=== PATIENT | male | born 1960 | race Caucasian/White ===

== ENCOUNTER 2018-02-17 02:11 | Outpatient (CLI) | payer BC, SELFPAY | END 2018-02-17 02:31 | PROVIDERS: PCP Nurse Practitioner Family; Visit Provider Family Medicine | DX: R00.2 Palpitations (principal); Z53.8 Procedure and treatment not carried out for other reasons ==

== ENCOUNTER 2019-01-30 02:15 | Outpatient (CLI) | payer OTHER, SELFPAY ==
--- NOTE | 2019-01-30 15:35 | DI.MRI_ITS ---
EXAM: MR LUMBAR SPINE WO CLINICAL HISTORY: CHRONIC BACK PAIN, M54.9, DORSALGIA, OTHER CHRONIC PAIN, G89.29. TECHNIQUE: Multiplanar multisequence MRI was performed. MR examination of the lumbosacral spine was performed according to the usual protocol. COMPARISON: No exams were available for comparison FINDINGS: Note is made of superior endplate compression of the L1 vertebral body. No significant bony signal a bnormality seen. The conus medullaris appears intact. No bony central canal spinal stenosis seen. There is neural foraminal stenosis on the right at L5-S1. Otherwise, neural foramina appear fairly w ell maintained. There are facet hypertrophic changes particularly at L4-5 and L5-S1, which may be ch aracterized as moderate. At L5-S1, there is moderate disc bulge and there is a small right lateral disc herniation, which cont ributes to right neural foraminal narrowing at this level. At L4-5, there is minimal left lateral disc herniation. No gross neural impingement. Otherwise, the intervertebral discs at the levels surveilled appear intact . IMPRESSION: Right lateral disc herniation at L5-S1, minimal left lateral disc herniation at L4-5. Please correla te with the patient's neurologic examination.
== END 2019-01-30 02:35 ==
PROVIDERS: PCP Nurse Practitioner Family; Visit Provider Nurse Practitioner Family
DX: M54.5 Low back pain (principal); M51.27 Other intervertebral disc displacement, lumbosacral region; M47.817 Spondylosis without myelopathy or radiculopathy, lumbosacral region; G89.29 Other chronic pain
CPT/HCPCS: 72148

== ENCOUNTER 2019-04-08 13:43 | Outpatient (CLI) | payer BC, SELFPAY ==
--- NOTE | 2019-04-08 06:00 | DI.RAD_ITS ---
EXAM: XR PAIN CLINIC LUMBAR SP 2V CLINICAL HISTORY: Dx: Lumbar Radiculopathy. TECHNIQUE: Fluoroscopy was provided for the referring physician for guidance with performing injecti on procedure. COMPARISON: No exams were available for comparison FINDINGS: Please see procedure note for details. Fluoro Time: 23.2 seconds RADIATION DOSE DELIVERED:
[2019-04-08 13:52] VITALS: BP 128/86; PULSE 81; RESP 18; TEMP 36.7; O2SAT 99
--- NOTE | 2019-04-08 14:01 | PDOC.PAIN ---
Pain Clinic Procedure Note Procedure Note Procedure Note: Lumbar Epidural Steroid Injection Procedure Note COMMENTS: this is related to a work related injury that caused patient to have back and leg pain since last Thanksigiving. patient was evaluated by Ms Mai Kothari APRN in our pain clinic. His symptoms is consistent with lumbar radiculopathy. Pre-operative diagnosis: lumbar radiculopathy Post-oeprative diagnosis: same as above MERRY MAYNARD has been referred to the [facility] for lumbar epidural steroid injection. The patient was greeted by the nurse who verified patients name and . Patient was then taken to the fluoroscopy suite. The patient was interviewed and the medial record reviewed. There were no medical, pharmacologic, radiographic, or other structural contraindications to attempting fluoroscopically guided lumbar epidural steroid injection. Risks and expected side effects as well as potential benefits of the procedure were reviewed and voiced concerns expressed. The patient consent form was signed and witnessed. Standard patient time-out procedure was performed. The patient was placed in the prone position on the fluoroscopy table and automated blood pressure cuff and pulse oximeter applied. The skin entry point for entering/approaching the epidural space by a L5-S1 and marked. Following thorough chlorhexadine preparation of the skin and draping and 1% lidocaine infiltration of the skin entry point and subcutaneous tissues, a 18 gauge Touhy needle was placed under fluoroscopic guidance and with loss of resistance technique into the epidural space. Needle tip placement and depth were aided and confirmed by fluoroscopy. There was no paresthesia or return of blood or CSF through the needle. 1 cc's of Omnipaque 240 was injected with clear epidural spread confirmed with fluoroscopy. 80mg depomedrol was injected, followed by 1cc of preservative free normal saline. injection of medicine reproduced patient's usual right buttock pain. There was not any unusual discomfort expressed by MERRY MAYNARD. Patient's vital signs were stable throughout the procedure and were as recorded in nursing records. Follow up plans and appointments were discussed with patient. Post procedure instruction was given as documented in nursing records and having met discharge criteria and was discharged from the [facility]. COMMENTS: If this procedure is helpful, it can be completed up to 3 times per 12 months. Of note, immediately after the procedure was completed, patient reported feeling shaky, lightheaded, nausea. He was placed in supine position in [place] position, vital signs were checked and remained stable. patient continued to endorse shaky and feeling chills, temperature was checked twice and it was afebrile 36.8C and 37.1C. Patient's bilateral lower extremity strength were checked and remained 5 out of 5 for bilateral hip flexors, hip extensors, knee extensors/flexion, dorsiflexion and plantar flextion. sensation were intact to light touch. Patient was observed to be fully ambulatory without assistance. He reports worsening pain over the injection site, rated it as 8 out of 10 compared to 5 out of 10 when he first presented for today's injection. Then patient reported that about 13 years ago, he had a similar back injection, which immediately after the procedure, he felt his genital area become numb and remained that way for several hours. He denies a history of prior contrast allergy. I recommended to patient to be observed in our post-op recovery area, get an IV started and receive 500cc of LR for symptomatic relief given he continues to report persistent dizziness. He refused the treatment and stated I do not wish to get another needle stuck in me, I just had one in my back. I will be fine and my is coming to pick me up. Patient was given water for hydration and BP, HR and Temperature were checked. BP 130/80, HR 22 and T afebrile. Patient denies chest pressure, chest pain. He was discharged after having met discharge criteria. His picked him up. I personally performed the entire procedure. Joel Zamora MD Pain Management
[2019-04-08 14:43] VITALS: BP 131/98; PULSE 83; RESP 20; TEMP 37.1; O2SAT 99
[2019-04-08 14:50] VITALS: BP 136/85; PULSE 78; RESP 13; O2SAT 99
[2019-04-08 14:55] VITALS: BP 155/98; PULSE 77; RESP 12; O2SAT 100
[2019-04-08 15:05] VITALS: BP 144/97; PULSE 78; RESP 22; TEMP 36.8; O2SAT 99
[2019-04-08] MEDS: Omnipaque 240 MG/ML 50 ML BTL IJ (15:30)
[2019-04-08] MEDS: methylPREDNISolone ACETATE 80 MG/ML VIAL IJ (15:31)
== END 2019-04-08 14:03 ==
PROVIDERS: PCP Nurse Practitioner Family; Visit Provider Internal Medicine
DX: M54.16 Radiculopathy, lumbar region (principal)
CPT/HCPCS: 62323; 72100; J1040; Q9967

== ENCOUNTER 2019-07-10 11:41 | Inpatient (IN) | payer BC, SELFPAY ==
[2019-07-10] VITALS (53 sets, daily range): BP systolic 131–160; BP diastolic 78–103; PULSE 18–95; RESP 13–25; TEMP 36.4–37.4; O2SAT 94–100
[2019-07-10] MEDS: Normal Saline 1,000 ML 1000 ML IV ×2 (12:15→13:08)
[2019-07-10] MEDS: Ondansetron 4 MG/2 ML VIAL (12:20)
--- NOTE | 2019-07-10 12:30 | DI.CT_ITS ---
EXAM: CT ABDOMEN PELVIS W CLINICAL HISTORY: epigastric pain. TECHNIQUE: Imaging Protocol: Axial computed tomography images with coronal and sagittal reformatted images were created and reviewed CONTRAST MATERIAL: Intravenous: Omnipaque 350 Contrast volume:80 ml Oral: no COMPARISON: No exams were available for comparison FINDINGS: Exam is limited by lack of oral contrast and lack of intra-abdominal fat as well as patient motion. Bowel is not well evaluated. ABDOMEN: Lung Bases: Mild dependent changes.. Liver: Fatty infiltration.. No measurable mass. Gallbladder and biliary tract: No radiodense calculus or dilation. Pancreas: Normal density, no abnormal calcifications or inflammatory process. Spleen: Normal. Kidneys: Normal size, contour and axis. No radiodense stones or obstructive uropathy. No masses seen. Adrenal glands: No masses seen. Abdominal Aorta: Abdominal portion non-dilated. Mild calcification. PELVIS: Bladder: Mildly distended. Question of wall thickening. No mass or stone is visible.. Bowel: There is mild dilatation of loops of small bowel in the mid to lower abdomen which are fluid f illed. No bowel wall thickening or pneumatosis is seen. No transition point is visible. The append ix appears normal. The colon contains a moderate quantity of stool. There is sigmoid diverticulosis but no evidence of diverticulitis.. Peritoneal cavity: No ascites, collection or mesenteric inflammatory response. No free air. Bones: The spine appears osteoporotic. Degenerative disc changes are seen.. Reproductive organs: Mildly enlarged prostate.. Lymph nodes: Unremarkable. Impression: Mildly dilated fill fluid-filled loops of mid small bowel without definite transition point. Finding s could indicate a enteritis versus mild partial small bowel obstruction.. RADIATION DOSE DELIVERED: 455.12mGy.cm Total DLP DATA REPOSITORY: All CT scans at this facility are submitted to the National Radiology Data Registry (NRDR) Dose Index Registry (DIR) with the [employer] ([employer]). RADIATION OPTIMIZATION: All CT scans at this facility use at least one of these dose optimization te chniques: automated exposure control; mA and/or kV adjustment per patient size (includes targeted exa ms where dose is matched to clinical indication); or iterative reconstruction.
[2019-07-10] MEDS: PANTOPRAZOLE 80 MG in Normal Saline 100 ML 10 MG IV (12:47)
[2019-07-10 12:51] LABS: Absolute Basophil Count 0.01 k/cumm (0.0-0.2); Absolute Eosinophil Count 0.02 k/cumm (0.0-0.7); Absolute Lymphocyte Count 1.09 k/cumm (1.2-3.4); Absolute Monocyte Count 0.84 k/cumm (0.11-0.7); Absolute Neutrophil Count 3.56 k/cumm (1.2-6.7); Basophils % 0.2; Eosinophils % 0.4; HCT 43.3 % (40.0-50.0); HGB 15.2 g/dL (13.5-17.5); Immature Grans % 1.8 %; Lymphocytes % 19.4; Mean Corp. HGB Concentration 35.1 g/dL (32.0-36.0); Mean Corpuscular Hemoglobin 33.3 pg (27.0-33.0); Mean Platelet Volume 9.7 fL (8.0-11.0); Monocytes % 14.9; Neutrophils % 63.3; Platelet Count 204 x1000/uL (130-400); RBC 4.56 m/cumm (4.50-6.00); White Blood Cell Count 5.62 k/cumm (4.4-10.8)
[2019-07-10] MEDS: diphenhydrAMINE 50 MG/ML VIAL IVP (12:56)
--- NOTE | 2019-07-10 12:58 | ED.GENADUL_ITS ---
Discharge Plan Disposition Patient Disposition: [facility] INPATIENT Condition: Stable Discharge Details Chief Complaint: Abd Prob Clinical Impression: Nausea & vomiting Admit Date/Time: 07/10/19 16:41 Admit Provider: Mirian Wetzel Attending Provider: Mirian Wetzel Primary Care Provider: Jazzy Hyde ED Provider: Elly Gomez Discharge Data Discharge Date/Time-TO BE ENTERED AT DEPARTURE: 07/10/19 18:35 Medical Decision Making <ALFA Titus - Last Filed: 07/11/19 08:07> 58-year-old gentleman with history of chronic back pain, upper GI bleed, alcohol abuse, presents for abdominal pain, nausea, vomiting that began earlier today. He appears anxious, dry heaving, in mild distress. It does make examination rather difficult. He does appear uncomfortable. Will initiate IV access, give IV fluid, Zofran, GI cocktail as well as Protonix for his known history of GI bleeding. Differential includes but not excluded to gastric ulcer, gastritis, alcoholic hepatitis, pancreatitis, GI bleed, bowel obstruction, cholecystitis. Case was discussed with Dr. Andrew who evaluate the patient in the room. Please see his note. In the meantime I was able to review studies from [place] [facility], CT chest, abdomen, pelvis unremarkable. Patient received very little relief from initial medications. Now given 1 mg IV Ativan as I do question if there could be a component of withdrawal. Given Compazine and Benadryl. Initial laboratory values are unremarkable for any acute or emergent process. CT imaging reveals suspicion for enteritis versus mild partial small bowel obstruction. Given the mild partial small bowel obstruction I discussed the case with our surgical team, Dr. Wetzel. She reviewed the CT and is recommending an abdominal ultrasound to further evaluate the gallbladder. Gall bladder ultrasound ordered. Medical Records Medical records reviewed: Yes I reviewed the patient's medical records. Imaging Data Radiologic Study: Attestation: I personally reviewed and interpreted this imaging study as follows: Imaging: CT Scan Radiologist's impression: Mildly dilated fluid-filled loops of mid small bowel without definitive transition point. Findings could be indicative of enteritis versus mild partial small bowel obstruction Lab Data Lab results reviewed: Yes I reviewed the patient's lab results. Lab results narrative: Laboratory Tests Range/Units 05/29/20 05/29/20 05/29/20 11:50 11:50 11:50 WBC (4.4-10.8) k/cumm 5.62 RBC (4.50-6.00) m/cumm 4.56 Hgb (13.5-17.5) g/dL 15.2 Hct (40.0-50.0) % 43.3 MCV (80-95) fL 95.0 MCH (27.0-33.0) pg 33.3 H MCHC (32.0-36.0) g/dL 35.1 RDW (11.8-14.1) % 14.0 Plt Count (130-400) x1000/uL 204 MPV (8.0-11.0) fL 9.7 Immature Gran % % 1.8 Neutrophils % 63.3 Lymphocytes % 19.4 Monocytes % 14.9 Eosinophils % 0.4 Basophils % 0.2 Absolute Neutrophils (1.2-6.7) k/cumm 3.56 Absolute Lymphocytes (1.2-3.4) k/cumm 1.09 L Absolute Monocytes (0.11-0.7) k/cumm 0.84 H Absolute Eosinophils (0.0-0.7) k/cumm 0.02 Absolute Basophils (0.0-0.2) k/cumm 0.01 PT (9.3-11.0) sec 9.0 L INR (0.9-1.1) 0.9 Sodium (136-145) mmol/L Potassium (3.5-5.1) mmol/L Chloride (98-107) mmol/L Carbon Dioxide (21.0-32.0) mmol/L Anion Gap (3-11) mmol/L BUN (7-18) mg/dL Creatinine (0.70-1.30) mg/dL Estimated GFR/1.73 m2 (mL/min/1.73m2) Glucose (74-106) mg/dL Lactate (0.6-1.4) mmol/L Calcium (8.5-10.1) mg/dL Total Bilirubin (0.2-1.0) mg/dL AST (15-37) U/L ALT (16-63) U/L Alkaline Phosphatase (46-116) U/L Total Protein (6.4-8.2) g/dL Albumin (3.4-5.0) g/dL Lipase (73-393) U/L 141 Urine Color (Yellow) Urine Clarity (Clear) Urine pH (5-8) Ur Specific [place] (1.005-1.025) Urine Protein (Negative) mg/dL Urine Ketones (Negative) mg/dL Urine Blood (Negative) Urine Nitrite (Negative) Urine Bilirubin (Negative) Urine Urobilinogen (Up TO 0.2) EU/dL Ur Leukocyte Esterase (Negative) Urine Glucose (Negative) mg/dL Ethyl Alcohol (<3) mg/dL Range/Units 07/10/19 07/10/19 07/10/19 11:50 12:24 13:15 WBC (4.4-10.8) k/cumm RBC (4.50-6.00) m/cumm Hgb (13.5-17.5) g/dL Hct (40.0-50.0) % MCV (80-95) fL MCH (27.0-33.0) pg MCHC (32.0-36.0) g/dL RDW (11.8-14.1) % Plt Count (130-400) x1000/uL MPV (8.0-11.0) fL Immature Gran % % Neutrophils % Lymphocytes % Monocytes % Eosinophils % Basophils % Absolute Neutrophils (1.2-6.7) k/cumm Absolute Lymphocytes (1.2-3.4) k/cumm Absolute Monocytes (0.11-0.7) k/cumm Absolute Eosinophils (0.0-0.7) k/cumm Absolute Basophils (0.0-0.2) k/cumm PT (9.3-11.0) sec INR (0.9-1.1) Sodium (136-145) mmol/L 132 L Potassium (3.5-5.1) mmol/L 3.9 Chloride (98-107) mmol/L 94 L Carbon Dioxide (21.0-32.0) mmol/L 27.2 Anion Gap (3-11) mmol/L 10.8 BUN (7-18) mg/dL 10 Creatinine (0.70-1.30) mg/dL 0.84 Estimated GFR/1.73 m2 (mL/min/1.73m2) >= 60.00 Glucose (74-106) mg/dL 103 Lactate (0.6-1.4) mmol/L Calcium (8.5-10.1) mg/dL 9.6 Total Bilirubin (0.2-1.0) mg/dL 0.6 AST (15-37) U/L 72 H ALT (16-63) U/L 122 H Alkaline Phosphatase (46-116) U/L 79 Total Protein (6.4-8.2) g/dL 7.9 Albumin (3.4-5.0) g/dL 4.3 Lipase (73-393) U/L Urine Color (Yellow) Yellow Urine Clarity (Clear) Clear Urine pH (5-8) 7.0 Ur Specific [place] (1.005-1.025) 1.020 Urine Protein (Negative) mg/dL Negative Urine Ketones (Negative) mg/dL 15 H Urine Blood (Negative) Negative Urine Nitrite (Negative) Negative Urine Bilirubin (Negative) Negative Urine Urobilinogen (Up TO 0.2) EU/dL 1.0 H Ur Leukocyte Esterase (Negative) Negative Urine Glucose (Negative) mg/dL Negative Ethyl Alcohol (<3) mg/dL 4.6 Range/Units 07/10/19 13:25 WBC (4.4-10.8) k/cumm RBC (4.50-6.00) m/cumm Hgb (13.5-17.5) g/dL Hct (40.0-50.0) % MCV (80-95) fL MCH (27.0-33.0) pg MCHC (32.0-36.0) g/dL RDW (11.8-14.1) % Plt Count (130-400) x1000/uL MPV (8.0-11.0) fL Immature Gran % % Neutrophils % Lymphocytes % Monocytes % Eosinophils % Basophils % Absolute Neutrophils (1.2-6.7) k/cumm Absolute Lymphocytes (1.2-3.4) k/cumm Absolute Monocytes (0.11-0.7) k/cumm Absolute Eosinophils (0.0-0.7) k/cumm Absolute Basophils (0.0-0.2) k/cumm PT (9.3-11.0) sec INR (0.9-1.1) Sodium (136-145) mmol/L Potassium (3.5-5.1) mmol/L Chloride (98-107) mmol/L Carbon Dioxide (21.0-32.0) mmol/L Anion Gap (3-11) mmol/L BUN (7-18) mg/dL Creatinine (0.70-1.30) mg/dL Estimated GFR/1.73 m2 (mL/min/1.73m2) Glucose (74-106) mg/dL Lactate (0.6-1.4) mmol/L 1.3 Calcium (8.5-10.1) mg/dL Total Bilirubin (0.2-1.0) mg/dL AST (15-37) U/L ALT (16-63) U/L Alkaline Phosphatase (46-116) U/L Total Protein (6.4-8.2) g/dL Albumin (3.4-5.0) g/dL Lipase (73-393) U/L Urine Color (Yellow) Urine Clarity (Clear) Urine pH (5-8) Ur Specific [place] (1.005-1.025) Urine Protein (Negative) mg/dL Urine Ketones (Negative) mg/dL Urine Blood (Negative) Urine Nitrite (Negative) Urine Bilirubin (Negative) Urine Urobilinogen (Up TO 0.2) EU/dL Ur Leukocyte Esterase (Negative) Urine Glucose (Negative) mg/dL Ethyl Alcohol (<3) mg/dL <Jae Andrew MD - Last Filed: 07/10/19 16:56> Patient seen, examined, and discussed with ALFA Lin and KALA Gomez. I agree with treatment plan as discussed/documented. I spoke with Dr. Wetzel who is here to evaluate the patient. Patient to be admitted to surgical service by Dr. Wetzel for intractable vomiting inability to tolerate p.o. <Elly Gomez - Last Filed: 07/10/19 22:21> 1623: Assumed care of patient from ALFA Farias Dr. Stoiber surgeon on- call is currently at bedside for patient evaluation and possible admission. Patient continues to complain of nausea, Phenergan ordered. 1648: Per [place], patient had a negative COVID-19 test result on July 06. Patient is to be admitted for an endoscopy in the a.m. per Dr. Wetzel. HPI <ALFA Titus - Last Filed: 07/11/19 08:07> General Mode of arrival: ambulatory . Date/Time Provider Initiated Documentation: 07/10/19 11:54 . Limitations to Documentation: no limitations . Information obtained by: patient . HPI Narrative: This is a 58-year-old gentleman with history of low back pain, anxiety, duodenitis, chronic alcohol abuse, upper GI bleed, presenting to the ER today for evaluation of diffuse upper abdominal pain, nausea, vomiting that began approximately 5 hours ago. He reports a history of GI bleed approximately 1 year ago. Reports that he had been pain-free up until about 4 days ago, was seen at the ER in [place] and subsequently admitted, discharged 1-1/2 days ago. Patient reports that while he was at [facility] he received CT imaging and ultrasound and no emergent process was found although he reports that they were going to do further studies for his gallbladder. Patient admits to drinking alcohol daily but is cut down his alcohol use to only a couple beers a day. He denies drug use. Patient denies recent illness or trauma. Denies headache, fever, chest pain, shortness of breath, dysuria, constipation. Reports loose stool although his most recent stools were not dark and tarry or consistent with bright red blood. Related Data Home Medications Medication Instructions Recorded Confirmed melatonin 3 mg PO HS 09/20/17 07/10/19 ibuprofen 800 mg tablet 800 mg PO TID PRN 02/24/18 07/10/19 acetaminophen 500 mg tablet 500 - 1,000 mg PO TID PRN #90 02/28/18 07/10/19 tab-cap ondansetron 4 mg disintegrating 4 mg PO .Q4-6H PRN #60 tab-cap 02/28/18 07/10/19 tablet pantoprazole 40 mg tablet,delayed 40 mg PO BID 02/28/18 07/10/19 release polyethylene glycol 3350 17 17 gm PO DAILY PRN #119 gm 02/28/18 07/10/19 gram/dose oral powder sucralfate 1 gram tablet 1 gm PO BID tab 02/28/18 07/10/19 multivitamin 1 tab PO DAILY 03/05/18 07/10/19 lidocaine 5 % topical patch 1 patch TP .q 12 h PRN #10 each 04/07/18 07/10/19 methocarbamol 500 mg tablet 500 mg PO HS PRN #60 tab-cap 06/09/19 07/10/19 aluminum-mag hydroxide-simethicone 10 ml PO Q6H PRN 07/10/19 07/10/19 200 mg-200 mg-20 mg/5 mL oral susp Previous Rx's Medication Instructions Recorded acetaminophen 500 mg tablet 500 - 1,000 mg PO TID PRN #90 02/28/18 tab-cap ondansetron 4 mg disintegrating 4 mg PO .Q4-6H PRN #60 tab-cap 02/28/18 tablet polyethylene glycol 3350 17 17 gm PO DAILY PRN #119 gm 02/28/18 gram/dose oral powder lidocaine 5 % topical patch 1 patch TP .q 12 h PRN #10 each 04/07/18 methocarbamol 500 mg tablet 500 mg PO HS PRN #60 tab-cap 06/09/19 Allergies Allergy/AdvReac Type Severity Reaction Status Date / Time No Known Allergies Allergy Unverified 07/10/19 11:53 General Stated Complaint: Abd Prob GALLO: 3 Review of Systems <ALFA Titus - Last Filed: 07/11/19 08:07> Constitutional Constitutional: Denies fatigue, Denies fever(s), Denies headache(s) and Denies weakness Eyes Eyes: Denies change in vision ENT Ears, Nose, Mouth, and Throat: Denies headache(s) and Denies sore throat Cardiovascular Cardiovascular: Denies chest pain and Denies dyspnea Respiratory Respiratory: Denies cough and Denies dyspnea Gastrointestinal Gastrointestinal: Reports abdominal pain, Denies melena, Denies constipation, Reports cramping, Reports loose stools, Reports nausea and Reports vomiting Genitourinary Genitourinary: Denies dysuria Musculoskeletal Musculoskeletal: Reports back pain (Chronic in nature), Denies numbness and Denies tingling Integumentary/Breasts Skin/Breast: Denies rash Neurologic Neurologic: Denies headache(s), Denies numbness, Denies tingling and Denies weakness Psychiatric Psychiatric: Reports anxiety Endocrine Endocrine: Denies fatigue PFSH <ALFA Titus - Last Filed: 07/11/19 08:07> Medical History (Updated 07/10/19 @ 20:54 by Mirian Wetzel DO) Abnormal LFTs (Inactive 04/27/15) Alcohol use disorder (Chronic) Anxiety (Chronic 01/26/13) With sleep disruption Remeron effective management Diverticulosis of large intestine without hemorrhage (Chronic 04/27/15) Duodenitis (Acute) 02/22/2018 EGD: duodenitis and 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 Hemorrhoids (Resolved 01/26/13) Hemorrhoidectomy 11/2012 [facility] Hypertension (Acute) 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) Intractable nausea and vomiting (Acute) Palpitation (Resolved) RUQ abdominal pain (Acute) Upper GI hemorrhage (Acute) 02/2018 [facility] Hospital admission; 02/22/2018 EGD (Kwabnea Bucio MD/Surgeon) showing duodenitis with changes concerning for possible malignancy Family History Father , From prostate CA Prostate cancer Social History Smoking/Tobacco Use Status: Never Alcohol Intake: current Alcohol Intake frequency: 3 or more drinks per day Alcohol type: beer Details: Rehab, August 2017, trying to quit Drug use: Daily Substance use type: marijuana Details: states usually has 8 beers a day couple beers last night - none today 1 hit of marijuana today Caregiver/Support person: No Household members: spouse Housing: house Number of Children: 0 Communication Needs: Hard of Hearing 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 Sexually active: Yes Current gender identity: male What type of physical activity do you participate in: regular exercise Frequency: 1-2 times per week Seatbelt use: always Working smoke detector in home: Yes Carbon monox detector in home: Yes Do you feel safe at home: Yes Do you feel safe in your relationship?: Yes Exam <ALFA Titus - Last Filed: 07/11/19 08:07> Const General: cooperative, in distress mild (Dry heaving) and anxious Orientation: alert and awake HENMT Head: normal to inspection, normocephalic and atraumatic Mouth: moist mucous membranes Throat: posterior oropharynx normal Eyes Conjunctivae: conjunctivae normal Neck Neck: normal visual inspection, full ROM, trachea midline, supple and nontender Resp Effort & Inspection: normal respiratory effort and able to speak in complete sentences Auscultation: clear to auscultation bilaterally Cardio Rate: regular rate Rhythm: regular rhythm GI Inspection: normal to inspection Palpation: soft, not firm, guarding in the LUQ and in the RUQ, not rigid and tender in the epigastrum, in the LUQ and in the RUQ; with no rebound tenderness Auscultation: normal bowel sounds Back/Spine/Pelvis Back: No back tenderness Skin General skin exam: no rashes or lesions noted Neuro General: patient alert, patient awake, moves all extremities and no focal motor deficits Motor: muscle tone normal throughout Sensory Exam: no sensory deficits noted Extrem General: normal to inspection, full ROM and capillary refill normal Psych Appearance: grossly normal Mental Status: mental status grossly normal Course <ALFA Titus - Last Filed: 07/11/19 08:07> Vital Signs Vital signs: Vital Signs Temperature 36.4 C L 07/10/19 11:45 Pulse 95 H 07/10/19 11:45 Respiratory Rate 24 07/10/19 11:45 Blood Pressure 150/96 H 07/10/19 11:45 Pulse Oximetry 99 07/10/19 11:45 Temperature 36.4 C L 07/10/19 11:45 Temperature Source Skin 07/10/19 11:45 Pulse 95 H 07/10/19 11:45 Respiratory Rate 24 07/10/19 11:45 Blood Pressure 150/96 H 07/10/19 11:45 Pulse Oximetry 99 07/10/19 11:45 Oxygen Delivery Method Room Air 07/10/19 11:45 Oxygen Flow Rate 0 07/10/19 11:45 Pain Level 10 07/10/19 11:45 Lab/Test Results Lab/Test Results: Laboratory Tests Range/Units 07/10/19 11:50 WBC (4.4-10.8) k/cumm 5.62 RBC (4.50-6.00) m/cumm 4.56 Hgb (13.5-17.5) g/dL 15.2 Hct (40.0-50.0) % 43.3 MCV (80-95) fL 95.0 MCH (27.0-33.0) pg 33.3 H MCHC (32.0-36.0) g/dL 35.1 RDW (11.8-14.1) % 14.0 Plt Count (130-400) x1000/uL 204 MPV (8.0-11.0) fL 9.7 Immature Gran % % 1.8 Neutrophils % 63.3 Lymphocytes % 19.4 Monocytes % 14.9 Eosinophils % 0.4 Basophils % 0.2 Absolute Neutrophils (1.2-6.7) k/cumm 3.56 Absolute Lymphocytes (1.2-3.4) k/cumm 1.09 L Absolute Monocytes (0.11-0.7) k/cumm 0.84 H Absolute Eosinophils (0.0-0.7) k/cumm 0.02 Absolute Basophils (0.0-0.2) k/cumm 0.01 Sign Out <ALFA Titus - Last Filed: 07/11/19 08:07> Sign Out Data: Sign Out Comment: Pending right upper quadrant ultrasound, surgical consultation, reassessment and final disposition Last updated by Nikolas Lin PA at 07/10/19 15:46
[2019-07-10] MEDS: LORazepam 2 MG/ML VIAL 1 MG IVP (12:59)
[2019-07-10] MEDS: Prochlorperazine 10 MG/2 ML VIAL IVP (13:02)
[2019-07-10 13:03] LABS: Lipase 141 U/L (73-393)
[2019-07-10 13:05] LABS: ETHANOL BLOOD 4.6 mg/dL (<3)
[2019-07-10 13:08] LABS: ALT 122 U/L (16-63); AST 72 U/L (15-37); Albumin 4.3 g/dL (3.4-5.0); Alkaline Phosphatase 79 U/L (46-116); Anion Gap 10.8 mmol/L (3-11); BUN 10 mg/dL (7-18); Bilirubin, Total 0.6 mg/dL (0.2-1.0); CO2 27.2 mmol/L (21.0-32.0); CREATININE 0.84 mg/dL (0.70-1.30); Calcium 9.6 mg/dL (8.5-10.1); Chloride 94 mmol/L (98-107); Glucose 103 mg/dL (74-106); Potassium 3.9 mmol/L (3.5-5.1); Sodium 132 mmol/L (136-145); Total Protein 7.9 g/dL (6.4-8.2)
[2019-07-10] MEDS: Normal Saline Flush 10 ML SYR IVP ×2 (13:08→19:52)
[2019-07-10 13:10] LABS: INR 0.9 (0.9-1.1)
[2019-07-10 13:28] LABS: Bilirubin Negative (Negative); Blood Negative (Negative); Clarity Clear (Clear); Glucose Negative (Negative); Ketones 15 mg/dL (Negative); Leukocyte Esterase Negative (Negative); Nitrite Negative (Negative)
[2019-07-10 13:29] LABS: Lactate 1.3 mmol/L (0.6-1.4)
[2019-07-10] MEDS: Normal Saline - Diluent 50 ML VIAL IV (13:45)
[2019-07-10] MEDS: Omnipaque 350 MG/ML 100 ML BTL IJ (13:47)
--- NOTE | 2019-07-10 14:45 | DI.US_ITS ---
EXAM: US ABDOMEN CLINICAL HISTORY: Right upper quadrant pain TECHNIQUE: Ultrasound performed using standard protocol. COMPARISON: No exams were available for comparison FINDINGS: The liver is normal in size. There is mildly increased echogenicity, consistent with fatty infiltra tion. The gallbladder is somewhat contracted. No stones, wall thickening or pericholecystic fluid i s seen. The common bile duct measures 3 millimeters. There is no tenderness while scanning over the gallbladder. Spleen is normal in size. A small splenic granuloma is seen. The kidneys are normal in size. No hydronephrosis or stones are seen. There is no ascites. The aorta is normal in diamete r. IMPRESSION: Mild fatty infiltration of the liver. Contracted gallbladder. No evidence of stones or ductal dil atation. DATA REPOSITORY:
[2019-07-10 15:07] LABS: C-Reactive Protein 0.77 mg/dL (0.0-0.3)
[2019-07-10 15:34] LABS: GGT 179 U/L (15-85)
--- NOTE | 2019-07-10 16:48 | HPE_ITS ---
Date of service: 07/10/19 Time of Service: 16:49 Assessment and Plan Assessment and plan (1) Intractable nausea and vomiting: Status: Acute Assessment and plan: pt has thrown up x2 GI cocktails in the ED Sunny did not help -WIll admit for hydration and antiemetics. EGD in am Informed consent is obtained for the procedural (explained in simple layman's terms that the pt and/or family could understand) explaining risks vs benefits and alternatives to the procedure and consequences if we do not do the procedure and need/rational for the procedure. Risks include but are not limited to: bleeding, infection, perforation of esophagus, stomach, colon, small intestines, bronchus or trachea, or PTX. This would necessitate emergency surgery to repair the damage w/ possible ostomy; and other associated complications w/ the required surgery. Also complications of anesthesia including aspiration, SC/CVA/. (2) Chronic back pain: Status: Acute (3) Duodenitis: Status: Acute Assessment and plan: Hs of duodenitis and duodenal hemorrhage. Pt is suppose yo be onPPI & carafet. Pt isn't sure if he is taking meds. extensive ETOH use d/o. He also takes NSAID's regularily. (4) Alcohol use disorder: Status: Chronic Assessment and plan: no hx of DT's or seizures when he stops using ETOH. (5) Hemorrhoids: Status: Resolved (6) Abnormal LFTs: Status: Inactive (7) Hypertension: Status: Acute (8) RUQ abdominal pain: Status: Acute Assessment and plan: HIDA scan on Saturday History of Present Illness Consults Consult date: 07/10/19 Requesting physician: Jae Andrew Narrative: pt present to ED w/ intractable n/v. And right upper quadrant pain/abdominal pain. He is also been having diarrhea. Patient was just in [facility] for 48 hours with the same signs of symptoms. he was on Protonix and Carafate. [place] thought that his signs and symptoms were related to gallbladder disease. He had a normal ultrasound and CAT scan and relatively normal labs there as well, as well as here today. He has a longstanding history of alcohol abuse. He has a history of a bleeding duodenal ulcer- in 2019. At that time, he was vomiting blood and having dark tarry stools. He is not vomiting up any blood today. He is hemodynamically stable. His signs and symptoms seem to be more compatible with gallbladder disease. However he does have a history of ulcer disease. He is a long standing alcoholic, and also takes a lot of ibuprofen for chronic back pain. He doesn't use tobacco products. He is not vomiting up any blood. He is not had any black tarry stools. He was recently in [facility] for 48hrs. He says he felt better, and went home. He says he was not put on any stomach medication. (He was placed on a PPI and carafate per the records). He did go home adn drink. It is unclear if he took his meds when he went home. He also ate a hamburger last pm. When he woke up this am- he had stomach pain adn nausea again. He is also experiencing diarrhea. It is mostly liquid. There is no blood. He has not been on abx. He has not been on abx that he is aware of. He doesn' t know if there is a fam hx of GB Dx. His s/s today feel like when he had the doudenal ulcer. He did not have any w/drawl s/s at [place]. He not had seizures or DT's when stopping ETOH. ED staff says when he came into the ED he did have pretty signif abdom pain. He has been medicated for pain. At this point he is unable to keep anything down despite having a GI cocktail and IV Protonix. So I think we are going to have. We will plan on doing EGD in the a.m. And hopefully we can get a HIDA scan on Saturday if he still not feeling well. Pt had a Covid test on 07/06 and was neg. 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) Palpitation (Resolved) Upper GI hemorrhage (Acute) 02/2018 [facility] Hospital admission; 02/22/2018 EGD (Kwabena Bucio MD/Surgeon) showing duodenitis with changes concerning for possible malignancy Family History Father , From prostate CA Prostate cancer Social History Smoking/Tobacco Use Status: Never Alcohol Intake: current Alcohol Intake frequency: 3 or more drinks per day Alcohol type: beer Details: Rehab, August 2017, trying to quit Drug use: Daily Substance use type: marijuana Details: states usually has 8 beers a day couple beers last night - none today 1 hit of marijuana today Caregiver/Support person: No Household members: spouse Housing: house Number of Children: 0 Communication Needs: Hard of Hearing 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 Sexually active: Yes Current gender identity: male What type of physical activity do you participate in: regular exercise Frequency: 1-2 times per week Seatbelt use: always Working smoke detector in home: Yes Carbon monox detector in home: Yes Do you feel safe at home: Yes Do you feel safe in your relationship?: Yes Meds Home Medications and Allergies Home Medications Medication Instructions Recorded Confirmed Type melatonin 3 mg PO HS 09/20/17 07/10/19 History ibuprofen 800 mg tablet 800 mg PO TID PRN 02/24/18 07/10/19 History acetaminophen 500 mg tablet 500 - 1,000 mg PO TID PRN #90 02/28/18 07/10/19 Rx tab-cap ondansetron 4 mg disintegrating 4 mg PO .Q4-6H PRN #60 tab-cap 02/28/18 07/10/19 Rx tablet pantoprazole 40 mg tablet,delayed 40 mg PO BID 02/28/18 07/10/19 History release polyethylene glycol 3350 17 17 gm PO DAILY PRN #119 gm 02/28/18 07/10/19 Rx gram/dose oral powder sucralfate 1 gram tablet 1 gm PO BID tab 02/28/18 07/10/19 History multivitamin 1 tab PO DAILY 03/05/18 07/10/19 History lidocaine 5 % topical patch 1 patch TP .q 12 h PRN #10 each 04/07/18 07/10/19 Rx methocarbamol 500 mg tablet 500 mg PO HS PRN #60 tab-cap 06/09/19 07/10/19 Rx aluminum-mag hydroxide-simethicone 10 ml PO Q6H PRN 07/10/19 07/10/19 History 200 mg-200 mg-20 mg/5 mL oral susp Allergies Allergy/AdvReac Type Severity Reaction Status Date / Time No Known Allergies Allergy Unverified 07/10/19 11:53 Exam Const General: cooperative and no acute distress Nutritional Appearance: cachectic and malnourished Orientation: alert, awake and oriented x3 HENMT Head: normal to inspection, normocephalic and atraumatic Ears: hearing grossly normal bilaterally and external ears normal General nose exam: external nose normal Face and sinus: normal facial exam and sinuses nontender Mouth: oral mucosae normal, lip normal, tongue normal and moist mucous membranes Teeth and gingiva: poor dentition Other: appears older than states age. Eyes General: appearance normal, both eyes and all related structures Conjunctivae: conjunctivae normal Sclera: sclerae normal Pupils: PERRL Neck Neck: normal visual inspection and full ROM Chest Chest: normal inspection of the chest Resp Effort & Inspection: normal respiratory effort, able to speak in complete sentences, no cough, no nasal flaring, not tachypneic and no use of accessory muscles Auscultation: clear to auscultation bilaterally, no rales, no rhonchi and no wheezes Cardio Jugular venous pressure: no JVD Rate: regular rate Rhythm: regular rhythm GI Inspection: normal to inspection, no edema and distended Palpation: soft, no masses, tender in the epigastrum and in the RUQ; with no rebound tenderness and Rovsing's sign negative and No ascites Auscultation: normal bowel sounds Skin General skin exam: no rashes or lesions noted Trauma: no lacerations or abrasions Neuro General: patient alert, patient oriented x3, oriented, gait normal, moves all extremities, no focal motor deficits and CN's II-XI intact bilaterally Cognition: normal cognition Speech: speech normal Gait: normal gait Motor: muscle tone normal throughout Extrem General: normal to inspection, full ROM and no clubbing, cyanosis or edema Psych Appearance: grossly normal and well kempt Mental Status: mental status grossly normal Speech and Movement: speech and movement normal Affect: normal affect Results Labs Result diagrams: 07/10/19 11:50 07/10/19 12:24 Labs: Laboratory Results - last 24 hr 07/10/19 07/10/19 07/10/19 11:50 11:50 11:50 WBC 5.62 RBC 4.56 Hgb 15.2 Hct 43.3 MCV 95.0 MCH 33.3 H MCHC 35.1 RDW 14.0 Plt Count 204 MPV 9.7 Immature Gran % 1.8 Neutrophils % 63.3 Lymphocytes % 19.4 Monocytes % 14.9 Eosinophils % 0.4 Basophils % 0.2 Absolute Neutrophils 3.56 Absolute Lymphocytes 1.09 L Absolute Monocytes 0.84 H Absolute Eosinophils 0.02 Absolute Basophils 0.01 PT 9.0 L INR 0.9 Sodium Potassium Chloride Carbon Dioxide Anion Gap BUN Creatinine Estimated GFR/1.73 m2 Glucose Lactate Calcium Total Bilirubin GGT AST ALT Alkaline Phosphatase C-Reactive Protein Total Protein Albumin Lipase 141 Urine Color Urine Clarity Urine pH Ur Specific [place] Urine Protein Urine Ketones Urine Blood Urine Nitrite Urine Bilirubin Urine Urobilinogen Ur Leukocyte Esterase Urine Glucose Ethyl Alcohol 07/10/19 07/10/19 07/10/19 11:50 12:24 13:15 WBC RBC Hgb Hct MCV MCH MCHC RDW Plt Count MPV Immature Gran % Neutrophils % Lymphocytes % Monocytes % Eosinophils % Basophils % Absolute Neutrophils Absolute Lymphocytes Absolute Monocytes Absolute Eosinophils Absolute Basophils PT INR Sodium 132 L Potassium 3.9 Chloride 94 L Carbon Dioxide 27.2 Anion Gap 10.8 BUN 10 Creatinine 0.84 Estimated GFR/1.73 m2 >= 60.00 Glucose 103 Lactate Calcium 9.6 Total Bilirubin 0.6 GGT AST 72 H ALT 122 H Alkaline Phosphatase 79 C-Reactive Protein Total Protein 7.9 Albumin 4.3 Lipase Urine Color Yellow Urine Clarity Clear Urine pH 7.0 Ur Specific [place] 1.020 Urine Protein Negative Urine Ketones 15 H Urine Blood Negative Urine Nitrite Negative Urine Bilirubin Negative Urine Urobilinogen 1.0 H Ur Leukocyte Esterase Negative Urine Glucose Negative Ethyl Alcohol 4.6 07/10/19 07/10/19 13:25 13:25 WBC RBC Hgb Hct MCV MCH MCHC RDW Plt Count MPV Immature Gran % Neutrophils % Lymphocytes % Monocytes % Eosinophils % Basophils % Absolute Neutrophils Absolute Lymphocytes Absolute Monocytes Absolute Eosinophils Absolute Basophils PT INR Sodium Potassium Chloride Carbon Dioxide Anion Gap BUN Creatinine Estimated GFR/1.73 m2 Glucose Lactate 1.3 Calcium Total Bilirubin GGT 179 H AST ALT Alkaline Phosphatase C-Reactive Protein 0.77 H Total Protein Albumin Lipase Urine Color Urine Clarity Urine pH Ur Specific [place] Urine Protein Urine Ketones Urine Blood Urine Nitrite Urine Bilirubin Urine Urobilinogen Ur Leukocyte Esterase Urine Glucose Ethyl Alcohol Last Vital Signs Temp 37.0 C 07/10/19 15:58 Pulse 86 07/10/19 15:58 Resp 23 07/10/19 15:58 BP 144/100 H 07/10/19 15:58 Pulse Ox 98 07/10/19 15:58 COVID-19 Screening In the past 14 days, have you traveled outside of [place] or [place]?: NO Had IN PERSON contact w/suspected or confirmed C-19 person: No
[2019-07-10 17:22] LABS: Magnesium 2.3 mg/dL (1.8-2.4)
--- NOTE | 2019-07-10 17:33 | NUR.NOTE ---
pt states he has not been taking many of his meds as he has been feeling well most of the time Nursing Note:
[2019-07-10] MEDS: FAMOTIDINE 20 MG/50 ML BAG 200 MG IVPB (19:52)
[2019-07-10] MEDS: Normal Saline 1,000 ML 125 ML IV (19:52)
[2019-07-10] MEDS: cefTRIAXone 1 GM/50 ML BAG IVPB (20:25)
[2019-07-10] MEDS: ACETAMINOPHEN 1,000 MG/100 ML BTL 400 MG IVPB (21:38)
[2019-07-10] MEDS: Sucralfate 1 GM TAB PO (21:38)
[2019-07-10] MEDS: LORazepam 1 MG TAB PO/SL (22:32)
[2019-07-11] MEDS: LORazepam 1 MG TAB PO/SL ×6 (00:58→23:18)
[2019-07-11] MEDS: Normal Saline 1,000 ML 125 ML IV (04:55)
[2019-07-11 06:21] VITALS: BP 156/106; PULSE 81; RESP 18; TEMP 37.2; O2SAT 98
[2019-07-11] MEDS: FAMOTIDINE 20 MG/50 ML BAG 200 MG IVPB (06:29)
[2019-07-11 07:41] VITALS: BP 167/100; PULSE 75; RESP 18; TEMP 36.6; O2SAT 97
[2019-07-11 08:01] LABS: Abs Immature Grans 0.09 k/cumm (0.0-0.09); Absolute Basophil Count 0.01 k/cumm (0.0-0.2); Absolute Eosinophil Count 0.06 k/cumm (0.0-0.7); Absolute Lymphocyte Count 0.83 k/cumm (1.2-3.4); Absolute Monocyte Count 0.81 k/cumm (0.11-0.7); Absolute Neutrophil Count 3.53 k/cumm (1.2-6.7); Basophils % 0.2; Eosinophils % 1.1; HCT 40.1 % (40.0-50.0); HGB 13.9 g/dL (13.5-17.5); Immature Grans % 1.7 %; Lymphocytes % 15.6; Mean Corp. HGB Concentration 34.7 g/dL (32.0-36.0); Mean Corpuscular Hemoglobin 33.7 pg (27.0-33.0); Mean Corpuscular Volume 97.1 fL (80-95); Mean Platelet Volume 9.5 fL (8.0-11.0); Monocytes % 15.2; Neutrophils % 66.2; Platelet Count 208 x1000/uL (130-400); RBC 4.13 m/cumm (4.50-6.00); White Blood Cell Count 5.33 k/cumm (4.4-10.8)
[2019-07-11 08:36] LABS: ALT 82 U/L (16-63); AST 41 U/L (15-37); Albumin 3.3 g/dL (3.4-5.0); Alkaline Phosphatase 64 U/L (46-116); Anion Gap 12.2 mmol/L (3-11); BUN 9 mg/dL (7-18); Bilirubin, Total 1.2 mg/dL (0.2-1.0); CO2 20.8 mmol/L (21.0-32.0); CREATININE 0.69 mg/dL (0.70-1.30); Calcium 8.2 mg/dL (8.5-10.1); Chloride 99 mmol/L (98-107); Glucose 90 mg/dL (74-106); Potassium 3.6 mmol/L (3.5-5.1); Sodium 132 mmol/L (136-145); Total Protein 6.3 g/dL (6.4-8.2)
[2019-07-11] MEDS: Lactated Ringers 1,000 ML 80 ML IV (10:22)
--- NOTE | 2019-07-11 10:30 | STOM_PTH ---
PATIENT: Leonel Cantor LOC: [id number]#:[id number] AGE/SX: 58/M ROOM: RE07/10/[address]: Mirian Wetzel : 1960 BED: A DIS: 07/12/2019 SPEC #: [id number] RECD: 07/13/19 12:18 STATUS: PERFECTO REAlley #: [id number] NEFTALY: 07/11/19 10:[address]: Mirian Wetzel DEPT: Surgical Specimen RECD BY: Carrol Landin ENTERED: 07/13/19 12:19 SP TYPE: STOMACH OTHR DR: Jazzy Hyde, SAVANA Tissues: 1 - BIOPSY BOWEL 2 - STOMACH BIOPSY 3 - STOMACH BIOPSY 4 - STOMACH BIOPSY 5 - ESOPHAGUS BIOPSY 6 - ESOPHAGUS BIOPSY Procedures: GROSS AND MICRO LEVEL 4 Comments: [id number]
--- NOTE | 2019-07-11 10:53 | W.PM.OP ---
Date of service: 07/11/19 Time of Service: 10:53 Operative Note Operative Note DATE OF PROCEDURE: 07/11/19 PRE-OP DIAGNOSIS: epigastric/RUQ pain and intractible vomting POST-OP DIAGNOSIS: other (severe/punctate hemrrhoagic gastritis ) PROCEDURE: EGD w/ bx SURGEON: Mirian Wetzel ANESTHESIA: MAC ESTIMATED BLOOD LOSS: 1 PATHOLOGY: other COMPLICATIONS: None Patient was transported to: PACU Patient's condition: stable Procedure Description: After informed consent was obtained the patient was take to the procedure room and placed in a supine position. Monitors were applied and a time out was done. The patients name, date of , procedure type, allergies to medications and metal in their body was reviewed. A bite block was placed and the patient was sedated. Once sedated and comfortable the gastroscope was advanced through the oropharynx which was grossly normal into the esophagus. The proximal and mid-esophagus were nl. In the distal esophagus there was mild edema and irregularity to the muscosa. no erthyma. or ulceration. THere are no esophageal varices/hiatal hernia/diverticula or ulcers. The scope was advanced into the stomach and through the pylorus into the 3rd portion of the duodenum. The duodenum was noted to be nl. Biopsies were done . The scope was retracted back into the stomach and biopsies were done to rule out H. pylori. The mucosa of the entire stomach, but particularly the antrum and the cardia and the dependent portions show severe erthyma. There is pucntate areas of hemorrhage in the cardia. There is no overt ulcers. There is no active or old bleeding. The scope was retroflexed. There no a hiatal hernia noted. The scope was retracted back into the esophagus and biopsies were done of the GE junction to rule out Phelps's. The Z line was mildly irregular. The scope was removed and the patient was woken up and taken back to PACU in stable condition.
--- NOTE | 2019-07-11 11:04 | W.PM.PROGNOT ---
Date of Service Date of service: 07/11/19 Time of Service: 09:45 Assessment and Plan Assessment and plan (1) RUQ abdominal pain: Status: Acute Assessment and plan: -pt was given ativan -stable for procedure today Informed consent is obtained for the procedural (explained in simple layman's terms that the pt and/or family could understand) explaining risks vs benefits and alternatives to the procedure and consequences if we do not do the procedure and need/rational for the procedure. Risks include but are not limited to: bleeding, infection, perforation of esophagus, stomach, colon, small intestines, bronchus or trachea, or PTX. This would necessitate emergency surgery to repair the damage w/ possible ostomy; and other associated complications w/ the required surgery. Also complications of anesthesia including aspiration, NV/CVA/. hgb stable. no signs of active bleeding (2) Intractable nausea and vomiting: Status: Acute Subjective Subjective Patient reports: feels better Interval history since last seen: Pt is doing better no headaches. No CP or SOB. chronic smokers cough. no dysuria. no leg pain or swelling. c/o anxiety / panic attack about having to have a scope. stomach pain is a 4 today. the nausea has subsided. Overall he is doing better. Other than the anxiety about having the scope. Exam Narrative Exam Narrative: no headache. no visual changes no sore throat poor dentition. broken and loose teeth Eyes Sclera: sclerae normal Cornea: corneas normal Other: no eye pain or dicharge. no jauandice Resp Effort & Inspection: normal respiratory effort and able to speak in complete sentences Auscultation: clear to auscultation bilaterally (chronic smokers cough ) Cardio Rate: regular rate Rhythm: regular rhythm GI Inspection: normal to inspection and non-distended Palpation: soft, no hernias, no masses and No ascites Auscultation: normal bowel sounds Skin General skin exam: no rashes or lesions noted Extrem General: no clubbing, cyanosis or edema Objective Objective Clinical Data: Abnormal lab results 07/10/19 07/10/19 07/10/19 Range/Units 11:50 11:50 12:24 RBC (4.50-6.00) m/cumm MCV (80-95) fL MCH 33.3 H (27.0-33.0) pg Absolute Lymphocytes 1.09 L (1.2-3.4) k/cumm Absolute Monocytes 0.84 H (0.11-0.7) k/cumm PT 9.0 L (9.3-11.0) sec Sodium 132 L (136-145) mmol/L Chloride 94 L (98-107) mmol/L Carbon Dioxide (21.0-32.0) mmol/L Anion Gap (3-11) mmol/L Creatinine (0.70-1.30) mg/dL Calcium (8.5-10.1) mg/dL Total Bilirubin (0.2-1.0) mg/dL GGT (15-85) U/L AST 72 H (15-37) U/L ALT 122 H (16-63) U/L C-Reactive Protein (0.0-0.3) mg/dL Total Protein (6.4-8.2) g/dL Albumin (3.4-5.0) g/dL Urine Ketones (Negative) mg/dL Urine Urobilinogen (Up TO 0.2) EU/dL 07/10/19 07/10/19 07/11/19 Range/Units 13:15 13:25 07:25 RBC (4.50-6.00) m/cumm MCV (80-95) fL MCH (27.0-33.0) pg Absolute Lymphocytes (1.2-3.4) k/cumm Absolute Monocytes (0.11-0.7) k/cumm PT (9.3-11.0) sec Sodium 132 L (136-145) mmol/L Chloride (98-107) mmol/L Carbon Dioxide 20.8 L (21.0-32.0) mmol/L Anion Gap 12.2 H (3-11) mmol/L Creatinine 0.69 L (0.70-1.30) mg/dL Calcium 8.2 L (8.5-10.1) mg/dL Total Bilirubin 1.2 H (0.2-1.0) mg/dL GGT 179 H (15-85) U/L AST 41 H (15-37) U/L ALT 82 H (16-63) U/L C-Reactive Protein 0.77 H (0.0-0.3) mg/dL Total Protein 6.3 L (6.4-8.2) g/dL Albumin 3.3 L (3.4-5.0) g/dL Urine Ketones 15 H (Negative) mg/dL Urine Urobilinogen 1.0 H (Up TO 0.2) EU/dL 07/11/19 Range/Units 07:25 RBC 4.13 L (4.50-6.00) m/cumm MCV 97.1 H (80-95) fL MCH 33.7 H (27.0-33.0) pg Absolute Lymphocytes 0.83 L (1.2-3.4) k/cumm Absolute Monocytes 0.81 H (0.11-0.7) k/cumm PT (9.3-11.0) sec Sodium (136-145) mmol/L Chloride (98-107) mmol/L Carbon Dioxide (21.0-32.0) mmol/L Anion Gap (3-11) mmol/L Creatinine (0.70-1.30) mg/dL Calcium (8.5-10.1) mg/dL Total Bilirubin (0.2-1.0) mg/dL GGT (15-85) U/L AST (15-37) U/L ALT (16-63) U/L C-Reactive Protein (0.0-0.3) mg/dL Total Protein (6.4-8.2) g/dL Albumin (3.4-5.0) g/dL Urine Ketones (Negative) mg/dL Urine Urobilinogen (Up TO 0.2) EU/dL Vital Signs Temperature 36.6 C 07/11/19 07:41 Temperature Source Tympanic 07/11/19 07:41 Pulse 75 07/11/19 07:41 Pulse Rhythm Regular 07/11/19 07:53 Pulse 80 07/10/19 17:31 Respiratory Rate 18 07/11/19 07:41 Respiratory Effort Non-Labored 07/11/19 07:53 Respiratory Depth Normal 07/11/19 07:53 Respiratory Pattern Normal 07/11/19 07:53 Blood Pressure 167/100 H 07/11/19 07:41 Blood Pressure Mean 114 07/10/19 17:30 Pulse Oximetry 97 07/11/19 07:41 Oxygen Delivery Method Room Air 07/11/19 07:41 Oxygen Flow Rate 0 07/11/19 07:41 Pain Level 4 07/11/19 07:41 Comment 05/29/20 14:45 Intake & Output 07/10/19 07/10/19 07/11/19 11:59 23:59 11:59 Intake Total 2700.5 / 2700.5 1760 / 1760 Output Total 280 / 280 Balance 2420.5 / 2420.5 1760 / 1760 Weight 55.8 kg 55.8 kg Intake: IV 2350.5 / 2350.5 1310 / 1310 Oral 350 / 350 450 / 450 Output: Urine 280 / 280 Other: Urine Color Dark [place] Yellow Urine Appearance Clear Clear Urine Odor Normal Normal Comment Per patient rate. Stool Size Moderate Stool Characteristics Soft Liquid Voiding Methods Urinal Toilet Laboratory Results WBC 5.33 k/cumm (4.4-10.8) 07/11/19 07:25 RBC 4.13 m/cumm (4.50-6.00) L 07/11/19 07:25 Hgb 13.9 g/dL (13.5-17.5) 07/11/19 07:25 Hct 40.1 % (40.0-50.0) 07/11/19 07:25 MCV 97.1 fL (80-95) H 07/11/19 07:25 MCH 33.7 pg (27.0-33.0) H 07/11/19 07:25 MCHC 34.7 g/dL (32.0-36.0) 07/11/19 07:25 RDW 14.0 % (11.8-14.1) 07/11/19 07:25 Plt Count 208 x1000/uL (130-400) 07/11/19 07:25 MPV 9.5 fL (8.0-11.0) 07/11/19 07:25 Immature Gran % 1.7 % 07/11/19 07:25 Neutrophils % 66.2 07/11/19 07:25 Lymphocytes % 15.6 07/11/19 07:25 Monocytes % 15.2 07/11/19 07:25 Eosinophils % 1.1 07/11/19 07:25 Basophils % 0.2 07/11/19 07:25 Absolute Neutrophils 3.53 k/cumm (1.2-6.7) 07/11/19 07:25 Absolute Lymphocytes 0.83 k/cumm (1.2-3.4) L 07/11/19 07:25 Absolute Monocytes 0.81 k/cumm (0.11-0.7) H 07/11/19 07:25 Absolute Eosinophils 0.06 k/cumm (0.0-0.7) 07/11/19 07:25 Absolute Basophils 0.01 k/cumm (0.0-0.2) 07/11/19 07:25 PT 9.0 sec (9.3-11.0) L 07/10/19 11:50 INR 0.9 (0.9-1.1) 07/10/19 11:50 Sodium 132 mmol/L (136-145) L 07/11/19 07:25 Potassium 3.6 mmol/L (3.5-5.1) 07/11/19 07:25 Chloride 99 mmol/L (98-107) 07/11/19 07:25 Carbon Dioxide 20.8 mmol/L (21.0-32.0) L 07/11/19 07:25 Anion Gap 12.2 mmol/L (3-11) H 07/11/19 07:25 BUN 9 mg/dL (7-18) 07/11/19 07:25 Creatinine 0.69 mg/dL (0.70-1.30) L 07/11/19 07:25 Estimated GFR/1.73 m2 >= 60.00 (mL/min/1.73m2) 07/11/19 07:25 Glucose 90 mg/dL (74-106) 07/11/19 07:25 Lactate 1.3 mmol/L (0.6-1.4) 07/10/19 13:25 Calcium 8.2 mg/dL (8.5-10.1) L 07/11/19 07:25 Magnesium 2.0 mg/dL (1.8-2.4) 07/11/19 07:25 Total Bilirubin 1.2 mg/dL (0.2-1.0) H 07/11/19 07:25 GGT 179 U/L (15-85) H 07/10/19 13:25 AST 41 U/L (15-37) H 07/11/19 07:25 ALT 82 U/L (16-63) H 07/11/19 07:25 Alkaline Phosphatase 64 U/L (46-116) 07/11/19 07:25 C-Reactive Protein 0.77 mg/dL (0.0-0.3) H 07/10/19 13:25 Total Protein 6.3 g/dL (6.4-8.2) L 07/11/19 07:25 Albumin 3.3 g/dL (3.4-5.0) L 07/11/19 07:25 Lipase 141 U/L (73-393) 07/10/19 11:50 Urine Color Yellow (Yellow) 07/10/19 13:15 Urine Clarity Clear (Clear) 07/10/19 13:15 Urine pH 7.0 (5-8) 07/10/19 13:15 Ur Specific [place] 1.020 (1.005-1.025) 07/10/19 13:15 Urine Protein Negative mg/dL (Negative) 07/10/19 13:15 Urine Ketones 15 mg/dL (Negative) H 07/10/19 13:15 Urine Blood Negative (Negative) 07/10/19 13:15 Urine Nitrite Negative (Negative) 07/10/19 13:15 Urine Bilirubin Negative (Negative) 07/10/19 13:15 Urine Urobilinogen 1.0 EU/dL (Up TO 0.2) H 07/10/19 13:15 Ur Leukocyte Esterase Negative (Negative) 07/10/19 13:15 Urine Glucose Negative mg/dL (Negative) 07/10/19 13:15 Ethyl Alcohol 4.6 mg/dL (<3) 07/10/19 11:50 COVID-19 PCR Cancelled 07/10/19 16:58 Nasopharyn COVID-19 PCR Cancelled 07/10/19 16:58 Ref Test Perform Site Cancelled 07/10/19 16:58
[2019-07-11] MEDS: Sucralfate 1 GM TAB PO ×3 (12:23→21:09)
--- NOTE | 2019-07-11 13:18 | PDOC.CMIN ---
- If Service Date Differs Date of service: 07/11/19 Time of Service: 17:40 Care Management Initial Assess REASON FOR HOSPITALIZATION:: Intractable N/V, Gallbladder PAST MEDICAL HISTORY/PAST SURGICAL HISTORY:: Abnormal LFTs, alcohol use disorder, anxiety, diverticulosis of large intestine without hemorrage, duodenitis, hemorrhoids, hypertension, insomnia due to anxiety and fear, intractable nausea and vomiting, palpitations, RUQ abdominal pain, upper GI hemorrhage PREVIOUS FUNCTIONAL STATUS/SOCIAL/FAMILY SUPPORTS:: Leonel reports residing in [place] with his , Helga. He reports being on disability from [employer]. He states his works two jobs, at [employer] and at [employer]. He reports being otherwise independent in the community. CURRENT FUNCTIONAL STATUS:: Leonel is sitting up in bed, reports feeling hungry. He shares he just returned from EGD and is awaiting news. Leonel shares that he was down in this area seeing his PCP and was sent to [facility] for care. ADVANCE DIRECTIVES:: None on file. Has patient been provided with information about the portal?: No Did the patient sign up for the portal?: No CODE STATUS:: Full Code INSURANCE COVERAGE / FINANCIAL ISSUES:: BC/BS CURRENT HOME/COMMUNITY SERVICES/EQUIPMENT:: Disability PRIMARY CARE PHYSICIAN:: Jazzy Hyde POTENTIAL DISCHARGE NEEDS:: Follow up appointments with PCP and surgical services. PATIENT/FAMILY EDUCATION NEEDS:: Review discharge instructions, discuss Ask Me Three. ANTICIPATED BARRIERS TO DISCHARGE:: None identified. TRANSPORTATION:: Via private vehicle with his , Helga. PLAN:: Leonel will return home when ready per MD. He will follow up with surgical services, his PCP, and plan of care as prescribed. He will transport via private vehicle with his , Helga.
--- NOTE | 2019-07-11 13:27 | PHACLINREV_ITS ---
Pharmacy Admission Review - Admission Clinical Review (Last Updated 07/10/19 @ 20:54 by Mirian Wetzel DO) RUQ abdominal pain (Acute) Hypertension (Acute) Intractable nausea and vomiting (Acute) Nausea & vomiting (Acute) Chronic back pain (Acute) Duodenitis (Acute) No Known Allergies Allergy (Unverified 07/10/19 11:53) Height 5 ft 9 in Weight 55.8 kg - Renal Dosing Renal Dosing: BUN 9 mg/dL (7-18) 07/11/19 07:25 Creatinine 0.69 mg/dL (0.70-1.30) L 07/11/19 07:25 Medications needing adjustments: Reviewed (Crcl ~77 mL/min current meds okay) - Anticoagulation Anticoagulation: Hgb 13.9 g/dL (13.5-17.5) 07/11/19 07:25 Hct 40.1 % (40.0-50.0) 07/11/19 07:25 Plt Count 208 x1000/uL (130-400) 07/11/19 07:25 INR 0.9 (0.9-1.1) 07/10/19 11:50 Creatinine 0.69 mg/dL (0.70-1.30) L 07/11/19 07:25 DVT Prohphylaxis: Reviewed (MD aware, pt moving and has SCDs ordered) - Opiate Usage Evaluate Pain Scale/Pains Meds: N/A - Relevant Labs Sodium 132 mmol/L (136-145) L 07/11/19 07:25 Potassium 3.6 mmol/L (3.5-5.1) 07/11/19 07:25 Chloride 99 mmol/L (98-107) 07/11/19 07:25 Magnesium 2.0 mg/dL (1.8-2.4) 07/11/19 07:25 C-Reactive Protein 0.77 mg/dL (0.0-0.3) H 07/10/19 13:25 Electrolytes, C-Reactive P, ESR: Reviewed - DM Control DM Control: Glucose 90 mg/dL (74-106) 07/11/19 07:25 Insulin Dosing: N/A - Heart Failure/SC EF%, LAKSHMI's, B-Blockers, Diuretics: N/A - BP Control BP Control: Blood Pressure 167/100 Blood Pressure 156/106 If elevated: Reviewed (MD aware, pt not on any meds for BP at home) - Qtc Review If Elevated: N/A - IV to PO Switch IV Medications: N/A - Home Meds Home Med List reviewed: Reviewed (multivitamins may increase the serum con centration of sucralfate and aluminum hydroxide; consider avoiding combination/ admin and monitor for signs/symptoms of aluminum-related toxicities.) Relevent Home Meds Not ordered & why?: aluminum-mag hydroxide-simethicone, ibuprofen, lidocaine, melatonin, multivitamin, miralax - Current meds Current Medication Order Review: Intervened (discontinued DI meds, talked to MD about pantoprazole drip (only 1 dose had been given)) - Comments Comments/Follow Ups: Watch VS, labs, and for med changes Antibiotic Activity - Pharmacy Antibiotic Review Pharmacy Antibiotic Activity: D/C antibiotic
[2019-07-11 15:32] VITALS: BP 158/104; PULSE 75; RESP 18; TEMP 36.7; O2SAT 97
[2019-07-11] MEDS: diphenhydrAMINE 25 MG CAP 50 MG PO (16:56)
[2019-07-11 19:34] VITALS: BP 152/97; PULSE 79; RESP 18; TEMP 36.7; O2SAT 97
[2019-07-11] MEDS: Pantoprazole 40 MG VIAL IVP (19:57)
[2019-07-11] MEDS: Normal Saline Flush 10 ML SYR IVP ×2 (19:58→21:41)
[2019-07-11] MEDS: Propranolol 20 MG TAB PO (20:08)
[2019-07-11] MEDS: ACETAMINOPHEN 1,000 MG/100 ML BTL 400 MG IVPB (20:22)
[2019-07-12 04:39] VITALS: BP 166/106; PULSE 72; RESP 18; TEMP 36.2; O2SAT 98
[2019-07-12] MEDS: Lactobacillus Acidophilus CAP 1 CAP PO (04:55)
[2019-07-12] MEDS: LORazepam 1 MG TAB PO/SL ×3 (06:14→14:07)
[2019-07-12] MEDS: Normal Saline Flush 10 ML SYR IVP ×2 (06:54→08:14)
[2019-07-12] MEDS: Ondansetron 4 MG/2 ML VIAL IVP (06:54)
[2019-07-12 07:20] VITALS: BP 161/98; PULSE 66; RESP 17; TEMP 36; O2SAT 95
[2019-07-12 07:26] LABS: ALT 77 U/L (16-63); AST 39 U/L (15-37); Albumin 3.4 g/dL (3.4-5.0); Alkaline Phosphatase 65 U/L (46-116); Anion Gap 8.1 mmol/L (3-11); BUN 5 mg/dL (7-18); Bilirubin, Total 0.8 mg/dL (0.2-1.0); CO2 24.9 mmol/L (21.0-32.0); CREATININE 0.86 mg/dL (0.70-1.30); Calcium 8.8 mg/dL (8.5-10.1); Chloride 96 mmol/L (98-107); Glucose 121 mg/dL (74-106); Sodium 129 mmol/L (136-145); Total Protein 6.5 g/dL (6.4-8.2)
[2019-07-12] MEDS: Sucralfate 1 GM TAB PO ×2 (07:29→11:21)
[2019-07-12] MEDS: Pantoprazole 40 MG VIAL IVP (08:14)
[2019-07-12] MEDS: Propranolol 20 MG TAB PO (08:14)
--- NOTE | 2019-07-12 11:10 | W.PM.PROGNOT ---
Date of Service Date of service: 07/12/19 Time of Service: 11:11 Assessment and Plan Assessment and plan (1) Acute hemorrhagic gastritis: Status: Acute Assessment and plan: hgb stable feeling better on carafate and protonix I did w/w him importance of avoiding ETOH. He needs to make a commtment to this- otherwise he is going to continue to have problems w/ his stomach. Continue with lifestyle modifications: no alcohol, tobacco products, Aspirin or NSAID's (ibuprofen, Motrin, Naprosyn, aleve, etc), soda pop/any carbonated beverages, caffeine (including tea & chocolate), and acidic foods, (tomatoes, citrus, onions, peppermints) spicy foods. Do not lie down for 30 minutes after eating, and do not eat 2 hours prior to bedtime. Avoid wearing tight fitting clothing/ belts F/u w/ PCP. plan on d/c today home on carafate/protonix and metoprolol, adn lifestyle changes. He needs to stop driking for his stomach and for his liver. (2) Alcohol withdrawal delirium, acute, hyperactive: Status: Acute Subjective Subjective Interval history since last seen: no headaches. No CP or SOB. no productive cough. no dysuria. no leg pain or swelling. pt c/o that is his anxiety is terrible and we are not doing enough for this. He couldn't eat this morning. He says his stomach hurts and his nauseated. Nursing reports that he had no nausea or vomiting overnight. He did have a BM that was formed and brown. No blood. His BM is still slightly up on 20mg propranolol and will increase in 40mg. He is getting max ativan dosing. Pt normally uses ETOH for his anxiety, and is not on any medications. He is most liekly going through some w/drawl at this point. Exam HENMT Other: poor dentition Resp Effort & Inspection: normal respiratory effort and able to speak in complete sentences Auscultation: clear to auscultation bilaterally Cardio Rate: regular rate Rhythm: regular rhythm Other: <del>no</del> <del>tachycardia.</del> <del>BP</del> <del>mildly</del> <del>elevated</del> GI Inspection: normal to inspection Palpation: soft Other: minimal pain. nausea is better. able to tolerate diet per RN's. Objective Objective Clinical Data: Abnormal lab results 07/12/19 Range/Units 06:35 Sodium 129 L (136-145) mmol/L Chloride 96 L (98-107) mmol/L BUN 5 L (7-18) mg/dL Glucose 121 H (74-106) mg/dL AST 39 H (15-37) U/L ALT 77 H (16-63) U/L Vital Signs Temperature 36 C L 07/12/19 07:20 Temperature Source Tympanic 07/12/19 07:20 Pulse 66 07/12/19 07:20 Pulse Rhythm Regular 07/12/19 09:03 Pulse 80 07/10/19 17:31 Respiratory Rate 17 07/12/19 07:20 Respiratory Effort Non-Labored 07/12/19 09:03 Respiratory Depth Normal 07/12/19 09:03 Respiratory Pattern Normal 07/12/19 09:03 Blood Pressure 161/98 H 07/12/19 07:20 Blood Pressure Mean 114 07/10/19 17:30 Pulse Oximetry 95 07/12/19 07:20 Oxygen Delivery Method Room Air 07/12/19 07:20 Oxygen Flow Rate 0 07/12/19 07:20 Pain Level 2 07/12/19 07:20 Comment 07/10/19 14:45 Intake & Output 07/11/19 07/11/19 07/12/19 11:59 23:59 11:59 Intake Total 1810 / 4536.667 2726.667 / 4536.667 Output Total 600 / 600 Balance 1810 / 3936.667 2126.667 / 3936.667 Intake: IV 1360 / 2826.667 1466.667 / 2826.667 Oral 450 / 1710 1260 / 1710 Output: Urine 600 / 600 Other: Urine Color Yellow Yellow Yellow Urine Appearance Clear Clear Clear Urine Odor Normal Normal Normal Comment Per patient rate. pt denies any urinary issues Stool Size Moderate Moderate Moderate Stool Characteristics Soft Soft Soft Liquid Voiding Methods Toilet Toilet Toilet Laboratory Results WBC 5.33 k/cumm (4.4-10.8) 07/11/19 07:25 RBC 4.13 m/cumm (4.50-6.00) L 07/11/19 07:25 Hgb 13.9 g/dL (13.5-17.5) 07/11/19 07:25 Hct 40.1 % (40.0-50.0) 07/11/19 07:25 MCV 97.1 fL (80-95) H 07/11/19 07:25 MCH 33.7 pg (27.0-33.0) H 07/11/19 07:25 MCHC 34.7 g/dL (32.0-36.0) 07/11/19 07:25 RDW 14.0 % (11.8-14.1) 07/11/19 07:25 Plt Count 208 x1000/uL (130-400) 07/11/19 07:25 MPV 9.5 fL (8.0-11.0) 07/11/19 07:25 Immature Gran % 1.7 % 07/11/19 07:25 Neutrophils % 66.2 07/11/19 07:25 Lymphocytes % 15.6 07/11/19 07:25 Monocytes % 15.2 07/11/19 07:25 Eosinophils % 1.1 07/11/19 07:25 Basophils % 0.2 07/11/19 07:25 Absolute Neutrophils 3.53 k/cumm (1.2-6.7) 07/11/19 07:25 Absolute Lymphocytes 0.83 k/cumm (1.2-3.4) L 07/11/19 07:25 Absolute Monocytes 0.81 k/cumm (0.11-0.7) H 07/11/19 07:25 Absolute Eosinophils 0.06 k/cumm (0.0-0.7) 07/11/19 07:25 Absolute Basophils 0.01 k/cumm (0.0-0.2) 07/11/19 07:25 PT 9.0 sec (9.3-11.0) L 07/10/19 11:50 INR 0.9 (0.9-1.1) 07/10/19 11:50 Sodium 129 mmol/L (136-145) L 07/12/19 06:35 Potassium 4.0 mmol/L (3.5-5.1) 07/12/19 06:35 Chloride 96 mmol/L (98-107) L 07/12/19 06:35 Carbon Dioxide 24.9 mmol/L (21.0-32.0) 07/12/19 06:35 Anion Gap 8.1 mmol/L (3-11) 07/12/19 06:35 BUN 5 mg/dL (7-18) L 07/12/19 06:35 Creatinine 0.86 mg/dL (0.70-1.30) 07/12/19 06:35 Estimated GFR/1.73 m2 >= 60.00 (mL/min/1.73m2) 07/12/19 06:35 Glucose 121 mg/dL (74-106) H 07/12/19 06:35 Lactate 1.3 mmol/L (0.6-1.4) 07/10/19 13:25 Calcium 8.8 mg/dL (8.5-10.1) 07/12/19 06:35 Magnesium 2.0 mg/dL (1.8-2.4) 07/11/19 07:25 Total Bilirubin 0.8 mg/dL (0.2-1.0) 07/12/19 06:35 GGT 179 U/L (15-85) H 07/10/19 13:25 AST 39 U/L (15-37) H 07/12/19 06:35 ALT 77 U/L (16-63) H 07/12/19 06:35 Alkaline Phosphatase 65 U/L (46-116) 07/12/19 06:35 C-Reactive Protein 0.77 mg/dL (0.0-0.3) H 07/10/19 13:25 Total Protein 6.5 g/dL (6.4-8.2) 07/12/19 06:35 Albumin 3.4 g/dL (3.4-5.0) 07/12/19 06:35 Lipase 141 U/L (73-393) 07/10/19 11:50 Urine Color Yellow (Yellow) 07/10/19 13:15 Urine Clarity Clear (Clear) 07/10/19 13:15 Urine pH 7.0 (5-8) 07/10/19 13:15 Ur Specific [place] 1.020 (1.005-1.025) 07/10/19 13:15 Urine Protein Negative mg/dL (Negative) 07/10/19 13:15 Urine Ketones 15 mg/dL (Negative) H 07/10/19 13:15 Urine Blood Negative (Negative) 07/10/19 13:15 Urine Nitrite Negative (Negative) 07/10/19 13:15 Urine Bilirubin Negative (Negative) 07/10/19 13:15 Urine Urobilinogen 1.0 EU/dL (Up TO 0.2) H 07/10/19 13:15 Ur Leukocyte Esterase Negative (Negative) 07/10/19 13:15 Urine Glucose Negative mg/dL (Negative) 07/10/19 13:15 Ethyl Alcohol 4.6 mg/dL (<3) 07/10/19 11:50 COVID-19 PCR Cancelled 07/10/19 16:58 Nasopharyn COVID-19 PCR Cancelled 07/10/19 16:58 Ref Test Perform Site Cancelled 07/10/19 16:58
[2019-07-12] MEDS: LORazepam 1 MG TAB PO (11:21)
[2019-07-12] MEDS: LORazepam 2 MG/ML VIAL 1 MG IVP (11:21)
--- NOTE | 2019-07-12 14:13 | DSE_ITS ---
DS: Diagnosis Discharge Diagnosis (1) Acute hemorrhagic gastritis: Status: Acute (2) Alcohol withdrawal delirium, acute, hyperactive: Status: Acute Discharge Plan Disposition Patient Disposition: HOME Condition: Stable Discharge Details Chief Complaint: Abd Prob Clinical Impression: Nausea & vomiting Reason For Visit: INTRACTABLE N/V. hemorrhagic gastritis Admit Date/Time: 07/10/19 16:41 Admit Provider: Mirian Wetzel Attending Provider: Mirian Wetzel Primary Care Provider: Jazzy Hyde ED Provider: Elly Gomez Home Meds and New Rx's Prescriptions: New sucralfate 1 gram tablet 1 gm PO QACHS Qty: 120 RF: 12 propranolol 40 mg tablet 40 mg PO BID Qty: 60 RF: 12 Continued pantoprazole 40 mg tablet,delayed release (DR/EC) 40 mg PO BID RF: 0 sucralfate 1 gram tablet 1 gm PO BID RF: 0 polyethylene glycol 3350 [Miralax] 17 gram/dose powder 17 gm PO DAILY PRN (Reason: constipation) Qty: 119 RF: 0 acetaminophen 500 mg tablet 500 - 1,000 mg PO TID PRN (Reason: pain) Qty: 90 RF: 0 lidocaine 5 % adhesive patch,medicated 1 patch TP .q 12 h PRN (Reason: back pain) Qty: 10 RF: 0 methocarbamol 500 mg tablet 500 mg PO HS PRN (Reason: muscle spasm) Qty: 60 RF: 1 melatonin 3 MG tablet 3 mg PO HS RF: 0 multivitamin tablet 1 tab PO DAILY RF: 0 Discontinued ondansetron 4 mg tablet,disintegrating 4 mg PO .Q4-6H PRN (Reason: nausea and vomiting) Qty: 60 RF: 0 ibuprofen 800 mg tablet 800 mg PO TID PRN (Reason: pain) RF: 0 alum-mag hydroxide-simeth 200-200-20 mg/5 mL suspension 10 ml PO Q6H PRNRF: 0 Discharge Instructions Instructions: Diet for Stomach Ulcers and Gastritis (GEN) Additional Instructions: Stop drinking alcohol. If you do not stop now, your life expectancy is less than two years. If you stop drinking now, your body can heal itself. -take carafate 30 mins before every meal and at bedtime. -no aspirin/aleve/ibuprofen -Continue with lifestyle modifications: no alcohol, tobacco products, Aspirin or NSAID's (ibuprofen, Motrin, Naprosyn, aleve, etc), soda pop/any carbonated beverages, caffeine (including tea & chocolate), and acidic foods, (tomatoes, citrus, onions, peppermints) spicy foods. Do not lie down for 30 minutes after eating, and do not eat 2 hours prior to bedtime. Avoid wearing tight fitting clothing/ belts -F/u with PCP on Saturday or Saturday. STOP drinking alcohol Activity:: Activity as Tolerated Equipment/Supplies:: No Equipment Needed Diet:: bland Discharge Orders Discharge Orders: Discharge Order (Routine); Ordered 07/12/19 Ordered By: Mirian Wetzel DS: Summary Status at Discharge Functional status at discharge: independent ambulation Overall status at discharge: patient is back to baseline Mental Status: mental status grossly normal Speech and Movement: speech and movement normal Mood: anxious mood Affect: anxious affect Exam Psych Mental Status: mental status grossly normal Speech and Movement: speech and movement normal Mood: anxious mood Affect: anxious affect DS: Data Vitals/I&O Vitals and I&O: Vital Signs Temperature 36 C L 07/12/19 07:20 Temperature Source Tympanic 07/12/19 07:20 Pulse 66 07/12/19 07:20 Pulse Rhythm Regular 07/12/19 09:03 Pulse 80 07/10/19 17:31 Respiratory Rate 17 07/12/19 07:20 Respiratory Effort Non-Labored 07/12/19 09:03 Respiratory Depth Normal 07/12/19 09:03 Respiratory Pattern Normal 07/12/19 09:03 Blood Pressure 161/98 H 07/12/19 07:20 Blood Pressure Mean 114 07/10/19 17:30 Pulse Oximetry 95 07/12/19 07:20 Oxygen Delivery Method Room Air 07/12/19 07:20 Oxygen Flow Rate 0 07/12/19 07:20 Pain Level 2 07/12/19 07:20 Comment 07/10/19 14:45 Intake & Output 07/11/19 07/12/19 07/12/19 23:59 11:59 23:59 Intake Total 2726.667 / 4536.667 Output Total 600 / 600 Balance 2126.667 / 3936.667 Intake: IV 1466.667 / 2826.667 Oral 1260 / 1710 Output: Urine 600 / 600 Other: Urine Color Yellow Yellow Urine Appearance Clear Clear Urine Odor Normal Normal Comment pt denies any urinary issues Stool Size Moderate Moderate Stool Characteristics Soft Soft Voiding Methods Toilet Toilet Data Completed and Pending Labs on day of discharge: Labs from last 24 hours 07/12/19 06:35 Sodium 129 L Potassium 4.0 Chloride 96 L Carbon Dioxide 24.9 Anion Gap 8.1 BUN 5 L Creatinine 0.86 Estimated GFR/1.73 m2 >= 60.00 Glucose 121 H Calcium 8.8 Total Bilirubin 0.8 AST 39 H ALT 77 H Alkaline Phosphatase 65 Total Protein 6.5 Albumin 3.4 [facility] Medical History (Updated 07/12/19 @ 13:45 by Mirian Wetzel DO) Abnormal LFTs (Inactive 04/27/15) Acute hemorrhagic gastritis (Acute) Alcohol use disorder (Chronic) Alcohol withdrawal delirium, acute, hyperactive (Acute) Anxiety (Chronic 01/26/13) With sleep disruption Remeron effective management Diverticulosis of large intestine without hemorrhage (Chronic 04/27/15) Duodenitis (Acute) 02/22/2018 EGD: duodenitis and 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 Hemorrhoids (Resolved 01/26/13) Hemorrhoidectomy 11/2012 [facility] Hypertension (Acute) 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) Intractable nausea and vomiting (Acute) Palpitation (Resolved) RUQ abdominal pain (Acute) Upper GI hemorrhage (Acute) 02/2018 [facility] admission; 02/22/2018 EGD (Kwabena Bucio MD/Surgeon) showing duodenitis with changes concerning for possible malignancy Family History Father , From prostate CA Prostate cancer Social History Smoking/Tobacco Use Status: Never Alcohol Intake: current Alcohol Intake frequency: 3 or more drinks per day Alcohol type: beer Details: Rehab, August 2017, trying to quit Drug use: Daily Substance use type: marijuana Details: states usually has 8 beers a day couple beers last night - none today 1 hit of marijuana today Caregiver/Support person: No Household members: spouse Housing: house Number of Children: 0 Communication Needs: Hard of Hearing 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
--- NOTE | 2019-07-12 18:12 | PDOC.CMDIS ---
LACE Index Scoring Tool - Questions: Length of Stay (in days): 2 Acuity (Admit via E.D.?): Yes E.D. Visits: 1 - Answers: Total Score: 6 Risk of Readmission: Low Risk Care Management Discharge Reason for Hospitalization: Intractable N/V, Gallbladder Discharge Plan: Leonel will return home when ready per MD. He will follow up with surgical services, his PCP, and plan of care as prescribed. He will transport via private vehicle with his , Helga. Patient/Family Education Needs: Review discharge instructions, discuss Ask Me Three.
== END 2019-07-12 14:50 | disposition home or self-care (01) | DRG 378 ==
LOC: ER 16:30 → MS 18:53
PROVIDERS: Physician Assistant; Admitting Provider Surgery; Emergency Provider Registered Nurse Emergency; PCP Nurse Practitioner Family; Visit Provider Surgery
PROC: 0DJ68ZZ Inspection of Stomach, Via Natural or Artificial Opening Endoscopic (ICD-10-PCS; CPT 43235; principal; 2019-07-11 10:00)
DX: K29.01 Acute gastritis with bleeding (principal); F10.231 Alcohol dependence with withdrawal delirium; K29.80 Duodenitis without bleeding; R10.11 Right upper quadrant pain; R11.2 Nausea with vomiting, unspecified; F41.8 Other specified anxiety disorders; G89.29 Other chronic pain; M54.9 Dorsalgia, unspecified; K21.0 Gastro-esophageal reflux disease with esophagitis; I10 Essential (primary) hypertension
CPT/HCPCS: 43239; 36415; 80053; 83690; 88305; 96361; 96365; 96366; 96375; 99222; 99232; 99239; 99285; NC; U0003; 74177; 76700; 80320; 81003; 82977; 83605; 83735; 85025; 85610; 86140; J0131; J0696; J0780; J1200; J2060; J2405; J3490

== ENCOUNTER 2020-01-11 01:35 | Outpatient (CLI) | payer OTHER, SELFPAY ==
--- NOTE | 2020-01-11 11:21 | DI.MRI_ITS ---
EXAM: MR LUMBAR SPINE WO CLINICAL HISTORY: BACK/RT LEG PAIN,WORSENING, H/O HNP,M54.10,RADICULAR PAIN RLE. TECHNIQUE: Multiplanar multisequence MRI was performed. COMPARISON: MR MR LUMBAR SPINE WO from 01/30/2019 FINDINGS: Conus medullaris is at T12-L1 level. There is no evidence of conus mass nor subjacent clumping of th e intrathecal nerve roots to suggest arachnoiditis. The distal thecal sac appears unremarkable. The re is no evidence of Tarlov intra sacral cyst no other significant findings within the sacral canal. There is no evidence of fracture nor listhesis. Is nonacute a superior endplate indentation of L1 i s unchanged and not associated with bone edema. No osseous lesions. With respect to the individual level; T12-L1: No disc herniation or central canal stenosis. No foraminal stenosis. No facet arthropathy. There is an abnormal retrocrural density just anterior to the L1 vertebral body which measures 2.5 c entimetres cephalocaudal by 1.5 centimeter AP x 1.0 centimetres wide, similar to previous. Possibly significant. There is no bone lesion at this level. L1-2: Increase signal in the posterior annulus but no discrete focal disc herniation. Central canal dimensions are lower normal. There is no foraminal stenosis at this level. No significant facet art hropathy. L2-3: There are anterior osteophytes. Relatively preserved disc height. Mild annular bulging but wi thout a dominant disc herniation. Central canal dimensions are lower normal. No 5 foraminal stenosi s. No facet arthropathy. L3-4: Normal disc height and signal. There is a lateral left disc protrusion in the floor of the exi ting left neural foramen which is unchanged from previous. There is no significant foraminal stenosi s on this side. Central canal dimensions are with lower normal. No foraminal stenosis on the right side. No significant facet arthropathy. L4-5: Mildly decreased disc height. There is also a lateral left annular bulge at the level of the e xiting left neural foramen accompanied by osteophytes at this level. There is mild left-sided forami nal stenosis. No foraminal stenosis on the opposite-right side. Central canal dimensions are lower normal. No significant facet arthropathy. L5-S1: Mildly decreased disc height,. Amount of disc space height loss is more on the right side and this results in an element of vertical foraminal stenosis. Less so on the opposite-left side. Cent ral canal dimensions are lower normal there is again noted a posterolateral right disc protrusion L5- S1 which exhibits minimal for any significant change compared to the prior study. Some degenerative changes seen in the right facet joint at this level which is developmentally variant more AP orientat ed than the other oblique the orientated facet joints including the left facet joint at this level. IMPRESSION: L4-5 and L5-S1 findings as described above with minimal if any significant change when compared to th e prior MRI scan of January 2019. Superior endplate compression fracture of L1 is also unchanged and without bone edema to suggest acut e nor subacute component. There is a small fluid collection anterior to the L1 vertebral body which measures 25 x 15 x 10 anna meters, exhibiting very little change compared to prior study. This is retrocrural. If clinically i ndicated follow-up CT scan through this region can be performed. DATA REPOSITORY:
== END 2020-01-11 01:55 ==
PROVIDERS: PCP Nurse Practitioner Family; Visit Provider Physician Assistant Medical
DX: M48.061 Spinal stenosis, lumbar region without neurogenic claudication (principal); M51.16 Intervertebral disc disorders with radiculopathy, lumbar region; S32.010A Wedge compression fracture of first lumbar vertebra, initial encounter for closed fracture
CPT/HCPCS: 72148

== ENCOUNTER 2020-03-14 02:23 | Outpatient (CLI) | payer OTHER, SELFPAY ==
[2020-03-14 10:20] LABS: Absolute Basophil Count 0.02 10^3/uL (0.0-0.2); Absolute Eosinophil Count 0.05 10^3/uL (0.0-0.7); Absolute Lymphocyte Count 2.82 10^3/uL (1.2-3.4); Absolute Monocyte Count 0.79 10^3/uL (0.1-0.8); Basophils % 0.3; Eosinophils % 0.8; HGB 14.7 g/dL (13.5-17.5); Immature Grans % 1.6; Lymphocytes % 44.2; MCH 32.6 pg (27.0-33.0); MCHC 34.2 % (32.0-36.0); MCV 95.3 fL (80-95); MPV 8.9 fL (8.0-11.0); Monocytes % 12.4; Neutrophils % 40.7; Nucleated RBC 0 %; Platelet Count 270 10^3/uL (130-400); RBC 4.51 10^6/uL (4.36-5.78); RDW 13.1 % (11.8-14.1); RDW-SD 45.9 fL; WBC 6.38 10^3/uL (4.4-10.8)
[2020-03-14 10:43] LABS: ALT 97 U/L (16-63); AST 54 U/L (15-37); Alkaline Phosphatase 85 U/L (46-116); Anion Gap 9.1 mmol/L (3-11); BUN 4 mg/dL (7-18); Bilirubin, Total 0.6 mg/dL (0.2-1.0); CO2 24.9 mmol/L (21.0-32.0); CREATININE 0.6 mg/dL (0.70-1.30); Calcium 8.8 mg/dL (8.5-10.1); Chloride 95 mmol/L (98-107); Ferritin 184 ng/mL (26-388); Glucose 86 mg/dL (74-106); Potassium 4.4 mmol/L (3.5-5.1); Sodium 129 mmol/L (136-145); Total Protein 7.6 g/dL (6.4-8.2)
--- NOTE | 2020-03-14 11:10 | DI.CT_ITS ---
EXAM: CT ABDOMEN W CLINICAL HISTORY: L1 RETROPERITONEAL LESION SEEN ON MRI,R18.8 TECHNIQUE: Imaging Protocol: Axial computed tomography images with coronal and sagittal reformatted images were created and reviewed CONTRAST MATERIAL: Intravenous: Omnipaque 350 Contrast volume:85 mL Oral: Yes COMPARISON: MR MR LUMBAR SPINE WO from 01/30/[address] ABDOMEN PELVIS W from 07/10/2019 MR MR LUMBAR SPINE WO from 01/11/2020 FINDINGS: The examination is limited due to patient motion artifact. ABDOMEN: Lung Bases: Dependent atelectasis or scarring is seen in the lung bases. Liver: Normal density. No measurable mass. There is a calcification in the liver consistent with prio r granulomatous disease. Portal, Superior Mesenteric, and Splenic Veins: Unremarkable. Gallbladder and Biliary Tract: No radiodense calculus or dilation. Pancreas: Normal density, no abnormal calcifications or inflammatory process. Spleen: Calcifications are seen in the spleen consistent with prior granulomatous disease. Adrenals: There is a stable 2.2 x 2.8 cm left adrenal mass. This may reflect an adenoma. The right adrenal gland is unremarkable. Kidneys: Normal size, contour and axis. There is a nonobstructing 2 mm right renal calculus. There i s a nonobstructing 1 mm left renal calculus. No masses seen. Abdominal Aorta: Abdominal portion non-dilated. Mild atherosclerosis. Bowel: No obstruction or bowel wall thickening. Appendix is unremarkable. Peritoneal Cavity: No ascites, collection or mesenteric inflammatory response. Lymph Nodes: Within normal limits. Bones: Degenerative changes. Soft Tissues: The fluid attenuation right retrocrural lesion is unchanged compared to the CT scan fro m 07/10/2019 or the MRI examination from 01/30/2019. There is no involvement of the adjacent carmelita, ve rtebral body or aorta. IMPRESSION: 1. Stable fluid attenuation right retrocrural lesion. It exerts no mass effect or involvement on the surrounding soft tissues. This may represent a small cyst or lymph node or other benign lesion. 2. Stable left adrenal mass. This may represent an adenoma. 3. Findings of prior granulomatous disease. RADIATION DOSE DELIVERED: 359.47mGy.cm Total DLP DATA REPOSITORY: All CT scans at this facility are submitted to the National Radiology Data Registry (NRDR) Dose Index Registry (DIR) with the [employer] (ACR). RADIATION OPTIMIZATION: All CT scans at this facility use at least one of these dose optimization te chniques: automated exposure control; mA and/or kV adjustment per patient size (includes targeted exa ms where dose is matched to clinical indication); or iterative reconstruction.
[2020-03-14 11:11] LABS: Iron 82 ug/dL (65-175); Total Iron Binding Capacity 303 ug/dL (250-450); Transferrin Sat 27 % (20-55)
[2020-03-14] MEDS: Normal Saline - Diluent 50 ML VIAL IV (11:11)
[2020-03-14] MEDS: Omnipaque 350 MG/ML 100 ML BTL IJ (11:12)
[2020-03-14] MEDS: Omnipaque 350 MG/ML 50 ML BTL PO (11:21)
[2020-03-15 09:37] LABS: Hepatitis B Surface Ab Positive (See Note)
[2020-03-15 09:42] LABS: Hepatitis B Surface Ag Negative (Negative)
[2020-03-15 10:09] LABS: HIV-1/2 Ag & Ab Screen Negative (Negative)
[2020-03-15 10:18] LABS: Hep A Total Ab w Rflx IgM Negative (Negative)
[2020-03-15 10:31] LABS: Hepatitis C Ab w Rflx HCV PCR Negative (Negative)
== END 2020-03-14 02:43 ==
PROVIDERS: PCP Nurse Practitioner Family; Visit Provider Neurological Surgery
DX: E27.9 Disorder of adrenal gland, unspecified (principal); R93.5 Abnormal findings on diagnostic imaging of other abdominal regions, including retroperitoneum; R18.8 Other ascites
CPT/HCPCS: 80053; 86706; 86709; 86803; 87340; 87389; 74160; 82728; 83540; 83550; 85025; 85610; 86704; J3490; Q9967

== ENCOUNTER 2020-03-26 10:50 | Outpatient (REF) | payer BC, SELFPAY ==
--- OUTSIDE RECORDS SUMMARY | 2020-03-26 10:56 | XMS_ITS ---
:1960 Author Care Team Providers Name Role Phone DEMETRIUS LIGHT General Surgeon [phone] CHRIS SHABAZZ ([facility] INTERNAL MEDICINE) Primary Care Provi elodia [phone] BENEDICT FELIX [employer] Lead [phone] Allergies Code Code System Name Reaction Severity Status Onset NKDA ? Medications Name Status Start Date Stop Date ? ? acetaminophen 500 mg tablet Completed ? 06/12 aluminum-mag hydroxide-simethicone 200 mg-200 mg-20 mg/5 mL oral susp Active 07/08/2019 Not available Take 30 mL every 6 hours by oral route as needed. for indigestion or heartburn Compazine 10 mg tablet Active ? Not avail able Take 1 tablet every 6 hours by oral route as needed. diclofenac epolamine 1.3 % transdermal 12 hour patch Active 07/08/2019 Not available 1 patch every 12 hours by transderm. route as needed. ibuprofen 800 mg tablet Completed ? 02/24/19 19 Take 1 tablet 3 times a day by oral route as needed. methocarbamol 500 mg tablet Completed ? 06/12 mirtazapine 7.5 mg tablet Completed ? 2018 multivitamin tablet Active 07/08/2019 Not availabl e Take 1 tablet every day by oral route. naproxen 500 mg tablet Completed ? 9 [place] 5 mg-325 mg tablet Completed 02/24/2018 020 Take 1 tablet every 6 hours by oral route as needed. ondansetron 4 mg disintegrating tablet Active 0 Not available Take 1 tablet every 4-6 hours by oral route as needed. pantoprazole 40 mg Completed ? 07/08/2019 tablet,delayed release polyethylene glycol 3350 17 Completed ? 06/12 gram/dose oral powder sucralfate 1 gram tablet Completed ? 020 trazodone 100 mg tablet Completed ? 02/24/19 19 Notes: I ONLY TAKE A HIGH BP ME DICATION BID 03/19/20 Problems Name Status Onset Date Source ? Procedure on Duodenum Active 05/21/2018 ? Hemorrhoids Active ? History Long-term Drug Therapy Active ? History Procedures Date Name Performed by ? 05/21/2018 EGD/Endoscopy Information not avai lable Notes: HH. Erosive duoden itis. 02/22/18 duodenitis, malignant tumor of duodenum, upper GI hemorrhage Results Lab Results Date Name Specimen Result Interpretation Description Value Range Status Address ? 07/08/2019 CBC W/ BLD ? Wbc 7.9 10*3/uL 5.0-10.0 Final [place] Auto Diff 10*3/uL [facility] L ab (Internal) : [address] ? ? BLD ? Rbc 4.72 10*6/uL 4.60-6.00 Final N orth 10*6/uL [facility] L ab (Internal) : [address] ? ? BLD ? Hgb 15.4 g/dL 14.0-18.0 Final Nort h g/dL [facility] L ab (Internal) : [address] ? ? BLD ? Hct 45.1 % 41.0-51.0 Final [facility] L ab (Internal) : [address] ? ? BLD ? Mcv 95.6 fL 80.0-96.0 Final [facility] L ab (Internal) : [address] ? ? BLD High Mch 32.6 pg 26.0-32.0 Final [facility] L ab (Internal) : [address] ? ? BLD ? Mchc 34.1 g/dL 31.0-35.0 Final Nort h g/dL [facility] L ab (Internal) : [address] ? ? BLD ? Rdw 13.6 % 11.5-14.5 Final [facility] L ab (Internal) : [address] ? ? BLD ? Plt 188 10*3/uL 130-450 Final Nort h 10*3/uL [facility] L ab (Internal) : [address] ? ? BLD ? Anc 5.90 10*3/uL ? Final Nort h [facility] L ab (Internal) : [address] ? ? BLD High Nlr 5.46 0.00-3.20 Final [facility] Hospital L ab (Internal) : [address] ? ? BLD ? Neutro 74.7 % 40.0-75.0 Final [facility] L ab (Internal) : [address] ? ? BLD Low Lymph 13.7 % 20.0-50.0 Final [facility] L ab (Internal) : [address] ? ? BLD High Kerr 10.5 % 2.0-10.0 Final [facility] L ab (Internal) : [address] ? ? BLD Low Eos 0.3 % 1.0-6.0 % Final [facility] L ab (Internal) : [address] ? ? BLD ? Baso 0.3 % 0.0-1.0 % Final [facility] L ab (Internal) : [address] ? ? BLD ? Ig 0.5 % 0.0-0.9 % Final [facility] L ab (Internal) : [address] 07/08/2019 CMP, Serum S ? g/r 101 mg/dL 74-106 Final North or Plasma mg/dL [facility] L ab (Internal) : [address] ? ? S Low Bun 8 mg/dL 9-20 Final North mg/dL [facility] L ab (Internal) : [address] ? ? S ? Crea 0.70 mg/dL 0.66-1.25 Final Nor th mg/dL [facility] L ab (Internal) : [address] ? ? S ? Ca 9.1 mg/dL 8.4-10.2 Final North mg/dL [facility] L ab (Internal) : [address] ? ? S Low Na 129 mmol/L 137-145 Final North mmol/L [facility] L ab (Internal) : [address] ? ? S ? K 3.5 mmol/L 3.5-5.1 Final North mmol/L [facility] L ab (Internal) : [address] ? ? S Low Cl 93 mmol/L 98-107 Final [place] mmol/L [facility] L ab (Internal) : [address] ? ? S ? Tco2 26.0 mmol/L 22.0-30.0 Final No rth mmol/L [facility] L ab (Internal) : [address] ? ? S ? Tp 7.1 g/dL 6.3-8.2 Final [place] g/dL [facility] L ab (Internal) : [address] ? ? S ? Alb 4.1 g/dL 3.5-5.0 Final [place] g/dL [facility] L ab (Internal) : [address] ? ? S High Tbil 1.6 mg/dL 0.2-1.3 Final [place] mg/dL [facility] L ab (Internal) : [address] ? ? S ? Alp 73 U/L 38-126 Final [place] U/L [facility] L ab (Internal) : [address] ? ? S High Alt 125 U/L 21-72 U/L Final [place] (Sgpt) [facility] L ab (Internal) : [address] ? ? S High Ast 67 U/L 17-59 U/L Final [place] (Sgot) [facility] L ab (Internal) : [address] 07/07/2019 CBC W/ BLD ? Wbc 6.3 10*3/uL 5.0-10.0 Final [place] Auto Diff 10*3/uL [facility] Hospital L ab (Internal) : [address] ? ? BLD Low Rbc 4.59 10*6/uL 4.60-6.00 Final N orth 10*6/uL [facility] L ab (Internal) : [address] ? ? BLD ? Hgb 15.2 g/dL 14.0-18.0 Final Nort h g/dL [facility] L ab (Internal) : [address] ? ? BLD ? Hct 44.8 % 41.0-51.0 Final [place] % [facility] L ab (Internal) : [address] [place] ? ? BLD High Mcv 97.6 fL 80.0-96.0 Final [place] fL [facility] (Internal[facility] : [address] ? ? BLD High Mch 33.1 pg 26.0-32.0 Final [facility] pg [facility] (Internal) : [address] ? ? BLD ? Mchc 33.9 g/dL 31.0-35.0 Final Nort h g/dL [facility] L [facility] (Internal) : [address] ? ? BLD ? Rdw 14.2 % 11.5-14.5 Final [facility] % [facility] (Internal[facility] : [address] ? ? BLD ? Plt 183 10*3/uL 130-450 Final Nort h 10*3/uL [facility] (Internal) : [address] 07/07/2019 Lipase, S ? Lip 70 U/L 23-300 Final [place] Serum or U/L [facility] L [facility] (Internal) : [address] 07/07/2019 CMP, Serum S ? g/r 83 mg/dL 74-106 Final North or Plasma mg/dL [facility] L [facility] (Internal) : [address] ? ? S ? Bun 10 mg/dL 9-20 Final [place] mg/dL [facility] (Internal) : [address] ? ? S ? Crea 0.70 mg/dL 0.66-1.25 Final Nor th mg/dL [facility] L [facility] (Internal) : [address] ? ? S ? Ca 9.0 mg/dL 8.4-10.2 Final [facility] mg/dL [facility] (Internal) : [address] ? ? S Low Na 131 mmol/L 137-145 Final [facility] mmol/L [facility] (Internal) : [address] ? ? S ? K 4.2 mmol/L 3.5-5.1 Final [facility] mmol/L [facility] (Internal) : [address] ? ? S Low Cl 96 mmol/L 98-107 Final [facility] mmol/L [facility] (Internal) : [address] ? ? S ? Tco2 26.0 mmol/L 22.0-30.0 Final No rth mmol/L [facility] L ab (Internal) : [address] ? ? S ? Tp 7.0 g/dL 6.3-8.2 Final North g/dL [facility] L ab (Internal) : [address] ? ? S ? Alb 4.1 g/dL 3.5-5.0 Final North g/dL [facility] L ab (Internal) : [address] ? ? S ? Tbil 1.3 mg/dL 0.2-1.3 Final [place] mg/dL [facility] L ab (Internal) : [address] ? ? S ? Alp 72 U/L 38-126 Final North U/L [facility] L ab (Internal) : [address] ? ? S High Alt 151 U/L 21-72 U/L Final [place] (Sgpt) [facility] L ab (Internal) : [address] ? ? S High Ast 89 U/L 17-59 U/L Final [place] (Sgot) [facility] L ab (Internal) : [address] 07/07/2019 Troponin S ? Trop <0.06 NG/mL 0.00-0.06 Fin al North I, Serum NG/mL [facility] Lab (Internal) : [address] 07/07/2019 Differenti BLD ? Polys 67 % 40-75 % Final N orth al, Country Manual, Hospital Lab Blood (Internal) : [address] ? ? BLD ? Bands 0 % 0-5 % Final [facility] Hospital L ab (Internal) : [address] ? ? BLD ? Lymphs 20 % 20-50 % Final [facility] Hospital L ab (Internal) : [address] ? ? BLD High Kerr 11 % 2-10 % Final [facility] Hospital L ab (Internal) : [address] ? ? BLD ? Eos 1 % 0-6 % Final [facility] L ab (Internal) : [address] ? ? BLD ? Baso 1 % 0-1 % Final [facility] Hospital L ab (Internal) : [address] ? ? BLD ? Atyp 0 % ? Final [facility] Hospital L ab (Internal) : [address] ? ? BLD ? Plts, adequate adequate Final [place] Est. [facility]Internal[facility] : [address] ? ? BLD ? RBC normal normal Final [place] Morpholog [facility] L [facility] (Internal) : [address] 07/07/2019 Neutrophil BLD ? Anc-manu 4.21 10*3/uL ? Final [place] Count, al [facility] Lab (Anc), (Internal) : Blood [address] 07/07/2019 Nlr-manual BLD High Nlr - 3.35 0.00-3.20 Final [place] Manual [facility] L ab (Internal) : [address] 07/07/2019 COVID-19 SWAB ? Covid-19 negative negative [facility] RNA [facility] (SARS-CoV- Result Hospit al Lab 2), QL, (Internal ): toe trimmer-PCR, [address] w[address] y Specimen ? ? SWAB ? Performi panther [facility] ? Final [place] ng Lab lab [facility] L [facility] (Internal[facility] : [address] 07/07/2019 Hepatitis S ? Hepatiti negative negative Fin [facility] Panel s a IgM Country (A+B+C), Ab, S Hospital Lab Acute, (Internal) : Serum [address] ? ? S ? Hbs negative negative Final [place] Antigen, Country S Hospital L ab (Internal) : [address] ? ? S ? Hbc IgM negative negative Final Nort h Ab, S [facility] L ab (Internal) : [address] ? ? S ? HCV Ab, negative negative Final Nort h S [facility] L ab (Internal) : [address] 07/07/2019 HIV (1+2) S ? HIV 1/2 negative negative [facility] Ab Screen, Antigen Count ry Serum and Hospital L ab Antibody (Interna l): [address] 05/21/2018 Pathology TISS - Report results below ? Fi nal [facility] Hospital L ab (Internal) : [address] 02/28/2018 Cbc BLD - Wbc 9.3 10*3/uL 5.0-10.0 Final [place] 10*3/uL [facility] L ab (Internal) : [address] laci ? ? BLD Low Rbc 2.99 10*6/uL 4.60-6.00 Final N orth 10*6/uL [facility] L ab (Internal) : [address] laci ? ? BLD Low Hgb 9.8 g/dL 14.0-18.0 Final [place] g/dL [facility] L ab (Internal) : [address] ? ? BLD Low Hct 30.4 % 41.0-51.0 Final [facility] L ab (Internal) : [address] ? ? BLD High Mcv 101.7 fL 80.0-96.0 Final [facility] L ab (Internal) : [address] laci ? ? BLD High Mch 32.8 pg 26.0-32.0 Final [facility] L ab (Internal) : [address] laci ? ? BLD - Mchc 32.2 g/dL 31.0-35.0 Final Nort h g/dL [facility] L ab (Internal) : [address] ? ? BLD - Rdw 13.8 % 11.5-14.5 Final [facility] L ab (Internal) : [address] laci ? ? BLD - Plt 360 10*3/uL 130-450 Final Nort h 10*3/uL [facility] L ab (Internal) : [address] ? ? BLD - Anc 5.58 10*3/uL ? Final Nort h [facility] L ab (Internal) : [address] 02/24/2018 CBC W/ BLD - Wbc 5.5 10*3/uL 5.0-10.0 Final [place] Auto Diff 10*3/uL [facility] Hospital L ab (Internal) : [address] ? ? BLD Low Rbc 2.89 10*6/uL 4.60-6.00 Final N orth 10*6/uL [facility] L ab (Internal) : [address] ? ? BLD Low Hgb 9.4 g/dL 14.0-18.0 Final [place] g/dL [facility] L ab (Internal) : [address] ? ? BLD Low Hct 28.6 % 41.0-51.0 Final [facility] L ab (Internal) : [address] ? ? BLD High Mcv 99.0 fL 80.0-96.0 Final [facility] Hospital L ab (Internal) : [address] ? ? BLD High Mch 32.5 pg 26.0-32.[address] [facility] Hospital L ab (Internal) : [address] ? ? BLD - Mchc 32.9 g/dL 31.0-35.0 Final Nort h g/dL [facility] L ab (Internal) : [address] ? ? BLD - Rdw 13.2 % 11.5-14.5 Final [facility] L ab (Internal) : [address] ? ? BLD - Plt 254 10*3/uL 130-450 Final Nort h 10*3/uL [facility] L ab (Internal) : [address] ? ? BLD - Anc 3.02 10*3/uL ? Final Nort h [facility] L ab (Internal) : [address] ? ? BLD - Neutro 55.3 % 40.0-75.0 Final [facility] L ab (Internal) : [address] ? ? BLD - Lymph 32.7 % 20.0-50.0 Final [facility] L ab (Internal) : [address] ? ? BLD High Kerr 10.2 % 2.0-10.0 Final [facility] L ab (Internal) : [address] ? ? BLD Low Eos 0.5 % 1.0-6.0 % Final [facility] Hospital L ab (Internal) : [address] ? ? BLD - Baso 0.4 % 0.0-1.0 % Final [facility] L ab (Internal) : [address] ? ? BLD - Ig 0.9 % 0.0-0.9 % Final [facility] L ab (Internal) : [address] 02/23/2018 Cbc BLD - Wbc 7.8 10*3/uL 5.0-10.0 Final [place] 10*3/uL [facility] L ab (Internal) : [address] ? ? BLD Low Rbc 2.49 10*6/uL 4.60-6.00 Final N orth 10*6/uL [facility] L ab (Internal) : [address] laci ? ? BLD Low Hgb 8.1 g/dL 14.0-18.0 Final [place] g/dL [facility] L ab (Internal) : [address] laci ? ? BLD Low Hct 24.8 % 41.0-51.0 Final [facility] L ab (Internal) : [address] ? ? BLD High Mcv 99.6 fL 80.0-96.0 Final [facility] L ab (Internal) : [address] ? ? BLD High Mch 32.5 pg 26.0-32.0 Final [facility] L ab (Internal) : [address] ? ? BLD - Mchc 32.7 g/dL 31.0-35.0 Final Nort h g/dL [facility] L ab (Internal) : [address] ? ? BLD - Rdw 13.3 % 11.5-14.5 Final [facility] L ab (Internal) : [address] ? ? BLD - Plt 197 10*3/uL 130-450 Final Nort h 10*3/uL [facility] L ab (Internal) : [address] ? ? BLD - Anc 5.09 10*3/uL ? Final Nort h [facility] L ab (Internal) : [address] 02/23/2018 CBC W/ BLD - Wbc 7.0 10*3/uL 5.0-10.0 Final [place] Auto Diff 10*3/uL [facility] Hospital L ab (Internal) : [address] ? ? BLD Low Rbc 2.81 10*6/uL 4.60-6.00 Final N orth 10*6/uL [facility] L ab (Internal) : [address] ? ? BLD Low Hgb 9.1 g/dL 14.0-18.0 Final North g/dL [facility] L ab (Internal) : [address] ? ? BLD Low Hct 28.0 % 41.0-51.0 Final [facility] L ab (Internal) : [address] ? ? BLD High Mcv 99.6 fL 80.0-96.0 Final [facility] L ab (Internal) : [address] ? ? BLD High Mch 32.4 pg 26.0-32.0 Final [place] pg [facility] L ab (Internal) : [address] ? ? BLD - Mchc 32.5 g/dL 31.0-35.0 Final Nort h g/dL [facility] L ab (Internal) : [address] ? ? BLD - Rdw 13.2 % 11.5-14.5 Final [facility] L ab (Internal) : [address] ? ? BLD - Plt 232 10*3/uL 130-450 Final Nort h 10*3/uL [facility] L ab (Internal) : [address] ? ? BLD - Anc 4.57 10*3/uL ? Final Nort h [facility] L ab (Internal) : [address] ? ? BLD - Neutro 65.8 % 40.0-75.0 Final [facility] Hospital L ab (Internal) : [address] ? ? BLD - Lymph 24.9 % 20.0-50.0 Final [facility] L ab (Internal) : [address] ? ? BLD - Kerr 7.3 % 2.0-10.0 Final [facility] Hospital L ab (Internal) : [address] [place] ? ? BLD Low Eos 0.4 % 1.0-6.0 % Final [facility] L ab (Internal) : [address] ? ? BLD - Baso 0.6 % 0.0-1.0 % Final [facility] L ab (Internal) : [address] ? ? BLD High Ig 1.0 % 0.0-0.9 % Final [facility] L ab (Internal) : [address] 02/23/2018 BMP, Serum S - g/r 89 mg/dL 74-106 Final North or Plasma mg/dL [facility] L ab (Internal) : [address] ? ? S - Bun 11 mg/dL 9-20 Final North mg/dL [facility] L ab (Internal) : [address] ? ? S Low Crea 0.60 mg/dL 0.66-1.25 Final Nor th mg/dL [facility] L ab (Internal) : [address] ? ? S Low Ca 8.3 mg/dL 8.4-10.2 Final North mg/dL [facility] L ab (Internal) : [address] ? ? S Low Na 135 mmol/L 137-145 Final [place] mmol/L [facility] L ab (Internal) : [address] ? ? S - K 4.1 mmol/L 3.5-5.1 Final [place] mmol/L [facility] L ab (Internal) : [address] ? ? S - Cl 102 mmol/L 98-107 Final [place] mmol/L [facility] L ab (Internal) : [address] ? ? S - Tco2 24.0 mmol/L 22.0-30.0 Final No rth mmol/L [facility] L ab (Internal) : [address] 02/23/2018 Cbc BLD - Wbc 6.4 10*3/uL 5.0-10.0 Final North 10*3/uL [facility] L ab (Internal) : [address] ? ? BLD Low Rbc 2.70 10*6/uL 4.60-6.00 Final N orth 10*6/uL [facility] L ab (Internal) : [address] ? ? BLD Low Hgb 8.7 g/dL 14.0-18.0 Final [place] g/dL [facility] L ab (Internal) : [address] ? ? BLD Low Hct 27.0 % 41.0-51.0 Final [facility] L ab (Internal) : [address] ? ? BLD High Mcv 100.0 fL 80.0-96.0 Final [facility] L ab (Internal) : [address] ? ? BLD High Mch 32.2 pg 26.0-32.0 Final [facility] L ab (Internal) : [address] ? ? BLD - Mchc 32.2 g/dL 31.0-35.0 [facility] L ab (Internal) : [address] ? ? BLD - Rdw 13.3 % 11.5-14.5 Final [facility] L ab (Internal) : [address] ? ? BLD - Plt 212 10*3/uL 130-450 Final Nort h 10*3/uL [facility] L ab (Internal) : [address] ? ? BLD - Anc 3.46 10*3/uL ? Final Nort h [facility] L ab (Internal) : [address] 02/22/2018 CBC W/ BLD High Wbc 11.8 10*3/uL 5.0-10.0 Final [place] Auto Diff 10*3/uL [facility] Hospital L ab (Internal) : [address] ? ? BLD Low Rbc 2.91 10*6/uL 4.60-6.00 Final N orth 10*6/uL [facility] L ab (Internal) : [address] ? ? BLD Low Hgb 9.4 g/dL 14.0-18.0 Final North g/dL [facility] L ab (Internal) : [address] ? ? BLD Low Hct 28.9 % 41.0-51.0 Final [facility] ([facility] : [address] ? ? BLD High Mcv 99.3 fL 80.0-96.0 Final [facility] L ab (Internal) : [address] ? ? BLD High Mch 32.3 pg 26.0-32.[address] [facility] Hospital L ab (Internal) : [address] ? ? BLD - Mchc 32.5 g/dL 31.0-35.0 Final Nort h g/dL [facility] L ab (Internal) : [address] ? ? BLD - Rdw 13.4 % 11.5-14.5 Final [facility] L ab (Internal) : [address] ? ? BLD - Plt 222 10*3/uL 130-450 Final Nort h 10*3/uL [facility] L ab (Internal) : [address] ? ? BLD - Anc 8.64 10*3/uL ? Final [facility] L ab (Internal) : [address] ? ? BLD - Neutro 73.0 % 40.0-75.0 Final [facility] L ab (Internal) : [address] ? ? BLD Low Lymph 17.5 % 20.0-50.0 Final [facility] L ab (Internal) : [address] ? ? BLD - Kerr 8.4 % 2.0-10.0 Final [facility] L ab (Internal) : [address] ? ? BLD Low Eos 0.1 % 1.0-6.0 % Final [facility] L ab (Internal) : [address] ? ? BLD - Baso 0.2 % 0.0-1.0 % Final [facility] L ab (Internal) : [address] ? ? BLD - Ig 0.8 % 0.0-0.9 % Final [facility] L ab (Internal) : [address] 02/22/2018 BMP, Serum S - g/r 87 mg/dL 74-106 Final [place] or Plasma mg/dL [facility] (Internal[facility] : [address] ? ? S High Bun 21 mg/dL 9-20 Final [facility] mg/dL [facility] L [facility] (Internal) : [address] ? ? S Low Crea 0.60 mg/dL 0.66-1.25 Final Nor th mg/dL [facility] L ab (Internal) : [address] ? ? S Low Ca 8.0 mg/dL 8.4-10.2 Final [facility] mg/dL [facility] L ab (Internal) : [address] ? ? S - Na 137 mmol/L 137-145 Final [place] mmol/L [facility] L ab (Internal) : [address] ? ? S - K 4.0 mmol/L 3.5-5.1 Final [place] mmol/L [facility] L ab (Internal) : [address] ? ? S - Cl 105 mmol/L 98-107 Final [place] mmol/L [facility] [facility] L [facility] (Internal[facility] : [address] ? ? S - Tco2 22.0 mmol/L 22.0-30.0 Final No rth mmol/L [facility] : [address] 02/22/2018 Urease, TISS - Final microbiology ? Final [place] Qualitativ results Count ry e, Tissue Hospita l Lab (Internal) : [address] 02/22/2018 Cbc BLD High Wbc 13.5 10*3/uL 5.0-10.0 Final North 10*3/uL [facility] ([facility] : [address] ? ? BLD Low Rbc 3.01 10*6/uL 4.60-6.00 Final N orth 10*6/uL [facility] ([facility]) : [address] ? ? BLD Low Hgb 9.7 g/dL 14.0-18.0 Final North g/dL [facility] L ab (Internal) : [address] ? ? BLD Low Hct 30.0 % 41.0-51.0 Final [place] % [facility] ([facility]) : [address] ? ? BLD High Mcv 99.7 fL 80.0-96.0 Final [facility] L ab (Internal) : [address] ? ? BLD High Mch 32.2 pg 26.0-32.[address] [facility] L ab (Internal) : [address] t ? ? BLD - Mchc 32.3 g/dL 31.0-35.0 Final Nort h g/dL [facility] L ab (Internal) : [address] t ? ? BLD - Rdw 13.5 % 11.5-14.5 Final [facility] L ab (Internal) : [address] ? ? BLD - Plt 249 10*3/uL 130-450 Final Nort h 10*3/uL [facility] L ab (Internal) : [address] ? ? BLD - Anc 9.23 10*3/uL ? Final Nort [facility] Hospital L ab (Internal) : [address] t 02/22/2018 Cbc BLD High Wbc 11.7 10*3/uL 5.0-10.0 Final [place] 10*3/uL [facility] L ab (Internal) : [address] ? ? BLD Low Rbc 2.45 10*6/uL 4.60-6.00 Final N orth 10*6/uL [facility] L ab (Internal) : [address] t ? ? BLD Low Hgb 8.1 g/dL 14.0-18.0 Final [place] g/dL [facility] L ab (Internal) : [address] t ? ? BLD Low Hct 24.2 % 41.0-51.0 Final [facility] L ab (Internal) : [address] ? ? BLD High Mcv 98.8 fL 80.0-96.0 Final [facility] L ab (Internal) : [address] t ? ? BLD High Mch 33.1 pg 26.0-32.[address] [facility] L ab (Internal) : [address] ? ? BLD - Mchc 33.5 g/dL 31.0-35.0 [facility] L ab (Internal) : [address] ? ? BLD - Rdw 13.3 % 11.5-14.5 Final [facility] L ab (Internal) : [address] ? ? BLD - Plt 189 10*3/uL 130-450 Final Nort h 10*3/uL [facility] L ab (Internal) : [address] ? ? BLD - Anc 8.99 10*3/uL ? Final Nort h [facility] L ab (Internal) : [address] 02/22/2018 Pathology TISS - Report results below ? Fi nal [facility] L ab (Internal) : [address] 02/21/2018 CBC W/ BLD High Wbc 12.7 10*3/uL 5.0-10.0 Final [place] Auto Diff 10*3/uL [facility] Hospital L ab (Internal) : [address] ? ? BLD Low Rbc 3.43 10*6/uL 4.60-6.00 Final N orth 10*6/uL [facility] L ab (Internal) : [address] ? ? BLD Low Hgb 11.2 g/dL 14.0-18.0 Final Nort h g/dL [facility] L ab (Internal) : [address] ? ? BLD Low Hct 33.3 % 41.0-51.0 Final [facility] L ab (Internal) : [address] ? ? BLD High Mcv 97.1 fL 80.0-96.0 Final [facility] L ab (Internal) : [address] ? ? BLD High Mch 32.7 pg 26.0-32.0 Final [facility] L ab (Internal) : [address] ? ? BLD - Mchc 33.6 g/dL 31.0-35.0 Final Nort h g/dL [facility] L ab (Internal) : [address] ? ? BLD - Rdw 13.2 % 11.5-14.5 Final [facility] L ab (Internal) : [address] ? ? BLD - Plt 267 10*3/uL 130-450 Final Nort h 10*3/uL [facility] L ab (Internal) : [address] ? ? BLD - Anc 8.52 10*3/uL ? Final Nort h [facility] ab (Internal) : [address] [place] ? ? BLD - Neutro 67.3 % 40.0-75.0 Final [facility] L ab (Internal) : [address] ? ? BLD - Lymph 21.9 % 20.0-50.0 Final [facility] L ab (Internal) : [address] ? ? BLD - Kerr 8.7 % 2.0-10.0 Final [facility] ab (Internal) : [address] ? ? BLD Low Eos 0.3 % 1.0-6.0 % Final [facility] ab (Internal) : [address], [place] [address] ? ? BLD - Baso 0.2 % 0.0-1.0 % Final [facility] L ab (Internal) : [address] ? ? BLD High Ig 1.6 % 0.0-0.9 % Final [facility] ab (Internal) : [address] 02/21/2018 Partial BLD Low APTT 21 s 22-35 s [facility] Th[facility] (Op[facility] Countr y stin Time Hospita l Lab (Internal) : [address] 02/21/2018 Prothrombi BLD - Pt 9.7 S 9.1-11.7 Final [place] n Time S [facility] L ab (Internal) : [address] ? ? BLD - Inr 0.9 ? Final [facility] ab (Internal) : [address] 02/21/2018 Ethanol, S High Alc 20.0 mg/dL 0.0-9.9 Final [place] Blood mg/dL [facility] L ab (Internal) : [address] 02/21/2018 Troponin S - Trop <0.06 NG/mL 0.00-0.06 Fin al North I, Serum NG/mL [facility]osp[facility] l Lab (Internal) : [address] t 02/21/2018 Lipase, S - Lip 51 U/L 23-300 Final [place] Serum or U/L [facility] (Internal) : [address] t 02/21/2018 CMP, Serum S - g/r 96 mg/dL 74-106 Final North or Plasma mg/dL [facility] ([facility] : [address] ? ? S High Bun 26 mg/dL 9-20 Final [place] mg/dL [facility] ([facility]) : [address] ? ? S - Crea 0.70 mg/dL 0.66-1.25 Final Nor th mg/dL [facility] ([facility]) : [address] ? ? S - Ca 8.4 mg/dL 8.4-10.2 Final [facility] mg/dL [facility] ([facility]) : [address] ? ? S Low Na 132 mmol/L 137-145 Final [place] mmol/L [facility] ([facility]) : [address] ? ? S - K 4.0 mmol/L 3.5-5.1 Final [place] mmol/L [facility] (Internal) : [address] ? ? S Low Cl 95 mmol/L 98-107 Final [place] mmol/L [facility] L ab (Internal) : [address] ? ? S - Tco2 22.0 mmol/L 22.0-30.0 Final No rth mmol/L [facility] (Internal) : [address] ? ? S - Tp 6.4 g/dL 6.3-8.2 Final [facility] g/dL [facility] ([facility]) : [address] ? ? S - Alb 3.8 g/dL 3.5-5.0 Final [facility] g/dL [facility] (Internal) : [address] ? ? S - Tbil 0.5 mg/dL 0.2-1.3 Final [facility] mg/dL [facility] (Internal) : [address] ? ? S Low Alp 45 U/L 50-136 Final [place] U/L [facility] L ab (Internal) : [address] ? ? S Low Alt 16 U/L 21-72 U/L Final [place] (Sgpt) [facility] L ab (Internal) : [address] ? ? S - Ast 19 U/L 17-59 U/L [facility] (Sgot) [facility] L ab (Internal) : [address] 02/21/2018 Type + BLD - Abo A ? Final [facility] L ab (Internal) : [address] ? ? BLD - Rh positive ? Final [facility] L ab (Internal) : [address] ? ? BLD - Ab Scrn negative negative Final Nort h [facility] L ab (Internal) : [address] 02/21/2018 Crossmatch BLD - X-match, complete ? Shiloh Maynard , [facility], # 2 U [facility] L ab (Internal) : [address] 01/16/2018 CBC W/ BLD - Wbc 9.9 10*3/uL 5.0-10.0 Final [place] Auto Diff 10*3/uL [facility] L ab (Internal) : [address] ? ? BLD - Rbc 4.99 10*6/uL 4.60-6.00 Final N orth 10*6/uL [facility] L ab (Internal) : [address] ? ? BLD - Hgb 16.0 g/dL 14.0-18.0 Final Nort h g/dL [facility] L ab (Internal) : [address] ? ? BLD - Hct 46.3 % 41.0-51.0 Final [place] % [facility] L ab (Internal) : [address] ? ? BLD - Mcv 92.8 fL 80.0-96.0 Final [place] fL [facility] L ab (Internal) : [address] ? ? BLD High Mch 32.1 pg 26.0-32.0 Final [place] pg [facility] (Internal) : [address] ? ? BLD - Mchc 34.6 g/dL 31.0-35.0 Final Nort h g/dL [facility] L ab (Internal) : [address] ? ? BLD - Rdw 13.7 % 11.5-14.5 Final [place] % [facility] L ab (Internal) : [address] [place] ? ? BLD - Plt 264 10*3/uL 130-450 Final Nort h 10*3/uL [facility] (Internal) : [address] ? ? BLD - Anc 6.94 10*3/uL ? Final Nort h [facility] L ab (Internal) : [address] ? ? BLD - Neutro 70.4 % 40.0-75.0 Final [facility] L ab (Internal) : [address] ? ? BLD Low Lymph 19.8 % 20.0-50.0 Final [facility] L ab (Internal) : [address] ? ? BLD - Kerr 8.7 % 2.0-10.0 Final [place] % [facility] L ab (Internal) : [address] ? ? BLD Low Eos 0.1 % 1.0-6.0 % Final [facility] Hospital L ab (Internal) : [address] ? ? BLD - Baso 0.4 % 0.0-1.0 % Final [facility] Hospital L ab (Internal) : [address] ? ? BLD - Ig 0.6 % 0.0-0.9 % Final [facility] L ab (Internal) : [address] 01/16/2018 CMP, Serum S - g/r 84 mg/dL 74-106 Final North or Plasma mg/dL [facility] L ab (Internal) : [address] ? ? S - Bun 13 mg/dL 9-20 Final North mg/dL [facility] L ab (Internal) : [address] ? ? S - Crea 0.70 mg/dL 0.66-1.25 Final Nor th mg/dL [facility] L ab (Internal) : [address] ? ? S - Ca 9.5 mg/dL 8.4-10.2 Final [facility] mg/dL [facility] ([facility] : [address] ? ? S Low Na 130 mmol/L 137-145 Final [place] mmol/L [facility] (Internal) : [address] ? ? S - K 4.4 mmol/L 3.5-5.1 Final [place] mmol/L [facility] (Internal) : [address] ? ? S - Cl 98 mmol/L 98-107 Final [place] mmol/L [facility] (Internal) : [address] ? ? S Low Tco2 19.0 mmol/L 22.0-30.0 Final No rth mmol/L [facility] (Internal) : [address] ? ? S - Tp 7.6 g/dL 6.3-8.2 Final [place] g/dL [facility] (Internal) : [address] ? ? S - Alb 4.7 g/dL 3.5-5.0 Final [place] g/dL [facility] (Internal) : [address] ? ? S - Tbil 0.6 mg/dL 0.2-1.3 Final [place] mg/dL [facility] L ab (Internal) : [address] ? ? S - Alp 63 U/L 50-136 Final [place] U/L [facility] L ab (Internal) : [address] ? ? S - Alt 55 U/L 21-72 U/L Final [place] (Sgpt) [facility] L ab (Internal) : [address] ? ? S High Ast 62 U/L 17-59 U/L Final [place] (Sgot) [facility] L ab (Internal) : [address] t 01/16/2018 Magnesium, S - mg 2.1 mg/dL 1.6-2.3 Final [place] QN, Serum mg/dL [facility] Lab (Internal) : [address] 01/16/2018 D-dimer, PLASMA High Dimq 0.59 mg/L 0.00-0.50 Final [place] Quant, mg/L [facility] L ab (Internal) : [address] 01/16/2018 Troponin S - Trop <0.06 NG/mL 0.00-0.06 Fin al [place] I, Serum NG/mL [facility] Lab (Internal) : [address] 01/16/2018 Urinalysis UR - UA-color yellow pale Final [place] , yellow [facility] Dipstick, Hospita l Lab Reflex (Internal) : Micro [address] ? ? UR - UA-appea clear clear Final [place] r [facility] L ab (Internal) : [address] ? ? UR - UA-spec 1.020 1.003-1.0 Final [place] Grav 35 [facility] L ab (Internal) : [address] ? ? UR - UA-pH 7.5 [pH] 4.6-8.0 Final [place] [pH] [facility] L ab (Internal) : [address] ? ? UR - UA-leuk negative negative Final Nort h [facility] L ab (Internal) : [address] ? ? UR - UA-nitri negative negative Final Nor th [facility] L ab (Internal) : [address] ? ? UR - UA-prot negative negative Final Nort h [facility] L ab (Internal) : [address] ? ? UR - UA-gluc negative negative Final Nort h [facility] L ab (Internal) : [address] ? ? UR ABNORMA UA-keton 2+ negative Final Nort h L e [facility] L ab (Internal) : [address] ? ? UR ABNORMA UA-urobi positive normal Final Nort h l [facility] L ab (Internal) : [address] ? ? UR - UA-bili negative negative Final Nort h [facility] L ab (Internal) : [address] ? ? UR - UA-blood negative negative Final Nor th [facility] L ab (Internal) : [address] 01/16/2018 Drug UR ABNORMA Thc positive neg (50 Final No rth Screen, L NG/mL NG/mL) [facility] Urine NG/mL Hospital L ab (Internal) : [address] ? ? UR - Pcp negative neg (25 Final [place] NG/mL) [facility] (Internal) : [address] ? ? UR - Jhon negative neg (150 Final [place] NG/mL) [facility] (Internal) : [address] ? ? UR - Met negative neg (500 Final [place] NG/mL) [facility] (Internal) : [address] [place] [address] ? ? UR - Opi negative neg (100 Final [place] NG/mL) [facility] (Internal) : [address] [place] ? ? UR - Amp negative neg (500 Final [place] NG/mL) [facility] L ab (Internal) : [address] ? ? UR - Bzo negative neg (150 Final [place] NG/mL) [facility] (Internal) : [address] ? ? UR - Tca negative neg (300 Final [place] NG/mL) [facility] L ab (Internal) : [address] ? ? UR - Mtd negative neg (200 Final [place] NG/mL) [facility] (Internal) : [address] ? ? UR - Bar negative neg (200 Final [place] NG/mL) [facility] L ab (Internal) : [address] ? ? UR - Oxy negative neg (100 Final [place] NG/mL) [facility] L ab (Internal) : [address] ? ? UR - Ppx negative neg (300 Final [place] NG/mL) [facility] L ab (Internal) : [address] ? ? UR - Bup negative neg (10 Final [place] NG/mL) [facility] L ab (Internal) : [address] Past Encounters None recorded. Social History Tobacco Smoking Status Never Smoker Vaccine List None recorded. Plan of Care Reminders Provider Appointments None ? ? recorded. Lab None ? ? recorded. Referral None ? ? recorded. Procedures None ? ? recorded. Surgeries None ? ? recorded. Imaging None ? ? recorded. Vitals None recorded.
[2020-03-30 23:04] LABS: Metanephrines, U 101 mcg/24 h; Normetanephrine, U 155 mcg/24 h; Total Metanephrines, U 256 mcg/24 h; Urine Volume 2350 mL
== END 2020-03-26 10:51 | disposition home or self-care (01) ==
LOC: LBN 10:50
PROVIDERS: PCP Nurse Practitioner Family; Visit Provider Family Medicine
DX: E27.8 Other specified disorders of adrenal gland (principal)
CPT/HCPCS: 81050; 83835

== ENCOUNTER 2020-05-03 14:40 | Outpatient (CLI) | payer BC, SELFPAY ==
--- NOTE | 2020-05-03 06:00 | DI.RAD_ITS ---
EXAM: XR PAIN CLINIC SACRIOILIAC 2V CLINICAL HISTORY: DX: Sacroilliac Joint Dysfunction TECHNIQUE: 2D and realtime digital imaging was performed. CONTRAST MATERIAL: Refer to procedure report. COMPARISON: No exams were available for comparison FINDINGS: Fluoroscopy was provided for Dr. Zamora during the performance of a right sacroiliac joint injection. P lease refer to the procedure report for complete details. Fluoro time: 34.7 seconds IMPRESSION:
[2020-05-03 14:55] VITALS: BP 146/98; PULSE 82; RESP 18; TEMP 36.3; O2SAT 94
[2020-05-03 15:25] VITALS: BP 137/89; PULSE 86; RESP 15; O2SAT 97
--- NOTE | 2020-05-03 15:27 | PDOC.PAIN_ITS ---
Pain Clinic Procedure Note Procedure Note Procedure Note: INTRA-ARTICULAR SI JOINT INJECTION Date of Service: May 03, 2020 Patient: MERRY MAYNARD Provider: Joel Zamora MD COMMENTS: patient referred for right SI joint injection for localized right sided low back and buttock pain Pre-operative diagnosis: disorder of sacrum Post-operative diagnosis: same as above MERRY MAYNARD has been referred to the [facility] for intra- articular SI joint injection. Merry was interviewed and the medical record reviewed. There were no medical, pharmacologic, radiographic or other structural contraindications to attempting fluoroscopically guided intra-articular SI joint injection. Risks and expected side effects as well as potential benefit of the procedure were reviewed with MERRY , and @HIS@ voiced concerns were addressed. The printed consent form was signed and witnessed. Standard time-out procedure was performed. MERRY was placed in the prone position on the fluoroscopy table and automated blood pressure cuff and pulse oximeter applied. The skin entry point for approaching the Right sacroiliac joint was identified under the most advantageous fluoroscopic view and marked. Following thorough Chlorhexadine preparation of the skin and draping and 1% lidocaine infiltration of the skin entry point and subcutaneous tissues, a 22 gauge spinal needle was placed under fluoroscopic guidance into the RIGHT sacroiliac joint. Intra-articular placement was confirmed by a clear arthrogram resulting from the injection of 0.25ml Omnipaque 240. 1 ml 1% Lidocaine and 40mg Depomedrol was injected intra- articularily with an initial reproduction of a significant component of the usual pain. The needle was flushed with 0.5 cc of 1% Lidocaine and removed without difficulty. (49 cc of Omnipaque was wasted) MERRY s vital signs were stable throughout the procedure and were as recorded in the docflowsheet by the nursing staff. If given, dosages of intravenous drugs for anxiolysis and analgesia were documented in MAR. Follow up plans and appointments were discussed with the MERRY . Post procedure instruction was given as documented in nursing documentation and having met discharge criteria, MERRY was discharged from the [facility]. COMMENTS: No complications. F/U with Ms Mai Hooper APRN on prn basis I personally performed this entire procedure. Joel Zamora MD ABPN-subspecialty board certification in Pain Medicine Attending Physician-Pain Management
[2020-05-03] MEDS: methylPREDNISolone ACETATE 80 MG/ML VIAL IJ (15:39)
[2020-05-03] MEDS: Omnipaque 240 MG/ML 50 ML BTL IJ (15:39)
== END 2020-05-03 14:41 | disposition home or self-care (01) ==
LOC: PC 14:40
PROVIDERS: PCP Nurse Practitioner Family; Visit Provider Internal Medicine
DX: M54.5 Low back pain (principal); M53.3 Sacrococcygeal disorders, not elsewhere classified
CPT/HCPCS: 27096; 72200; J1040; Q9967

== ENCOUNTER 2020-07-12 08:52 | Outpatient (CLI) | payer BC, SELFPAY ==
--- NOTE | 2020-07-12 08:55 | PDOC.PAIN_ITS ---
Pain Clinic Procedure Note Procedure Note Procedure Note: INTRA-ARTICULAR SI JOINT INJECTION Date of Service: July 12, 2020 Patient: MERRY MAYNARD Provider: Joel Zamora MD COMMENTS: patient is status post right SI joint injection on 04/2020 which provided 100% pain relief lasting for 4 weeks and about 50% pain relief lasting several months after. Patient returns for repeat injection. Pre-operative diagnosis: disorder of sacrum Post-operative diagnosis: same as above MERRY MAYNARD has been referred to the [facility] for intra- articular SI joint injection. Merry was interviewed and the medical record reviewed. There were no medical, pharmacologic, radiographic or other structural contraindications to attempting fluoroscopically guided intra-articular SI joint injection. Risks and expected side effects as well as potential benefit of the procedure were reviewed with MERRY , and his voiced concerns were addressed. The printed consent form was signed and witnessed. Standard time-out procedure was performed. MERRY was placed in the prone position on the fluoroscopy table and automated blood pressure cuff and pulse oximeter applied. The skin entry point for approaching the Right sacroiliac joint was identified under the most advant ageous fluoroscopic view and marked. Following thorough Chlorhexadine preparation of the skin and draping and 1% lidocaine infiltration of the skin entry point and subcutaneous tissues, a 22 gauge spinal needle was placed under fluoroscopic guidance into the RIGHT sacroiliac joint. Intra-articular placement was confirmed by a clear arthrogram resulting from the injection of 0.25ml Omnipaque 240. 1 ml 1% Lidocaine and 40mg Depomedrol was injected intra- articularily with an initial reproduction of a significant component of the usual pain. The needle was flushed with 0.5 cc of 1% Lidocaine and removed without difficulty. (49 cc of Omnipaque was wasted) MERRY s vital signs were stable throughout the procedure and were as recorded in the docflowsheet by the nursing staff. If given, dosages of intravenous drugs for anxiolysis and analgesia were documented in MAR. Follow up plans and appointments were discussed with the MERRY . Post procedure instruction was given as documented in nursing documentation and having met discharge criteria, MERRY was discharged from the [facility]. COMMENTS: No complications. pre-procedure VAS score 4/10, post procedure VAS score reported as minimal out of 10. F/U with Ms Mai Hooper APRN on prn basis I personally performed this entire procedure. Joel Zamora MD ABPN-subspecialty board certification in Pain Medicine Attending Physician-Pain Management
[2020-07-12 09:24] VITALS: BP 139/88; PULSE 76; RESP 16; TEMP 37.4; O2SAT 99
[2020-07-12] MEDS: methylPREDNISolone ACETATE 80 MG/ML VIAL IJ (09:46)
[2020-07-12] MEDS: Omnipaque 240 MG/ML 50 ML BTL IJ (09:46)
[2020-07-12 09:47] VITALS: BP 158/91; PULSE 81; RESP 20; O2SAT 96
--- NOTE | 2020-07-12 09:48 | DI.RAD_ITS ---
Exam(s) XR PAIN CLINIC SACRIOILIAC 2V EXAM: XR PAIN CLINIC SACRIOILIAC 2V CLINICAL HISTORY: Dx: Sacroiliac Joint Dysfunction TECHNIQUE: 2D and realtime digital imaging was performed. COMPARISON: No exams were available for comparison FINDINGS: C-arm fluoroscopy was utilized by Dr. Zamora during reported right SI joint injection. Hard copy shows n eedle placement and injection at the inferior right SI joint. IMPRESSION: RADIATION DOSE DELIVERED: [email or web address] Wesley=6.7 mGy Total DLP
== END 2020-07-12 08:53 | disposition home or self-care (01) ==
LOC: PC 08:53
PROVIDERS: PCP Nurse Practitioner Family; Visit Provider Internal Medicine
DX: M54.5 Low back pain (principal); M53.3 Sacrococcygeal disorders, not elsewhere classified
CPT/HCPCS: 27096; 72200; J1040; Q9967

== ENCOUNTER 2020-08-10 15:32 | Emergency (ER) | payer BC, SELFPAY ==
[2020-08-10] VITALS (46 sets, daily range): BP systolic 125–189; BP diastolic 85–130; PULSE 66–80; RESP 12–29; TEMP 36.4; O2SAT 92–100
--- NOTE | 2020-08-10 15:40 | ED.GENADUL_ITS ---
Discharge Plan Disposition Patient Disposition: HOME Condition: Improving Discharge Details Clinical Impression: Postoperative abdominal pain Primary Care Provider: Jazzy Hyde ED Provider: Ethan Avila Meds and New Rx's Prescriptions: New dicyclomine 20 mg tablet 20 mg PO TID PRN (Reason: cramps) Qty: 10 RF: 0 Continued polyethylene glycol 3350 [Miralax] 17 gram/dose powder 17 gm PO DAILY PRN (Reason: constipation) Qty: 119 RF: 0 acetaminophen 500 mg tablet 500 - 1,000 mg PO TID PRN (Reason: pain) Qty: 90 RF: 0 lidocaine 5 % adhesive patch,medicated 1 patch TP .q 12 h PRN (Reason: back pain) Qty: 10 RF: 0 lisinopril 20 mg tablet 20 mg PO DAILY Qty: 90 RF: 3 Men's 50 Plus Daily Formula 400-20-370 mcg tablet 1 tab PO DAILY RF: 0 methocarbamol 500 mg tablet 500 mg PO HS PRN (Reason: muscle spasm) Qty: 60 RF: 1 acetaminophen-codeine 300-15 mg tablet 1 tab PO BID PRN (Reason: pain) Qty: 6 RF: 0 melatonin 3 MG tablet 3 mg PO HS RF: 0 pantoprazole 40 mg tablet,delayed release (DR/EC) 40 mg PO BID Qty: 180 RF: 3 sertraline 50 mg tablet 25 mg PO DAILY Qty: 90 RF: 0 sulfamethoxazole-trimethoprim [Bactrim DS] 800-160 mg tablet 1 tab PO Q12H RF: 0 propranolol 40 mg tablet 40 mg PO BID Qty: 60 RF: 12 Discharge Instructions Additional Instructions: Laboratory studies and CT scan here showed no acute pathological process. Recommend clear liquid diet. Ondansetron every 8 hours as needed for nausea/vomiting. Dicyclomine to be picked up at pharmacy tomorrow for intestinal cramping. Oxycodone if needed for severe pain every 12 hours if needed[address] Contact Dr. Palmer for follow-up tomorrow. Return to ED for fever, persistent vomiting, new or worsening Referrals: Quinn Schreiber [ NON-[facility] STAFF PHYSICIAN] - Medical Decision Making I called and spoke to the ED physician taking care of patient today at [facility]. She reports that the patient had a semielective left inguinal hernia repair Saturday morning. It was done due to pain but no mention of incarceration or strangulation. He did have an inguinal block. He presented to the ED because of left inguinal pain/scrotal pain. He had laboratory studies which were unremarkable. He was seen by the surgeon who felt that this was postoperative pain and to be expected. No imaging was done. Patient had no complaint of abdominal pain and had a soft nontender abdomen. Patient now diaphoretic with a rigid, diffusely tender abdomen. He does have a history of alcohol abuse. He is reporting black stool. ED doc from [facility] reported Hemoccult negative rectal exam today. Patient had IV established and fluids started. Morphine and Zofran ordered. IV Pepcid ordered. Laboratory studies repeated. Emergent CT of the abdomen pelvis ordered. Case discussed with our surgeon, Dr. Gauthier to give her the heads up regarding potential surgical abdomen given the rigid and diffusely tender finding in our ED. Patient laboratory studies unremarkable. White count remains normal. Hemoglobin remains normal. Lactic acid 2. Returned from CT still complaining of significant pain. Given [address] scan negative for any significant acute pathology. Patient was seen by Dr. Gauthier. For her, she report soft abdomen with distraction and able to palpate fairly deep. Patient is still complaining of pain. Seems to be less diaphoretic. Consider abdominal wall musculature spasm, will try some Valium. We will also try GI cocktail. Definitely seems better after the Valium. Abdomen now is soft and minimally tender. Oral Bentyl given as well. Seems to be doing much better at this po int. Will be discharged home with to go bottle of ondansetron and oxycodone and prescription of Bentyl sent to his pharmacy to warehouse picker tomorrow. He should contact his surgeon, Dr. Palmer, in the morning for follow-up. Return to ED for fever, persistent vomiting, hematemesis, new or worsening pain. Instructed no alcohol. Was given disc with a CT scan as well as results of his labs and the read of the CT scan. Medical Records Medical records reviewed: Yes I reviewed the patient's medical records. Lab Data Lab results reviewed: Yes I reviewed the patient's lab results. HPI General Mode of arrival: wheelchair . Date/Time Provider Initiated Documentation: 08/10/20 15:40 . Limitations to Documentation: no limitations . Information obtained by: patient, RN/MD, RN notes reviewed and old records reviewed . HPI Narrative: Patient presents to ED with complaint of severe upper abdominal pain that started after discharge from [facility] emergency department. Patient reports having a left inguinal hernia repair done on Saturday, 4 days ago. He was discharged the same day. He was seen in the ED at [facility] today because of left inguinal pain that radiated into his scrotum. He had laboratory studies done which were unremarkable and he was discharged home. At home he developed severe upper abdominal pain with nausea and dry heaves. He does report having black stool earlier today. He is an alcoholic and has been drinking postoperatively although not today. He denies chest pain or shortness of breath or back pain. Related Data Home Medications Medication Instructions Recorded Confirmed melatonin 3 mg PO HS 09/20/17 08/10/20 acetaminophen 500 mg tablet 500 - 1,000 mg PO TID PRN #90 02/28/18 08/10/20 tab-cap polyethylene glycol 3350 17 17 gm PO DAILY PRN #119 gm 02/28/18 08/10/20 gram/dose oral powder lidocaine 5 % topical patch 1 patch TP .q 12 h PRN #10 each 04/07/18 08/10/20 propranolol 40 mg PO BID #60 tab 07/12/19 08/10/20 pantoprazole 40 mg tablet,delayed 40 mg PO BID #180 tab 12/23/19 08/10/20 release lisinopril 20 mg tablet 20 mg PO DAILY #90 tab-cap 04/25/20 08/10/20 xamizcwkmwzf-urz-thaks acid-vit 1 tab PO DAILY 04/25/20 08/10/20 K-lycop 400 mcg-20 mcg-370 mcg tablet sertraline 50 mg tablet 25 mg PO DAILY #90 tab 07/06/20 08/10/20 acetaminophen 300 mg-codeine 15 mg 1 tab PO BID PRN #6 tab 08/02/20 08/10/20 tablet methocarbamol 500 mg tablet 500 mg PO HS PRN #60 tab-cap 08/02/20 08/10/20 sulfamethoxazole 800 1 tab PO Q12H 08/09/20 08/10/20 mg-trimethoprim 160 mg tablet dicyclomine 20 mg PO TID PRN #10 tab 08/10/20 Previous Rx's Medication Instructions Recorded acetaminophen 500 mg tablet 500 - 1,000 mg PO TID PRN #90 02/28/18 tab-cap polyethylene glycol 3350 17 17 gm PO DAILY PRN #119 gm 02/28/18 gram/dose oral powder lidocaine 5 % topical patch 1 patch TP .q 12 h PRN #10 each 04/07/18 propranolol 40 mg PO BID #60 tab 07/12/19 pantoprazole 40 mg tablet,delayed 40 mg PO BID #180 tab 12/23/19 release lisinopril 20 mg tablet 20 mg PO DAILY #90 tab-cap 04/25/20 sertraline 50 mg tablet 25 mg PO DAILY #90 tab 07/06/20 acetaminophen 300 mg-codeine 15 mg 1 tab PO BID PRN #6 tab 08/02/20 tablet methocarbamol 500 mg tablet 500 mg PO HS PRN #60 tab-cap 08/02/20 dicyclomine 20 mg PO TID PRN #10 tab 08/10/20 Allergies Allergy/AdvReac Type Severity Reaction Status Date / Time No Known Allergies Allergy Unverified 08/10/20 15:49 General GALLO: 3 Review of Systems Narrative: 11/24 Review of Systems completed and is negative except as stated above in HPI (Systems reviewed: Const, Eyes, ENT, Resp, CV, GI, , MSK, Skin, Neuro) [facility] Medical History Acute hemorrhagic gastritis Adrenal nodule 07/06/19-CT chest w/contrast at [facility] 3x1.6cm Alcohol use disorder Anxiety and depression Remeron effective in the past Phelps's esophagus 05/12/2020 EGD ([facility]) Chronic right-sided low back pain without sciatica (~2017) Diverticulosis of large intestine without hemorrhage (04/27/15) Duodenitis Most recent EGD 05/12/2020 showing persistent duodenitis and duodenal ulcer Fatty liver Hemorrhoids (01/26/13) S/p hemorrhoidectomy 11/2012 ([facility]); 05/2020 colonoscopy showing internal hemorrhoids Hypertension Insomnia due to anxiety and fear Palpitation Upper GI hemorrhage (~02/2018) 02/2018 [facility] admission Surgical History S/P hernia repair Family History Father , From prostate CA Prostate cancer Social History Smoking/Tobacco Use Status: Never Smoking risk assessment performed?: Yes Alcohol Intake: current Alcohol Intake frequency: 3 or more drinks per day Alcohol type: beer Details: Rehab, August 2017, trying to quit Drug use: Daily Substance use type: marijuana Caregiver/Support person: No Household members: spouse Housing: house Number of Children: 0 Communication Needs: Hard of Hearing 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 HEENT: NC/AT. Normal facial exam. Eyes: Normal conjunctiva and sclera. Neck: Supple. Trachea midline. Lungs: Normal respiratory effort. Lungs with scattered rhonchi Cor: RRR without murmur/gallop. Good radial pulses. GI: Rigid, diffusely tender abdomen Neuro: A+O x 3. Normal speech, mentation, gait. Cranial nerves II - XII grossly intact. No gross motor or sensory deficit. Ext: No C/C/E. Skin: Warm, diaphoretic no rash, no erythema.
[2020-08-10] MEDS: FAMOTIDINE 20 MG/50 ML BAG 100 MG IVPB (16:12)
[2020-08-10] MEDS: Lactated Ringers 2,000 ML 1000 ML IV (16:12)
[2020-08-10] MEDS: MORPHine 10 MG/ML VIAL 4 MG IVP (16:20)
[2020-08-10] MEDS: Ondansetron 4 MG/2 ML VIAL IVP (16:20)
--- NOTE | 2020-08-10 16:28 | DI.CT_ITS ---
Exam(s) CT ABDOMEN PELVIS W EXAM: CT ABDOMEN PELVIS W CLINICAL HISTORY: rigid abdomen s/p hernia repair Saturday. TECHNIQUE: Imaging Protocol: Axial computed tomography images with coronal and sagittal reformatted images were created and reviewed CONTRAST MATERIAL: Intravenous: Omnipaque 100cc Oral: None COMPARISON: CT CT ABDOMEN W from 03/14/2020 FINDINGS: VISUALIZED LUNG BASES: Mild benign-appearing markings in right lung base. No pleural effusions.. ABDOMEN: There is no ascites. Few calcified granulomas are noted in the liver and spleen. LIVER: There are no focal hepatic lesions evident . GALLBLADDER/BILIARY: No obvious gallbladder pathology. CBD is not dilated. PANCREAS: No evidence of pancreatic mass nor dilatation of the pancreatic duct. SPLEEN: Spleen size is normal. There are few calcified granulomas noted in the spleen. Splenic and portal veins are patent. ADRENALS: Right adrenal gland unremarkable. There is an abnormal nodule-mass in the left adrenal gla nd which measures 2.7 by 2.2 cm. Does not have the appearance of a typical adenoma. KIDNEYS:No cysts evident. No solid renal masses. No calculi nor hydronephrosis.. ABDOMINAL AORTA: Calcified but not enlarged. LYMPH NODES:There is no retroperitineal nor paraaortic adenopathy. ABDOMINAL WALL: There is some air within the left anterior abdominal wall intermuscular layers and wi thin the left inguinal canal extending down towards the scrotum. These are probably postoperative ch anges. There is no large hematoma. No drainable abscess. GI: No evidence of bowel obstruction. No free air within the peritoneal cavity. PELVIS: GI: No evidence of appendicitis.The appendix is retrocecal.There is diverticulosis of descending colo n and sigmoid evident. No evidence of obvious acute diverticulitis.. No free fluid in the pelvis. LYMPH NODES: There is no intrapelvic nor inguinal adenopathy. REPRODUCTIVE: Prostate is slightly prominent URINARY BLADDER: Urinary bladder wall is uniformly thickened. No gas within the bladder wall. No ca lculi within the bladder lumen. OSSEOUS: Multiple cysts sclerotic non expansile bone lesions in the bones of the pelvis and lumbar sp ine. Possibly benign bone islands but cannot completely exclude blastic metastatic disease. Prostat e PSA test is recommended. IMPRESSION: 1. There are findings in the inguinal canal and inguinal ring on the left side as well as some air wi thin the intermuscular layer are at and above this level which is most probably related to recent her tomas surgery. There is no drainable fluid collection. 2. There is 2.7 x 2.2 centimeter mass incidentally noted in the left adrenal gland. This does not oconnell ve typical appearance of an adenoma. Recommend further study with MRI using in and out of phase chem ical shift sequences. 3. Diverticulosis of the descending colon. No obvious acute diverticulitis. 4. Urinary bladder wall is uniformly thickened. Possibly related to cystitis but recommend urology c onsultation for possible cystoscopy. 5. Multiple sclerotic bone densities are noted in the bones of the pelvis and lumbar spine. Possibl y ches benign bone islands but recommend prostate PSA testing. RADIATION DOSE DELIVERED: 547.7mGy.cm Total DLP DATA REPOSITORY: All CT scans at this facility are submitted to the National Radiology Data Registry (NRDR) Dose Index Registry (DIR) with the [employer] (ACR). RADIATION OPTIMIZATION: All CT scans at this facility use at least one of these dose optimization te chniques: automated exposure control; mA and/or kV adjustment per patient size (includes targeted exa ms where dose is matched to clinical indication); or iterative reconstruction.
[2020-08-10 16:32] LABS: Absolute Basophil Count 0.03 10^3/uL (0.0-0.2); Absolute Lymphocyte Count 0.97 10^3/uL (1.2-3.4); Absolute Monocyte Count 0.53 10^3/uL (0.1-0.8); Absolute Neutrophil Count 5.53 10^3/uL (1.2-6.7); Basophils % 0.4; HCT 44.7 % (40.0-50.0); HGB 15.2 g/dL (13.5-17.5); Immature Grans % 1.4; Lymphocytes % 13.5; MCH 30.4 pg (27.0-33.0); MCV 89.4 fL (80-95); Monocytes % 7.4; Neutrophils % 77.3; Nucleated RBC 0 %; Platelet Count 310 10^3/uL (130-400); RDW 14.6 % (11.8-14.1); RDW-SD 48.2 fL; WBC 7.16 10^3/uL (4.4-10.8)
[2020-08-10] MEDS: Omnipaque 350 MG/ML 100 ML BTL IJ (16:32)
[2020-08-10 16:45] LABS: ALT 26 U/L (16-63); AST 27 U/L (15-37); Albumin 3.9 g/dL (3.4-5.0); Alkaline Phosphatase 76 U/L (46-116); Anion Gap 13.8 mmol/L (3-11); BUN 17 mg/dL (7-18); Bilirubin, Total 0.8 mg/dL (0.2-1.0); CO2 23.2 mmol/L (21.0-32.0); CREATININE 0.8 mg/dL (0.70-1.30); Calcium 9.6 mg/dL (8.5-10.1); Chloride 97 mmol/L (98-107); Glucose 96 mg/dL (74-106); Lipase 68 U/L (73-393); Potassium 4.8 mmol/L (3.5-5.1); Sodium 134 mmol/L (136-145)
[2020-08-10] MEDS: HYDROmorphone 2 MG/ML VIAL 1 MG IVP (17:05)
--- NOTE | 2020-08-10 17:07 | DI.VRAD_ITS ---
PROCEDURE INFORMATION: Exam: CT Abdomen And Pelvis With Contrast Exam date and time: 08/10/2020 4:00 PM Age: 59 years old Clinical indication: Other: Rigid abdomen; Prior surgery; Surgery date: 3-7 days post-operative; Surgery type: Hernia repair 08/06/20 TECHNIQUE: Imaging protocol: Computed tomography of the abdomen and pelvis with contrast. COMPARISON: CT ABDOMEN W 03/14/2020 11:03 AM FINDINGS: Lungs: scarring at the right pulmonary base. Liver: Hepatic granuloma. Gallbladder and bile ducts: Normal. No calcified stones. No ductal dilation. Pancreas: Normal. No ductal dilation. Spleen: Splenic granulomas. Adrenal glands: 2.7 cm and 2 cm left adrenal masses measuring greater than expected Hounsfield units for simple lipid rich adenoma. Kidneys and ureters: Normal. No hydronephrosis. Stomach and bowel: Colonic diverticulosis. No definite diverticulitis. Appendix: No evidence of appendicitis. Intraperitoneal space: Unremarkable. No free air. No significant fluid collection. Vasculature: Atherosclerosis. Duplicated IVC. Lymph nodes: Unremarkable. No enlarged lymph nodes. Urinary bladder: Bladder wall thickening measuring up to 1 cm. This could be related to under distension, malignancy or infection. Correlate with urinalysis. Reproductive: Unremarkable as visualized. Bones/joints: Unremarkable. No acute fracture. Soft tissues: Residual postoperative findings in the left inguinal region IMPRESSION: 1. 2.7 cm and 2 cm left adrenal masses measuring greater than expected Hounsfield units for simple lipid rich adenoma. 2. Bladder wall thickening measuring up to 1 cm. This could be related to under distension, malignancy or infection. Correlate with urinalysis. 3. Residual postoperative findings in the left inguinal region Dictated and Authenticated by: Lizeth Chacon MD. Ordering:YANELY Long MD
--- NOTE | 2020-08-10 17:17 | SCONE_ITS ---
Date of service: 08/10/20 Time of Service: 17:17 Assessment and Plan Assessment and plan (1) S/P hernia repair: Status: Acute Assessment and plan: Mr. Cantor is a pleasant 59 year old male who is POD #4 s/p open left inguinal hernia repair with mesh. The patient went to the ER at [facility]. They felt he was having normal post-op pain. He was not given any pain medication. He then came to our ER complaining of worsening pain. CT scan was unremarkable, labs were normal. On exam his abdomen is soft, when the patient is distracted. He has pain over the incision which is normal. Recommend follow up with his surgeon up at [facility] We will give him 2 Oxycodon 5 mg to get him through the night. Tylenol 650 mg po q6H prn Alternate ice and heat for comfort Stop drinking Take Mylanta as needed for epigastric pain History of Present Illness Narrative: Mr. Cantor is a 59 year old man who underwent a LIH repair at [facility] on 08/06/20. He had a nerve block donw and was sent home on the same day. He was asked to take tylenol and ibuprofen. Today the patient started complaining of left inguinal pain and went to the ER at [facility]. They felt that this was normal postoperative pain and sent him home. Per Patient he was not prescribed any pain medication. He then came to our ER this evening complaining of diffuse abdominal pain. Dr. Avila was concerned because the patient was diaphoretic and was guarding on exam. Vitals are stable, he is not tachycradic and is afebrile The patient does have a history of heavy alcohol use. No drug abuse history. Labs were normal CT scan showed post-operative changes in the left groin, a stable adrenal mass and ? thickened urinary bladder wall. I reviewed the CT scan myself and feel that the bladder thickening is due to underdistention. PROCEDURE INFORMATION: Exam: CT Abdomen And Pelvis With Contrast Exam date and time: 08/10/2020 4:00 PM Age: 59 years old Clinical indication: Other: Rigid abdomen; Prior surgery; Surgery date: 3-7 days post-operative; Surgery type: Hernia repair 08/06/20 TECHNIQUE: Imaging protocol: Computed tomography of the abdomen and pelvis with contrast. COMPARISON: CT ABDOMEN W 03/14/2020 11:03 AM FINDINGS: Lungs: scarring at the right pulmonary base. Liver: Hepatic granuloma. Gallbladder and bile ducts: Normal. No calcified stones. No ductal dilation. Pancreas: Normal. No ductal dilation. Spleen: Splenic granulomas. Adrenal glands: 2.7 cm and 2 cm left adrenal masses measuring greater than expected Hounsfield units for simple lipid rich adenoma. Kidneys and ureters: Normal. No hydronephrosis. Stomach and bowel: Colonic diverticulosis. No definite diverticulitis. Appendix: No evidence of appendicitis. Intraperitoneal space: Unremarkable. No free air. No significant fluid collection. Vasculature: Atherosclerosis. Duplicated IVC. Lymph nodes: Unremarkable. No enlarged lymph nodes. Urinary bladder: Bladder wall thickening measuring up to 1 cm. This could be related to under distension, malignancy or infection. Correlate with urinalysis. Reproductive: Unremarkable as visualized. Bones/joints: Unremarkable. No acute fracture. Soft tissues: Residual postoperative findings in the left inguinal region IMPRESSION: 1. 2.7 cm and 2 cm left adrenal masses measuring greater than expected Hounsfield units for simple lipid rich adenoma. 2. Bladder wall thickening measuring up to 1 cm. This could be related to under distension, malignancy or infection. Correlate with urinalysis. 3. Residual postoperative findings in the left inguinal region Consults Consult date: 08/10/20 Requesting physician: Ethan Avila Review of Systems Constitutional Constitutional: Denies fatigue, Denies fever(s), Denies headache(s) and Denies weight loss ENT Ears, Nose, Mouth, and Throat: Denies headache(s) Cardiovascular Cardiovascular: Denies chest pain, Denies irregular heart rhythm, Denies palpitations and Denies dyspnea Respiratory Respiratory: Denies cough and Denies dyspnea Gastrointestinal Gastrointestinal: Reports as per HPI Genitourinary Genitourinary: Reports system reviewed and no additional complaints, except as documented Musculoskeletal Musculoskeletal: Reports system reviewed and no additional complaints, except as documented Integumentary/Breasts Skin/Breast: Reports system reviewed and no additional complaints, except as documented Neurologic Neurologic: Reports system reviewed and no additional complaints, except as documented and Denies headache(s) Psychiatric Psychiatric: Reports system reviewed and no additional complaints, except as doc umented Endocrine Endocrine: Reports system reviewed and no additional complaints, except as documented, Denies fatigue and Denies palpitations [facility] Medical History Acute hemorrhagic gastritis Adrenal nodule 07/06/19-CT chest w/contrast at [facility] 3x1.6cm Alcohol use disorder Anxiety and depression Remeron effective in the past Phelps's esophagus 05/12/2020 EGD ([facility]) Chronic right-sided low back pain without sciatica (~2017) Diverticulosis of large intestine without hemorrhage (04/27/15) Duodenitis Most recent EGD 05/12/2020 showing persistent duodenitis and duodenal ulcer Fatty liver Hemorrhoids (01/26/13) S/p hemorrhoidectomy 11/2012 ([facility]); 05/2020 colonoscopy showing internal hemorrhoids Hypertension Insomnia due to anxiety and fear Palpitation Upper GI hemorrhage (~02/2018) 02/2018 [facility] admission Surgical History S/P hernia repair Family History Father , From prostate CA Prostate cancer Social History Smoking/Tobacco Use Status: Never Smoking risk assessment performed?: Yes Alcohol Intake: current Alcohol Intake frequency: 3 or more drinks per day Alcohol type: beer Details: Rehab, August 2017, trying to quit Drug use: Daily Substance use type: marijuana Caregiver/Support person: No Household members: spouse Housing: house Number of Children: 0 Communication Needs: Hard of Hearing 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 He will not look at me or open his eyes when I am trying to talk to him HENMT Head: not normocephalic and signs of trauma Resp Effort & Inspection: normal respiratory effort Cardio Rate: regular rate Rhythm: regular rhythm GI Inspection: incision (c/d/i, there is some bruising and mild swelling) Palpation: soft, no hepatosplenomegaly and tender (appropriatly tender once patient is distracted) in the LLQ; with no rebound tenderness Auscultation: normal bowel sounds Results Last Vital Signs Temp 97.5 F L 08/10/20 15:40 Pulse 72 08/10/20 15:40 Resp 26 H 08/10/20 15:40 BP 160/120 H 08/10/20 15:40 Pulse Ox 99 08/10/20 15:40 Labs Result diagrams: 08/10/20 16:14 08/10/20 16:14 Labs: Laboratory Results - last 24 hr 08/10/20 08/10/20 08/10/20 16:14 16:14 16:14 WBC 7.16 RBC 5.00 Hgb 15.2 Hct 44.7 MCV 89.4 MCH 30.4 MCHC 34.0 RDW 14.6 H Plt Count 310 MPV 9.0 Immature Gran % 1.4 Neutrophils % 77.3 Lymphocytes % 13.5 Monocytes % 7.4 Eosinophils % 0.0 Basophils % 0.4 Nucleated RBC % 0 Absolute Neutrophils 5.53 Absolute Lymphocytes 0.97 L Absolute Monocytes 0.53 Absolute Eosinophils 0.00 Absolute Basophils 0.03 VBG Lactate 2.0 H Sodium 134 L Potassium 4.8 Chloride 97 L Carbon Dioxide 23.2 Anion Gap 13.8 H BUN 17 Creatinine 0.8 Estimated GFR/1.73 m2 >= 60.00 Glucose 96 Calcium 9.6 Total Bilirubin 0.8 AST 27 ALT 26 Alkaline Phosphatase 76 Total Protein 8.0 Albumin 3.9 Lipase 68
[2020-08-10] MEDS: diazePAM 10 MG/2 ML SYR 5 MG IVP (17:58)
[2020-08-10] MEDS: Dicyclomine 20 MG TAB PO (18:20)
[2020-08-10] MEDS: Ondansetron O.D.T. 4 MG TABEF, 3 TABS/BTL PO (19:40)
== END 2020-08-10 19:56 | disposition home or self-care (01) ==
PROVIDERS: Emergency Provider Emergency Medicine; PCP Nurse Practitioner Family
DX: G89.18 Other acute postprocedural pain (principal)
CPT/HCPCS: 36415; 80053; 83690; 96361; 96365; 96375; 99285; 74177; 83605; 85025; 99284; J2270; J2405; J3360; J3490

== ENCOUNTER 2021-03-14 19:41 | Emergency (ER) | payer BC, SELFPAY ==
--- NOTE | 2021-03-14 19:43 | ED.GENADUL_ITS ---
Discharge Plan Disposition Patient Disposition: HOME Condition: Stable Discharge Details Clinical Impression: Elbow pain, left Primary Care Provider: Jazzy Hyde ED Provider: Nikolas Lin Home Meds and New Rx's Prescriptions: Continued acetaminophen 500 mg tablet 500 - 1,000 mg PO TID PRN (Reason: pain) Qty: 90 RF: 0 lidocaine 5 % adhesive patch,medicated 1 patch TP .q 12 h PRN (Reason: back pain) Qty: 10 RF: 0 gabapentin 300 mg capsule 300 mg PO TID Qty: 90 RF: 0 pantoprazole 40 mg tablet,delayed release (DR/EC) 40 mg PO BID Qty: 180 RF: 3 melatonin 3 MG tablet 3 mg PO HS RF: 0 ondansetron 4 mg tablet,disintegrating 4 mg PO Q6H PRNRF: 0 propranolol 40 mg tablet 40 mg PO BID Qty: 180 RF: 3 methocarbamol 500 mg tablet 500 - 1,000 mg PO HS PRN (Reason: muscle spasm) Qty: 60 RF: 1 sertraline 50 mg tablet 50 mg PO DAILY Qty: 90 RF: 3 hydroxyzine HCl 25 mg tablet 25 - 50 mg PO QID PRN (Reason: anxiety) Qty: 60 RF: 0 mirtazapine 15 mg Tablet 15 mg PO DAILY RF: 0 hydroxyzine pamoate [Vistaril] 25 mg Capsule 25 mg PO TID RF: 0 Discharge Instructions Additional Instructions: X-ray reveals postsurgical changes without evidence for acute abnormality. Rest, elevate, cool and/or warm compresses every 2 hours for 20 minutes. [id number] Tylenol and/or Motrin as directed for discomfort. You have declined a sling and instead will get a sleeve. Please watch for new or worsening symptoms and return to the ER for any concerns. A copy of your x-ray has been provided. Please contact your orthopedic surgeon tomorrow to discuss your ER evaluation, recent injury, and need for outpatient reevaluation. Medical Decision Making 60-year-old gentleman, [id number], presents for a left elbow injury. He is concerned he may have injured his recent surgery. Will obtain x-ray. X-ray reveals postsurgical changes without evidence for acute abnormality Discussed x-ray findings with patient. He is relieved. He declines a sling and will get an [id number] sleeve. He is requesting a copy of his x-ray so he can bring to his orthopedic provider. Copy provided. Standard discharge and return precautions provided. This documentation was generated using [employer] system, please disregard any oddities of phrase or misspellings. Medical Records Medical records reviewed: Yes I reviewed the patient's medical records. Imaging Data Radiologic Study: Attestation: I personally reviewed and interpreted this imaging study as follows: Imaging: X-Ray Radiologist's impression: PROCEDURE INFORMATION: Exam: XR Left Elbow Exam date and time: 03/14/2021 8:10 PM Age: 60 years old Clinical indication: Pain; Elbow; Left; Prior surgery; Surgery date: 1-6 months; Surgery type: Surgery 3 months ago, fall 2 weeks ago TECHNIQUE: Imaging protocol: XR Left elbow. Views: 3 or more views. COMPARISON: No relevant prior studies available. FINDINGS: Bones/joints: Status post ORIF proximal ulna. Bony alignment appears grossly anatomic. There is a small defect along the articular surface of the olecranon process. No evidence for joint effusion. Soft tissues: There is some soft tissue swelling at the olecranon bursal level. IMPRESSION: Postsurgical change without evidence for acute abnormality. Thank you for allowing us to participate in the care of your patient. HPI General Mode of arrival: ambulatory . Date/Time Provider Initiated Documentation: 03/14/21 19:43 . Limitations to Documentation: no limitations . Information obtained by: patient . HPI Narrative: This is a 60-year-old gentleman, [id number], presenting for acute on chronic left elbow pain. Patient states that he had surgery on his left elbow 3 or 4 months ago in [place] and things were going well. He states that he fell a couple of weeks ago but was unable to get his elbow evaluated because he subsequently had to go to long-term and then went to rehab. He was unable to make an appointment with his orthopedic. He denies any other injuries. He is requesting an x-ray and concerned that he may have moved his surgical hardware. He is wearing a Lidoderm patch which she states helps somewhat. He denies any numbness, tingling, weakness. Related Data Home Medications Medication Instructions Recorded Confirmed melatonin 3 mg PO HS 09/20/17 03/14/21 acetaminophen 500 mg tablet 500 - 1,000 mg PO TID PRN #90 02/28/18 03/14/21 tab-cap lidocaine 5 % topical patch 1 patch TP .q 12 h PRN #10 each 04/07/18 03/14/21 gabapentin 300 mg capsule 300 mg PO TID #90 cap 08/25/20 03/14/21 pantoprazole 40 mg tablet,delayed 40 mg PO BID #180 tab 08/25/20 03/14/21 release ondansetron 4 mg disintegrating 4 mg PO Q6H PRN 10/13/20 03/14/21 tablet hydroxyzine HCl 25 mg tablet 25 - 50 mg PO QID PRN #60 tab-cap 11/18/20 03/14/21 methocarbamol 500 mg tablet 500 - 1,000 mg PO HS PRN #60 11/18/20 03/14/21 tab-cap propranolol 40 mg tablet 40 mg PO BID #180 tab 11/18/20 03/14/21 sertraline 50 mg tablet 50 mg PO DAILY #90 tab 11/18/20 03/14/21 hydroxyzine pamoate [Vistaril] 25 mg PO TID 03/14/21 03/14/21 mirtazapine 15 mg PO DAILY 03/14/21 03/14/21 Previous Rx's Medication Instructions Recorded acetaminophen 500 mg tablet 500 - 1,000 mg PO TID PRN #90 02/28/18 tab-cap lidocaine 5 % topical patch 1 patch TP .q 12 h PRN #10 each 04/07/18 gabapentin 300 mg capsule 300 mg PO TID #90 cap 08/25/20 pantoprazole 40 mg tablet,delayed 40 mg PO BID #180 tab 08/25/20 release hydroxyzine HCl 25 mg tablet 25 - 50 mg PO QID PRN #60 tab-cap 11/18/20 methocarbamol 500 mg tablet 500 - 1,000 mg PO HS PRN #60 11/18/20 tab-cap propranolol 40 mg tablet 40 mg PO BID #180 tab 11/18/20 sertraline 50 mg tablet 50 mg PO DAILY #90 tab 11/18/20 Allergies Allergy/AdvReac Type Severity Reaction Status Date / Time No Known Allergies Allergy Verified 03/14/21 19:53 General GALLO: 2 Review of Systems Constitutional Constitutional: Denies fever(s) and Denies weakness Musculoskeletal Musculoskeletal: Denies deformity, Reports arthralgias, Denies numbness, Denies stiffness and Denies tingling Integumentary/Breasts Skin/Breast: Denies erythema Neurologic Neurologic: Denies numbness, Denies tingling and Denies weakness [facility] All Active Problems (Updated 03/14/21 @ 20:42 by ALFA Titus) Elbow pain, left (Acute) Olecranon fracture (Acute) Postoperative abdominal pain (Acute) Phelps's esophagus (Chronic) 05/12/2020 EGD ([facility]) Adrenal nodule (Chronic) 07/06/19-CT chest w/contrast at [facility] 3x1.6cm Chronic right-sided low back pain without sciatica (Chronic ~2017) Fatty liver (Chronic) Anxiety and depression (Chronic) Remeron effective in the past Hypertension (Chronic) 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) Duodenitis (Acute) Most recent EGD 05/12/2020 showing persistent duodenitis and duodenal ulcer Alcohol use disorder (Chronic) Hemorrhoids (Chronic 01/26/13) S/p hemorrhoidectomy 11/2012 ([facility]); 05/2020 colonoscopy showing internal hemorrhoids Diverticulosis of large intestine without hemorrhage (Chronic 04/27/15) Medical History Acute hemorrhagic gastritis Left inguinal hernia S/p hernia repair Palpitation Upper GI hemorrhage (~02/2018) 02/2018 [facility] admission Surgical History S/P hemorrhoidectomy Status post inguinal hernia repair (~08/06/20) W/ mesh; [facility] Status post open reduction and internal fixation (ORIF) of fracture (~09/23/20) L olecranon fx; [facility] Family History Father , From prostate CA Prostate cancer Social History Smoking/Tobacco Use Status: Never Smoking risk assessment performed?: Yes Alcohol Intake: current Alcohol Intake frequency: 3 or more drinks per day Alcohol type: beer Details: Rehab, August 2017, trying to quit Drug use: Daily Substance use type: marijuana Details: Pt has been in rehab since Feb 24. last drink Feb 24. 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 Sexually active: Yes Current gender identity: male What type of physical activity do you participate in: regular exercise Frequency: 1-2 times per week Seatbelt use: always Working smoke detector in home: Yes Carbon monox detector in home: Yes Do you feel safe at home: Yes Do you feel safe in your relationship?: Yes Exam Const General: cooperative, healthy appearing, comfortable and no acute distress Orientation: alert and awake [facility] Head: normal to inspection, normocephalic and atraumatic Mouth: moist mucous membranes Eyes Conjunctivae: conjunctivae normal Neck Neck: normal visual inspection, trachea midline and supple Resp Effort & Inspection: normal respiratory effort and able to speak in complete sentences Cardio Rate: regular rate Rhythm: regular rhythm Skin General skin exam: no rashes or lesions noted Neuro General: patient alert, patient awake, moves all extremities and no focal motor deficits Cognition: normal cognition Speech: speech normal Gait: normal gait Sensory Exam: no sensory deficits noted Extrem General: capillary refill normal Other: Left elbow with a well-healing posterior surgical incision and diffuse discomfort. There is no warmth, erythema, ecchymosis or swelling. Patient with full flexion and near full extension. He reports still limited extension has been baseline since his surgery. Neuro, vascular, tendon intact. Normal radial pulse. Psych Appearance: grossly normal Mental Status: mental status grossly normal
[2021-03-14 19:45] VITALS: BP 145/98; PULSE 119; RESP 20; TEMP 37.2; O2SAT 98
--- NOTE | 2021-03-14 20:00 | DI.RAD_ITS ---
Exam(s) XR ELBOW LT COMPLETE EXAM: XR ELBOW LT COMPLETE CLINICAL HISTORY: surgery 3 months ago, fall 2 weeks ago. TECHNIQUE: 2D digital imaging was performed. COMPARISON: No exams were available for comparison FINDINGS: There is a fixation plate along the proximal ulna. The hardware appears intact. No acute fracture i s seen. There is small defect at the articular aspect of the olecranon consistent with an old fractu re. There is some posterior soft tissue swelling. IMPRESSION: Old olecranon fracture with hardware in place. No new abnormality. DATA REPOSITORY: RADIATION DOSE DELIVERED:
--- NOTE | 2021-03-14 20:27 | DI.VRAD_ITS ---
PROCEDURE INFORMATION: Exam: XR Left Elbow Exam date and time: 03/14/2021 8:10 PM Age: 60 years old Clinical indication: Pain; Elbow; Left; Prior surgery; Surgery date: 1-6 months; Surgery type: Surgery 3 months ago, fall 2 weeks ago TECHNIQUE: Imaging protocol: XR Left elbow. Views: 3 or more views. COMPARISON: No relevant prior studies available. FINDINGS: Bones/joints: Status post ORIF proximal ulna. Bony alignment appears grossly anatomic. There is a small defect along the articular surface of the olecranon process. No evidence for joint effusion. Soft tissues: There is some soft tissue swelling at the olecranon bursal level. IMPRESSION: Postsurgical change without evidence for acute abnormality. Dictated and Authenticated by: Soheila Henry MD. Ordering:LOTTIE Connor MD
[2021-03-14 20:57] VITALS: BP 145/98; PULSE 119; RESP 20; TEMP 37.2; O2SAT 98
== END 2021-03-14 20:48 | disposition home or self-care (01) ==
PROVIDERS: Emergency Provider Physician Assistant; PCP Nurse Practitioner Family
DX: M25.522 Pain in left elbow (principal)
CPT/HCPCS: 99283; 73080; 99282

== ENCOUNTER 2021-04-28 09:03 | Outpatient (CLI) | payer OTHER, SELFPAY ==
--- NOTE | 2021-04-28 08:45 | DI.RAD_ITS ---
Exam(s) XR KNEE LT 2V AP,LAT EXAM: XR KNEE LT 2V AP,LAT CLINICAL HISTORY: L patella fx TECHNIQUE: COMPARISON: CR XR KNEE COMPLETE MIN 4V LT from 04/13/2021 FINDINGS: Two views were obtained and show previously described patellar fracture identified on outside films. No gross interval change in alignment comparison with examination of April 13. IMPRESSION: RADIATION DOSE DELIVERED: Total DLP
== END 2021-04-28 09:04 | disposition home or self-care (01) ==
LOC: DIORS 09:03
PROVIDERS: PCP Nurse Practitioner Family; Visit Provider Physician Assistant
DX: S82.092A Other fracture of left patella, initial encounter for closed fracture; W00.0XXA Fall on same level due to ice and snow, initial encounter
CPT/HCPCS: 73560

== ENCOUNTER 2021-12-14 16:29 | Emergency (ER) | payer BC, SELFPAY ==
[2021-12-14] VITALS (32 sets, daily range): BP systolic 140–187; BP diastolic 96–115; PULSE 86–204; RESP 17–39; TEMP 36.6; O2SAT 92–99
--- NOTE | 2021-12-14 08:40 | DI.CT_ITS ---
Exam(s) CT ABDOMEN PELVIS W EXAM: CT ABDOMEN PELVIS W CLINICAL HISTORY: epigastric pain, vomiting. TECHNIQUE: Imaging Protocol: Axial computed tomography images with coronal and sagittal reformatted images were created and reviewed CONTRAST MATERIAL: Intravenous: Omnipaque 94cc Oral: None COMPARISON: CT CT ABDOMEN PELVIS W from 07/10/[address] ABDOMEN PELVIS W from 08/10/2020 FINDINGS: VISUALIZED LUNG BASES: No nodules nor pleural effusions evident. ABDOMEN: There is no ascites. LIVER: The liver is again noted to be hypodense implying steatosis. There are no discrete ominous fo nancy hepatic lesions evident. GALLBLADDER/BILIARY: No obvious gallbladder pathology. CBD is not dilated. PANCREAS: No evidence of pancreatic mass nor dilatation of the pancreatic duct. SPLEEN: Spleen is not enlarged. No obvious intrasplenic lesions. Calcified splenic granulomas are n oted. Splenic and portal veins are patent. ADRENALS: Nodules in both limbs of the left adrenal gland are again noted basically unchanged from pr ior CT scans dating back to 07/10/2019. The larger of the 2 nodules measures 2.8 cm, unchanged from the previous study. The other smaller left adrenal nodules also unchanged. Right adrenal gland sobeida ins unremarkable in appearance. In KIDNEYS:No cysts evident. No solid renal masses. No calculi nor hydronephrosis.. ABDOMINAL AORTA: Abdominal aorta is not enlarged. Please note there is there is an anatomic variant here. 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 The left common iliac vein does not drain into the ri ght side and instead forms a independent 1 cm diameter left sided IVC which drains into the left shlomo l vein, similar to the prior study. LYMPH NODES:There is no retroperitoneal nor paraaortic adenopathy. ABDOMINAL WALL: No evidence of significant anterior abdominal wall nor inguinal hernia. GI: There is no evidence of bowel obstruction, free air, nor abscess. PELVIS: GI: No evidence of appendicitis.Sigmoid diverticulosis. No obvious acute diverticulitis. No free fl uid. LYMPH NODES: There is no intrapelvic nor inguinal adenopathy. REPRODUCTIVE: Prostate size upper normal. Seminal vesicles unremarkable. URINARY BLADDER: There is diffuse uniform thickening of the urinary bladder wall which is unchanged f rom prior studies and probably reflects chronic cystitis. OSSEOUS: Schmorl's node invagination the right-side of the L1 vertebral body is unchanged from prior studies. No new significant lytic osseous lesions. There are again noted multiple small benign bone islands in the L2 and L5 vertebral bodies as well as S1 level. There are no new ominous osseous les ions. IMPRESSION: 1. There is diffuse uniform thickening of the urinary bladder again noted, unchanged from prior CT sc ans and probably related to chronic cystitis. There is no distinct obvious asymmetric urinary bladde r wall mass. 2. Anatomic variant here with a persistent left-sided IVC, this measuring 1 centimeter. There is a n ormal right-sided IVC and there is a smaller 1 cm left IVC which drains the left common iliac vein. This is an important finding if this patient is ever to require IVC filter. 3. Left-sided adrenal masses are unchanged from 07/10/2019 with measurements as above. The right adr enal gland remains unremarkable. 4. Hepatic steatosis again noted but no ominous focal hepatic lesions. No obvious acute findings RADIATION DOSE DELIVERED: 633.06mGy.cm Total DLP DATA REPOSITORY: All CT scans at this facility are submitted to the National Radiology Data Registry (NRDR) Dose Index Registry (DIR) with the [employer] (A[employer]). RADIATION OPTIMIZATION: All CT scans at this facility use at least one of these dose optimization te chniques: automated exposure control; mA and/or kV adjustment per patient size (includes targeted exa ms where dose is matched to clinical indication); or iterative reconstruction.
--- NOTE | 2021-12-14 16:45 | RT.EKG_ITS ---
APPROVED REPORT Exam: Resting ECG Reason for Exam: weakness, feels faint Patient Location: E HR:105 bpm ECG Measurements Heart Rate 105 AXIS MS 176 P 75 QRSd 84 QRS 245 QT 337 T 43 QTc 447 Conclusion Sinus tachycardia...rate> 99 Left atrial enlargement...P, P'>60mS, <-0.15mV V1 Inferior infarct, old...Q >35mS, II III aVF Left [place] Nonspecific ST-T changes
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
[2021-12-14] MEDS: Ondansetron 4 MG/2 ML VIAL IVP ×2 (17:32→21:31)
[2021-12-14] MEDS: Pantoprazole 40 MG VIAL IVP (17:32)
[2021-12-14] MEDS: HYDROmorphone 2 MG/ML SYR 1 MG IVP (17:33)
[2021-12-14] MEDS: Lactated Ringers 2,000 ML 1000 ML IV (17:33)
[2021-12-14 18:00] LABS: Abs Immature Grans 0.06 10^3/uL (0.0-0.06); Absolute Basophil Count 0.03 10^3/uL (0.0-0.2); Absolute Eosinophil Count 0.01 10^3/uL (0.0-0.7); Absolute Lymphocyte Count 0.72 10^3/uL (1.2-3.4); Absolute Monocyte Count 0.67 10^3/uL (0.1-0.8); Absolute Neutrophil Count 8.67 10^3/uL (1.2-6.7); Basophils % 0.3; Eosinophils % 0.1; HGB 16.6 g/dL (13.5-17.5); Immature Grans % 0.6; Lymphocytes % 7.1; MCH 31.8 pg (27.0-33.0); MCHC 34.6 % (32.0-36.0); MCV 92 fL (80-95); MPV 9.5 fL (8.0-11.0); Monocytes % 6.6; Neutrophils % 85.3; Platelet Count 229 10^3/uL (130-400); RBC 5.22 10^6/uL (4.36-5.78); RDW 13.5 % (11.8-14.1); RDW-SD 46.2 fL; WBC 10.16 10^3/uL (4.4-10.8)
[2021-12-14 18:11] LABS: INR 0.9 (0.9-1.1); Prothrombin Time 9.3 sec (9.3-11.0)
[2021-12-14 18:21] LABS: ALT 156 U/L (16-63); AST 106 U/L (15-37); Albumin 4.8 g/dL (3.4-5.0); Alkaline Phosphatase 87 U/L (46-116); Anion Gap 13.3 mmol/L (3-11); BUN 9 mg/dL (7-18); Bilirubin, Direct 0.3 mg/dL (0.0-0.2); CO2 28.7 mmol/L (21.0-32.0); CREATININE 0.8 mg/dL (0.70-1.30); Chloride 91 mmol/L (98-107); Estimated GFR 99.44 (mL/min/1.73m2); Glucose 108 mg/dL (74-106); Lipase 104 U/L (73-393); Magnesium 2.1 mg/dL (1.8-2.4); Potassium 3.6 mmol/L (3.5-5.1); Sodium 133 mmol/L (136-145); Total Protein 8.8 g/dL (6.4-8.2); Troponin I < 50 ng/L (<or=60)
[2021-12-14 18:22] LABS: ETHANOL BLOOD < 3.0 mg/dL (<10)
[2021-12-14] MEDS: Omnipaque 350 MG/ML 500 ML BTL-Imaging package IJ (18:38)
--- NOTE | 2021-12-14 18:53 | DI.VRAD_ITS ---
PROCEDURE INFORMATION: Exam: CT Abdomen And Pelvis With Contrast Exam date and time: 12/14/2021 6:39 PM Age: 61 years old Clinical indication: Other: Epigastric pain, vomiting TECHNIQUE: Imaging protocol: Computed tomography of the abdomen and pelvis with contrast. Contrast material: 350; Contrast volume: 95 ml; Contrast route: INTRAVENOUS (IV); COMPARISON: CT ABDOMEN PELVIS W 08/10/2020 4:25 PM FINDINGS: Liver: Fatty liver, mildly enlarged with hepatic calcifications, unchanged. Gallbladder and bile ducts: Normal. No calcified stones. No ductal dilation. Pancreas: Normal. No ductal dilation. Spleen: Splenic calcifications consistent with old granulomatous change again noted. Adrenal glands: Heterogeneous left adrenal mass does not appear significantly changed, 2.5 cm in diameter. Kidneys and ureters: Normal. No hydronephrosis. Stomach and bowel: Diverticulosis without acute diverticulitis again seen. Appendix: No evidence of appendicitis. Intraperitoneal space: Minimal soft tissue stranding again appreciated in the left inguinal region, markedly improved compared to previous study. Vasculature: Moderate atherosclerotic change again noted. Lymph nodes: Unremarkable. No enlarged lymph nodes. Urinary bladder: Bladder wall thickening is again appreciated, not significantly changed from previous study. Reproductive: Unremarkable as visualized. Bones/joints: Previously noted sclerotic lesions in the pelvis and spine are again noted. Soft tissues: Unremarkable. IMPRESSION: Stable, nonacute findings as described on prior study. No acute abnormality seen to account for current symptoms. Dictated and Authenticated by: Soheila Henry MD. Ordering:YANELY Long MD
[2021-12-14] MEDS: Famotidine 20 MG/2 ML VIAL IVP (19:48)
[2021-12-14] MEDS: Sucralfate 1 GM TAB PO ×3 (19:48→21:50)
[2021-12-14] MEDS: Prochlorperazine 10 MG/2 ML VIAL IVP (19:48)
[2021-12-14 20:00] LABS: Bilirubin Negative (Negative); Blood Trace-intact (Negative); Clarity Clear (Clear); Glucose Negative (Negative); Ketones 40 mg/dL (Negative); Leukocyte Esterase Negative (Negative); Nitrite Negative (Negative); Specific Gravity 1.015 (1.005-1.025); pH 7.5 (5-8)
[2021-12-14 20:24] LABS: Bacteria Negative HPF (Negative); C & S Indicated? No; Crystals Negative HPF (Negative); Epithelial Cells Rare HPF (Negative); Mucus Moderate (Negative); WBC Negative HPF (0-5)
[2021-12-14 21:16] LABS: Troponin I < 50 ng/L (<or=60)
--- NOTE | 2021-12-14 21:26 | W.EDPROG ---
Date of service: 12/14/21 Time of Service: 21:26 Medical Decision Making Received signout from Dr. Avila. Please see his note regarding details of the initial presentation, exam and plan of care. Patient's repeat troponin returned negative. He had some relief of his epigastric pain with medication. The remainder of his laboratories were reassuring with note of AST 106, ALT 156. Patient voiced plan to stop drinking alcohol. He has no interest in counseling this evening. Place him on Carafate and Zofran as needed. He will continue his PPI. He stable and appropriate for discharge Sign Out Sign Out Data: Sign Out Comment: Pending second troponin and reevaluation for improvement of symptoms. Last updated by Ethan Avila MD at 12/14/21 20:03 Discharge Plan Disposition Patient Disposition: HOME Condition: Stable Discharge Details Clinical Impression: Alcohol use disorder, Acute alcoholic gastritis Primary Care Provider: Jazzy Hyde ED Provider: Brendon Ma Home Meds and New Rx's Prescriptions: New sucralfate [Carafate] 1 gram tablet 1 g PO BID 10 Days Qty: 20 0RF Continued acetaminophen 500 mg tablet 500 - 1,000 mg PO TID PRN (Reason: pain) Qty: 90 0RF lidocaine 5 % adhesive patch,medicated 1 patch TP .q 12 h PRN (Reason: back pain) Qty: 10 0RF Rx Instructions: leave on most painful area for 12 hrs gabapentin 300 mg capsule 300 mg PO TID Qty: 90 0RF sertraline 50 mg tablet 25 mg PO DAILY Qty: 30 0RF hydroxyzine HCl 25 mg tablet 25 - 50 mg PO QID PRN (Reason: anxiety) Qty: 60 0RF melatonin 3 mg tablet 3 mg PO HS Qty: 90 3RF Rx Instructions: may repeat x1 after 1 hr methocarbamol 500 mg tablet 500 - 1,000 mg PO HS PRN (Reason: muscle spasm) Qty: 60 1RF Rx Instructions: Take one or two tabs at bedtime if needed. pantoprazole 20 mg tablet,delayed release (DR/EC) 20 mg PO DAILY Qty: 90 3RF Rx Instructions: Take 20 mg daily once daily in the morning at least 30-60 minutes before first meal of the day celecoxib [Celebrex] 100 mg capsule 100 mg PO BID mirtazapine 15 mg Tablet 15 mg PO DAILY Hold Instructions: Home Medication placed on hold at Doctor's office Discharge Instructions Instructions: Gastritis (ED) Additional Instructions: Hold your Celebrex for 2 to 3 days time. Continue your regular medications including pantoprazole. Take Carafate as prescribed. Zofran as needed for nausea. Continue your plan to cease alcohol use. Return to the ER for any acute concerns.
[2021-12-14] MEDS: Ondansetron O.D.T. 4 MG TABEF, 3 TABS/BTL PO (21:49)
== END 2021-12-14 22:30 | disposition home or self-care (01) ==
PROVIDERS: Emergency Medicine; Emergency Provider Emergency Medicine; PCP Nurse Practitioner Family
DX: K29.20 Alcoholic gastritis without bleeding (principal); F10.988 Alcohol use, unspecified with other alcohol-induced disorder; Y90.0 Blood alcohol level of less than 20 mg/100 ml; R00.0 Tachycardia, unspecified
CPT/HCPCS: 80048; 80076; 83690; 93005; 96361; 96374; 96375; 99285; 74177; 80320; 81003; 81015; 83735; 84484; 85025; 85610; 93010; 99284; J0780; J1170; J2405

== ENCOUNTER 2022-02-15 08:29 | Emergency (ER) | payer OTHER, SELFPAY ==
--- NOTE | 2022-02-15 08:15 | RT.EKG_ITS ---
APPROVED REPORT Exam: Resting ECG Reason for Exam: unresponsive Patient Location: E HR:91 bpm ECG Measurements Heart Rate 91 AXIS WV 163 P 79 QRSd 84 QRS -85 QT 375 T 60 QTc 457 Conclusion Sinus rhythm...normal P axis, V-rate 60- 99 Atrial premature complex...SV complex w/ short R-R interval Inferior infarct, old...Q >35mS, II III aVF
[2022-02-15 08:33] VITALS: BP 163/101; PULSE 89; RESP 16; TEMP 36.8; O2SAT 96
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
[2022-02-15 09:26] VITALS: RESP 23
[2022-02-15 09:31] LABS: Abs Immature Grans 0.07 10^3/uL (0.0-0.06); Absolute Basophil Count 0.02 10^3/uL (0.0-0.2); Absolute Eosinophil Count 0.03 10^3/uL (0.0-0.7); Absolute Lymphocyte Count 1.02 10^3/uL (1.2-3.4); Absolute Monocyte Count 0.88 10^3/uL (0.1-0.8); Absolute Neutrophil Count 6.44 10^3/uL (1.2-6.7); Basophils % 0.2; Eosinophils % 0.4; HCT 44.2 % (40.0-50.0); HGB 15.2 g/dL (13.5-17.5); Immature Grans % 0.8; Lymphocytes % 12.1; MCH 32.5 pg (27.0-33.0); MCHC 34.4 % (32.0-36.0); MCV 94 fL (80-95); Monocytes % 10.4; Neutrophils % 76.1; Platelet Count 273 10^3/uL (130-400); RBC 4.68 10^6/uL (4.36-5.78); RDW 13.1 % (11.8-14.1); RDW-SD 45.3 fL; WBC 8.46 10^3/uL (4.4-10.8)
[2022-02-15 09:45] LABS: ALT 22 U/L (16-63); AST 18 U/L (15-37); Albumin 3.8 g/dL (3.4-5.0); Alkaline Phosphatase 89 U/L (46-116); BUN 19 mg/dL (7-18); Bilirubin, Total 0.7 mg/dL (0.2-1.0); CREATININE 0.8 mg/dL (0.70-1.30); Calcium 8.9 mg/dL (8.5-10.1); Chloride 102 mmol/L (98-107); Estimated GFR 99.44 (mL/min/1.73m2); Glucose 99 mg/dL (74-106); Potassium 4.1 mmol/L (3.5-5.1); Sodium 137 mmol/L (136-145); Total Protein 7.5 g/dL (6.4-8.2); Troponin I < 50 ng/L (<or=60)
[2022-02-15 09:46] LABS: ETHANOL BLOOD < 3.0 mg/dL (<10)
[2022-02-15] MEDS: Normal Saline - Diluent 50 ML VIAL IJ (09:54)
[2022-02-15] MEDS: Omnipaque 350 MG/ML 500 ML BTL-Imaging package IJ (09:56)
[2022-02-15 10:00] LABS: Prothrombin Time 10.3 sec (9.3-11.0)
[2022-02-15 11:24] LABS: *AMPHETAMINES SCREEN URINE Negative (Negative); *BARBITURATES SCREEN URINE Negative (Negative); *BENZODIAZEPINES SCREEN URINE Positive (Negative); Cannabinoids THC Positive (Negative); Cocaine Screen,Urine Negative (Negative); METHADONE URINE SCREEN Negative (Negative); OPIATES URINE SCREEN Negative (Negative); Tricyclic Antidepressants Negative (Negative)
[2022-02-15] MEDS: Acetaminophen Solution 650 MG/20.3 ML CUP PO (11:26)
[2022-02-15] MEDS: Lidocaine 5% Patch 1 PATCH TP (11:31)
== END 2022-02-15 12:02 | disposition home or self-care (01) ==
PROVIDERS: Emergency Provider Student in an Organized Health Care Education/Training Program; PCP Nurse Practitioner Family
DX: S50.12XA Contusion of left forearm, initial encounter (principal); S22.32XD Fracture of one rib, left side, subsequent encounter for fracture with routine healing; R91.8 Other nonspecific abnormal finding of lung field; K76.9 Liver disease, unspecified; E27.8 Other specified disorders of adrenal gland; I10 Essential (primary) hypertension; Y04.2XXA Assault by strike against or bumped into by another person, initial encounter
CPT/HCPCS: 36415; 36416; 74177; 80053; 80307; 82962; 86850; 86900; 86901; 93005; 99285; 70450; 71260; 72125; 73090; 80320; 84484; 85025; 85610; 85730; 93010

== ENCOUNTER 2023-11-27 17:10 | Emergency (ER) | payer BC, SELFPAY ==
[2023-11-27] VITALS (34 sets, daily range): BP systolic 138–208; BP diastolic 90–119; PULSE 80–101; RESP 12–27; TEMP 37; O2SAT 92–100
--- NOTE | 2023-11-27 17:00 | RT.EKG_ITS ---
APPROVED REPORT Exam: Resting ECG Reason for Exam: dizziness Patient Location: E HR:86 bpm ECG Measurements Heart Rate 86 AXIS FL 159 P 0 QRSd 99 QRS 7 QT 398 T 68 QTc 476 Conclusion Sinus rhythm. 86 normal axis no stemi
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
--- NOTE | 2023-11-27 17:25 | W.ED.GENAD ---
Discharge Plan Disposition Patient Disposition: Home Discharge Details Clinical Impression: Diarrhea, Alcohol use disorder Primary Care Provider: Israel Thornton ED Provider: Sakshi Kumar Home Meds and New Rx's Prescriptions: No Action pantoprazole 20 mg tablet,delayed release (DR/EC) 20 mg PO DAILY Qty: 90 3RF Rx Instructions: Take 20 mg daily once daily in the morning at least 30-60 minutes before first meal of the day sertraline 50 mg tablet 25 mg PO DAILY Qty: 90 3RF hydroxyzine HCl 25 mg tablet 25 - 50 mg PO QID PRN (Reason: anxiety) Qty: 60 3RF methocarbamol 500 mg tablet 500 - 1,000 mg PO HS PRN (Reason: muscle spasm) Qty: 60 1RF Rx Instructions: Take one or two tabs at bedtime if needed. Discharge Instructions Additional Instructions: Please avoid drinking to excess, but do not abruptly stop drinking alcohol as this can be very dangerous Please engage in a community program if you wish to safely detox from alcohol and maintain sobriety You have signs and symptoms consistent with a viral diarrheal illness. You may also develop some vomiting. You have been provided with some Zofran to take as needed. Please increase your water intake and also try to drink some electrolyte fluids like Gatorade or Pedialyte Return to the emergency department if you develop worsening symptoms HPI General Date/Time Provider Initiated Documentation: 11/27/23 17:20. Limitations to Documentation: altered mental status and physical limitation. Information obtained by: patient. HPI Narrative: 63-year-old gentleman with past medical history of hypertension, chronic alcohol abuse presents for evaluation of shortness of breath. Patient history is significantly limited. He states that he feels very tired. He states that he had onset of symptoms around noon today. He reports that he felt very dizzy, lightheaded and short of breath and he felt like he was get a pass out. It is unclear if he actually did lose consciousness. He denies any chest pain. Reports that he drinks heavily, but his last drink was yesterday. He reports that he had 10 beers yesterday. He is unable to tell me if he has any history of significant complications of alcohol withdrawal. Related Data Home Medications ?Medication ?Instructions ?Recorded ?Confirmed hydroxyzine HCl 25 mg tablet 25 - 50 mg (1 - 2 x 25 mg) PO QID 12/13/22 12/13/22 PRN anxiety #60 tab-caps pantoprazole 20 mg tablet,delayed 20 mg PO DAILY #90 tab-caps 12/13/22 12/13/22 release sertraline 50 mg tablet 25 mg (1/2 x 50 mg) PO DAILY #90 12/13/22 12/13/22 tabs methocarbamol 500 mg tablet 500 - 1,000 mg (1 - 2 x 500 mg) PO 02/18/23 HS PRN muscle spasm #60 tab-caps Previous Rx's ?Medication ?Instructions ?Recorded hydroxyzine HCl 25 mg tablet 25 - 50 mg (1 - 2 x 25 mg) PO QID 12/13/22 PRN anxiety #60 tab-caps pantoprazole 20 mg tablet,delayed 20 mg PO DAILY #90 tab-caps 12/13/22 release sertraline 50 mg tablet 25 mg (1/2 x 50 mg) PO DAILY #90 12/13/22 tabs methocarbamol 500 mg tablet 500 - 1,000 mg (1 - 2 x 500 mg) PO 02/18/23 HS PRN muscle spasm #60 tab-caps Allergies Allergy/AdvReac Type Severity Reaction Status Date / Time No Known Allergies Allergy Verified 12/13/22 10:54 General Stated Complaint: GenMedical GALLO: 3 Exam Narrative Exam Narrative: Review of Systems: All systems reviewed & are unremarkable except as noted in HPI and below Well-developed Sitting with eyes closed, towel around his neck, repeatedly wiping his face and moaning loudly NCAT PERRL, normal conjunctiva Slight tachycardia Unlabored respiratory effort no hypoxia, mild tachypnea Nondistended abdomen soft nontender no focal neurologic deficits Course Vital Signs Vital signs: Vital Signs Temperature 37.0 C 11/27/23 17:14 Pulse 85 11/27/23 17:14 Respiratory Rate 17 11/27/23 17:14 Pulse Oximetry 100 11/27/23 17:14 Temperature 37.0 C 11/27/23 17:21 Temperature Source Oral 11/27/23 17:21 Pulse 87 11/27/23 17:21 Respiratory Rate 18 11/27/23 17:21 Respiratory Effort Normal, Non-Labored 11/27/23 17:21 Respiratory Depth Normal 11/27/23 17:21 Blood Pressure 208/114 H 11/27/23 17:21 Blood Pressure Position Supine 11/27/23 17:21 Pulse Oximetry 99 11/27/23 17:21 Oxygen Delivery Method Room Air 11/27/23 17:21 Oxygen Flow Rate 0 11/27/23 17:14 Medical Decision Making Emergent evaluation of shortness of breath. My suspicion is that the patient is exhibiting symptoms of alcohol withdrawal. He has no signs of respiratory distress at this time. He is unable to provide significant history, he states that symptoms have been ongoing for only 5 hours. He reports that his dropped him off here. Per review of the medical records, the last time his just dropped him off at the ER he was in alcohol withdrawal after a long [place]. Plan for lab work to evaluate for electrolyte derangement, alcohol and tox screens, he is noted to be hypertensive so I will go ahead and initiate treatment with oral and IV doses of Valium. 1800 Lab work reviewed. No leukocytosis or significant anemia. He has got some mild electrolyte derangement consistent with some dehydration, likely alcoholic ketosis. Hyperglycemia without evidence of DKA. Initial troponin is negative, I doubt a cardiac etiology and further troponins will be canceled. His alcohol level today is negative. Thyroid function within normal limits. His bilirubin is noted to be slightly elevated. He is not complaining of abdominal pain, but does have this complaint of shortness of breath, and a low suspicion for an acute cholecystitis or other obstructive pathology but will get CT scan as ultrasound is not available to me at this time. 1924 CT abdomen pelvis imaging radiology report was reviewed and this does not demonstrate an acute emergent process. Likely enteritis and the patient states that he has been having diarrhea. No etiology to explain his slightly elevated T. bili. The patient's vital signs have significantly improved, blood pressure and heart rate within normal limits at this time. 1954 On reevaluation, patient is maintained normal vital signs. He was able to get up and get himself onto the bedside commode. He is having diarrhea. He was able to provide a urine sample. He does not have electrolyte derangement and he is receiving some IV fluid at this time. I do not appreciate an indication for hospitalization at this time and feel the patient would be stable for discharge with some antiemetics and increased oral hydration. He does not have any interest in sobriety at this time. 2100 Urinalysis reviewed. No signs of infection. The patient has been hydrated with a banana bag and has been tolerating oral intake and not had significant amount of diarrhea in the emergency department. At this time I think he is hemodynamically stable for discharge home and his will come pick him up. He is not just delaying any concerning signs for severe alcohol withdrawal and is not interested in receiving any resources at this time. Quality:[facility] Health Related Social Needs: No Data to Display [facility] All Active Problems (Updated 11/27/23 @ 20:36 by Sakshi Kumar MD) Diarrhea (Acute) Lipoma (Acute) Palpitation (Acute) Gastritis and duodenitis (Acute) Most recent EGD ([facility]) 05/12/2020: duodenitis, duodenal ulcer, gastritis, Phelps's Duodenal ulcer (Acute) Most recent EGD ([facility]) 05/12/2020: duodenitis, duodenal ulcer, gastritis, Phelps's Phelps's esophagus (Chronic) Most recent EGD ([facility]) 05/12/2020: duodenitis, duodenal ulcer, gastritis, Phelps's Chronic right-sided low back pain without sciatica (Chronic ~2017) Fatty liver (Chronic) Anxiety and depression (Chronic) Remeron effective in the past 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) Alcohol use disorder (Chronic) Diverticulosis of large intestine without hemorrhage (Chronic 04/27/15) Medical History Adrenal nodule 07/06/19-CT chest w/contrast at [facility]; 12/2021 CT: stable Upper GI hemorrhage (~02/2018) 02/2018 [facility] admission; again in 05/2020 ([facility]) Hypertension Hemorrhoids (01/26/13) S/p hemorrhoidectomy 11/2012 ([facility]); 05/2020 colonoscopy showing internal hemorrhoids Surgical History Status post inguinal hernia repair (~08/06/20) W/ mesh; [facility] Status post open reduction and internal fixation (ORIF) of fracture (~09/23/20) L olecranon fx; [facility] S/P hemorrhoidectomy Family History Father , From prostate [place] Prostate cancer Social History Smoking/Tobacco Use Status: Never Smoking risk assessment performed?: Yes Alcohol Intake: current Alcohol Intake frequency: 3 or more drinks per day Alcohol type: beer Details: History of alcohol use disorder Drug use: Daily Substance use type: marijuana Details: Last drink around 1100 - states he has been binging for 3-4 days. 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
[2023-11-27 17:32] LABS: Abs Immature Grans 0.05 10^3/uL (0.0-0.06); Absolute Basophil Count 0.03 10^3/uL (0.0-0.2); Absolute Monocyte Count 0.88 10^3/uL (0.1-0.8); Absolute Neutrophil Count 6.76 10^3/uL (1.2-6.7); Basophils % 0.3 %; Eosinophils % 1.1 %; HCT 48.3 % (40.0-50.0); HGB 16.9 g/dL (13.5-17.5); Immature Grans % 0.5 %; Lymphocytes % 14.3 %; MCH 32.6 pg (27.0-33.0); MCV 93 fL (80-95); MPV 8.7 fL (8.0-11.0); Monocytes % 9.6 %; Neutrophils % 74.2 %; Platelet Count 222 10^3/uL (130-400); RBC 5.18 10^6/uL (4.36-5.78); RDW 12.5 % (11.8-14.1); RDW-SD 43.6 fL; WBC 9.12 10^3/uL (4.4-10.8)
[2023-11-27 17:56] LABS: ALT 34 U/L (16-63); AST 24 U/L (15-37); Albumin 4.8 g/dL (3.4-5.0); Alkaline Phosphatase 73 U/L (46-116); Anion Gap 13.4 mmol/L (3-11); BUN 8 mg/dL (7-18); Bilirubin, Total 1.56 mg/dL (0.2-1.0); CO2 25.6 mmol/L (21.0-32.0); CREATININE 0.8 mg/dL (0.70-1.30); Calcium 10.1 mg/dL (8.5-10.1); Chloride 94 mmol/L (98-107); Estimated GFR 98.21 (mL/min/1.73m2); Glucose 121 mg/dL (74-106); Magnesium 2.1 mg/dL (1.8-2.4); Potassium 3.7 mmol/L (3.5-5.1); Sodium 133 mmol/L (136-145); TSH (W/Ref FT4) 1.76 uIU/mL (0.36-3.74); Total Protein 8.8 g/dL (6.4-8.2); Troponin I 4 ng/L (<or=76)
[2023-11-27 17:58] LABS: ETHANOL BLOOD < 3.0 mg/dL (<10)
[2023-11-27 18:00] LABS: Ammonia 10 umol/L (11-32)
--- NOTE | 2023-11-27 18:00 | DI.CT_ITS ---
Exam(s) CT ABDOMEN PELVIS W EXAM: CT ABDOMEN PELVIS W CLINICAL HISTORY: abd pain elevated bili. TECHNIQUE: Imaging Protocol: Axial computed tomography images with coronal and sagittal reformatted images were created and reviewed CONTRAST MATERIAL: Intravenous: Omnipaque-350 100cc Oral: None COMPARISON: CT CT CHEST/ABD/PEL W from 02/15/2022 FINDINGS: VISUALIZED LUNG BASES: No nodules nor pleural effusions evident. ABDOMEN: There is no ascites. LIVER: Liver is somewhat hypodense implying steatosis. Skin no calcified granuloma in the upper righ t hepatic lobe is again noted. Small subcapsular probable hemangioma noted posterior right lobe, unc hanged. Previously described area of hypodensity in the right hepatic lobe adjacent to the inter lob ar fissure is unchanged probably related to fatty change. No findings in the left lobe. GALLBLADDER/BILIARY: No obvious gallbladder pathology. CBD is not dilated. PANCREAS: No evidence of pancreatic mass nor dilatation of the pancreatic duct. SPLEEN: Spleen is not enlarged. No obvious intrasplenic lesions. Calcified splenic granulomas are n oted. Splenic and portal veins are patent. ADRENALS: Previously described left adrenal nodules remain unchanged and also unchanges the smaller n odule in the right adrenal gland. KIDNEYS:No cysts evident. No solid renal masses. No calculi nor hydronephrosis.. ABDOMINAL AORTA: Abdominal aorta is not enlarged. LYMPH NODES:There is no retroperitoneal nor paraaortic adenopathy. ABDOMINAL WALL: No evidence of significant anterior abdominal wall nor inguinal hernia. GI: Although the small bowel loops are fluid-filled as is the colon, these findings consistent with e nteritis state. There does not appear to be evidence of an actual bowel obstruction, free air, nor a bscess. No evidence of appendicitis. There are sigmoid diverticuli but no evidence of obvious acute diverticulitis. 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 Normal appearing right IVC. The left IVC drains into the left joi e of the pre aortic left renal vein which itself drains into the intrahepatic IVC, similar to previou s. No thrombi seen within either IVC nor within the iliac veins in the pelvis PELVIS: LYMPH NODES: There is no intrapelvic nor inguinal adenopathy. REPRODUCTIVE: Prostate size slightly prominent. Seminal vesicles unremarkable. URINARY BLADDER: Mild uniform thickening of the urinary bladder wall noted. No bladder distension. No obvious focal masses nor radiopaque calculi in the bladder lumen. The pelvic ureters are not dila coreen. OSSEOUS: No fractures. Multiple small sclerotic unchanged bone lesions in the pelvis consistent with probable benign bone islands again noted. Schmorl's node invagination in the superior endplate of L 1 is unchanged. There are no compression fractures nor listhesis. IMPRESSION: 1. There fluid-filled small and large bowel loops throughout the abdomen and pelvis consistent with e nteritis pattern. There does not appear to be an element of bowel obstruction. There is also some i nvolvement of the stomach and duodenum. Probable diarrheal state but correlate clinically. 2. Sigmoid diverticulosis without evidence of acute diverticulitis. Also no evidence of appendicitis . 3. Stable bilateral adrenal nodules, with nodules in the left adrenal gland being larger than the rig ht but unchanged. 4. Incidental note of double IVC again noted, previously documented. Other findings as above. Report called by myself to ER physician 11/27/2023 at 7:12 p.m. RADIATION DOSE DELIVERED: 234.33mGy.cm Total DLP DATA REPOSITORY: All CT scans at this facility are submitted to the National Radiology Data Registry (NRDR) Dose Index Registry (DIR) with the [employer] ([employer]). RADIATION OPTIMIZATION: All CT scans at this facility use at least one of these dose optimization te chniques: automated exposure control; mA and/or kV adjustment per patient size (includes targeted exa ms where dose is matched to clinical indication); or iterative reconstruction.
[2023-11-27] MEDS: diazePAM 10 MG/2 ML SYR 5 MG IVP (18:26)
[2023-11-27] MEDS: diazePAM 5 MG TAB 10 MG PO (18:26)
[2023-11-27] MEDS: MAGNESIUM SULFATE 8.12 MEQ, MULTIVITAMIN 10 ML, THIAMINE 100 MG, FOLIC ACID 1 MG in Nor... 168.867 MG IV (18:31)
[2023-11-27] MEDS: Normal Saline - Diluent 50 ML VIAL IJ (18:46)
[2023-11-27] MEDS: Omnipaque 350 MG/ML 100 ML BTL IJ (18:48)
[2023-11-27 20:27] LABS: Bilirubin Negative (Negative); Blood Trace-intact (Negative); Clarity Clear (Clear); Glucose Negative (Negative); Ketones 15 mg/dL (Negative); Leukocyte Esterase Negative (Negative); Nitrite Negative (Negative); Urobilinogen 0.2 mg/dL (Up to 0.2)
[2023-11-27 20:37] LABS: Bacteria Rare HPF (Negative); C & S Indicated? No; Casts Negative LPF (Negative); Crystals Negative HPF (Negative); Epithelial Cells Rare HPF (Negative); Mucus Negative (Negative); RBC 0-2 HPF (0-2); WBC 0-2 HPF (0-5)
[2023-11-27] MEDS: Ondansetron O.D.T. 4 MG TABEF PO (20:44)
[2023-11-27 21:01] LABS: *AMPHETAMINES SCREEN URINE Negative (Negative); *BARBITURATES SCREEN URINE Negative (Negative); *BENZODIAZEPINES SCREEN URINE Positive (Negative); Cannabinoids THC Positive (Negative); Cocaine Screen,Urine Negative (Negative); METHADONE URINE SCREEN Negative (Negative); OPIATES URINE SCREEN Negative (Negative)
[2023-11-27 21:03] LABS: Tricyclic Antidepressants Negative (Negative)
== END 2023-11-27 21:03 | disposition home or self-care (01) ==
PROVIDERS: Emergency Provider Emergency Medicine; PCP Family Medicine
DX: R06.02 Shortness of breath (principal); R19.7 Diarrhea, unspecified; I10 Essential (primary) hypertension; F10.10 Alcohol abuse, uncomplicated; Z79.899 Other long term (current) drug therapy
CPT/HCPCS: 80053; 80307; 82962; 93005; 96365; 96366; 96375; 99285; 71045; 74177; 80320; 81003; 81015; 82140; 83735; 84443; 84484; 85025; 93010; 99284; J3360; J3411; J3475; J3490